=== PATIENT | female | born 1940 | race Caucasian/White ===

== ENCOUNTER 2017-06-02 11:43 | Inpatient (IN) | payer MEDICARE, OTHER, SELFPAY ==
[2017-06-02] VITALS (7 sets, daily range): BP systolic 123–146; BP diastolic 68–80; PULSE 76–102; RESP 16–20; TEMP 36.7–37.6; O2SAT 95–98; BMI 31.1; BMI 31.7; BMI 31.6
--- NOTE | 2017-06-02 12:30 | [facility].EDGENADL ---
ED Disposition Clinical Impression: Abscess of pelvis, Abdominal abscess, Diverticulitis of sigmoid colon, Cough Disposition: Admitted as Observation Condition on Discharge: Fair Referrals: Sherri Wild MD [Primary Care Provider] - - Critical Care Critical Care Time: No Attestation: On 06/02/17, the high probability of a clinically significant, sudden or life threatening deterioration of the following system(s) required my full and direct attention, intervention and personal management. The time I documented below is in addition to time spent performing reported procedures but includes the following listed in this critical care notation. Medical Decision Making Vital Signs: 06/02/17 11:51 06/02/17 14:22 Temperature 99.3 F 99.6 F Temperature Source Oral Oral Pulse Rate [Right Radial] 102 H 80 Respiratory Rate 16 16 Blood Pressure [Right Arm] 146/76 137/76 Blood Pressure Mean [Right Arm] 99 96 Blood Pressure Source [Right Arm] Automatic Cuff Automatic Cuff Blood Pressure Position [Right Arm] Supine Supine 02 Sat by Pulse Oximetry 98 97 Oxygen Delivery Method Room Air Room Air - Lab Data Lab Results 06/02/17 13:30: WBC 25.4 H*, RBC 4.68, Hgb 13.7, Hct 42.4, MCV 90.7, MCH 29.2, MCHC 32.2, RDW 14.9, Plt Count 239, MPV 8.0, Neut % (Auto) 94.6 H, Lymph % (Auto) 3.7 L, [place] % (Auto) 1.1 L, Eos % (Auto) 0.5, Baso % (Auto) 0.1, Neut # (Auto) 23.9 H, Lymph # (Auto) 0.9, [place] # (Auto) 0.3, Eos # (Auto) 0.1, Baso # (Auto) 0.0, Total Counted 100, Neutrophils % (Manual) 93 H, Lymphocytes % (Manual) 4 L, Monocytes % (Manual) 3, Platelet Estimate Normal, RBC Morphology Normal 06/02/17 13:30: Sodium 130 L, Potassium 3.7, Chloride 94 L, Carbon Dioxide 27, Anion Gap 12.7, BUN 15, Creatinine 0.90, Estimated Creat Clear 57, Estimated GFR 61, Est GFR ( Amer) 73, Glucose 138 H, Calcium 8.6, Total Bilirubin 0.8, AST 68 H, ALT 139 H, Alkaline Phosphatase 121 H, Total Protein 6.6, Albumin 2.5 L, Globulin 4.1 H, Albumin/Globulin Ratio 0.6 L 06/02/17 13:30: Lactic Acid 1.6 Result diagrams: 06/02/17 13:30 06/02/17 13:30 Orders (Tests/Meds): ED MEDICATIONS Discontinued Medications Generic Name Dose Route Start Last Admin Trade Name Freq PRN Reason Stop Dose Admin Acetaminophen 650 mg 06/02/17 14:24 06/02/17 14:25 Acetaminophen 325mg Tab PO 06/02/17 14:25 650 mg ONCE ONE Administration Sodium Chloride 1,000 mls @ 999 mls/hr 06/02/17 13:15 06/02/17 13:14 Sod Chloride 0.9% 1000ml Bag IV 06/02/17 14:15 999 mls/hr .Q1H1M LOIS Administration Ceftriaxone Sodium 1 gm/ 50 mls @ 100 mls/hr 06/02/17 13:06 06/02/17 13:16 Sodium Chloride IV 06/02/17 13:35 100 mls/hr ONCE ONE Administration ORDERS Category Date Time Status Urinalysis and Microscopic Stat Lab 06/02/17 14:24 Ordered Blood Culture Stat Micro 06/02/17 13:33 Received Sputum Culture & Gram Stain Stat Micro 06/02/17 14:15 Received - CT Data ED CT Reviewed: Yes: I have reviewed the patient's CT results, I discussed the CT results w/the radiologist, I have viewed the radiologist's interpretation - Physician Consults Physician Consulted: Dr. Killian surgery content publisher Reason -: Pt condition Comment/Response: Dr. Killian available as needed for consultation; we reviewed clinical condition as well as CT findings and lab results; recommend admit to PCP on ABX not surgical candidate at this time. Additional Consult: Dr. Pitt PCP content publisher for Dr. Wild Time: 14:42 Reason -: Admission Comment/Response: Brody Cancino, admit to Dr. Pitt - Chidi Inquiry Pt receiving controlled substance: No Medical Decision Making Narrative: Rocephin for R basilar atelectasis/cough/fever. Blood cultures sent; labs pending. Hasn't urinated yet. 1329 General Adult HPI - General Chief complaint: PAIN Stated complaint: low blood work Mode of Arrival: Ambulatory Limitations: Physical Limitations Description of Symptoms (Recalled from ER Triage
--- NOTE | 2017-06-02 12:35 | ED_ITS ---
ED Disposition Clinical Impression: Abscess of pelvis, Abdominal abscess, Diverticulitis of sigmoid colon, Cough Disposition: Admitted as Observation Condition on Discharge: Fair Referrals: Sherri Wild MD [Primary Care Provider] - - Critical Care Critical Care Time: No Attestation: On 06/02/17, the high probability of a clinically significant, sudden or life threatening deterioration of the following system(s) required my full and direct attention, intervention and personal management. The time I documented below is in addition to time spent performing reported procedures but includes the following listed in this critical care notation. Medical Decision Making Vital Signs: 06/02/17 11:51 06/02/17 14:22 Temperature 99.3 F 99.6 F Temperature Source Oral Oral Pulse Rate [Right Radial] 102 H 80 Respiratory Rate 16 16 Blood Pressure [Right Arm] 146/76 137/76 Blood Pressure Mean [Right Arm] 99 96 Blood Pressure Source [Right Arm] Automatic Cuff Automatic Cuff Blood Pressure Position [Right Arm] Supine Supine 02 Sat by Pulse Oximetry 98 97 Oxygen Delivery Method Room Air Room Air - Lab Data Lab Results 06/02/17 13:30: WBC 25.4 H*, RBC 4.68, Hgb 13.7, Hct 42.4, MCV 90.7, MCH 29.2, MCHC 32.2, RDW 14.9, Plt Count 239, MPV 8.0, Neut % (Auto) 94.6 H, Lymph % (Auto ) 3.7 L, [place] % (Auto) 1.1 L, Eos % (Auto) 0.5, Baso % (Auto) 0.1, Neut # (Auto ) 23.9 H, Lymph # (Auto) 0.9, [place] # (Auto) 0.3, Eos # (Auto) 0.1, Baso # (Auto ) 0.0, Total Counted 100, Neutrophils % (Manual) 93 H, Lymphocytes % (Manual) 4 L, Monocytes % (Manual) 3, Platelet Estimate Normal, RBC Morphology Normal 06/02/17 13:30: Sodium 130 L, Potassium 3.7, Chloride 94 L, Carbon Dioxide 27, Anion Gap 12.7, BUN 15, Creatinine 0.90, Estimated Creat Clear 57, Estimated GFR 61, Est GFR ( Amer) 73, Glucose 138 H, Calcium 8.6, Total Bilirubin 0.8, AST 68 H, ALT 139 H, Alkaline Phosphatase 121 H, Total Protein 6.6, Albumin 2.5 L, Globulin 4.1 H, Albumin/Globulin Ratio 0.6 L 06/02/17 13:30: Lactic Acid 1.6 Result diagrams: 06/02/17 13:30 06/02/17 13:30 Orders (Tests/Meds): ED MEDICATIONS Discontinued Medications Generic Name Dose Route Start Last Admin Trade Name Freq PRN Reason Stop Dose Admin Acetaminophen 650 mg 06/02/17 14:24 06/02/17 14:25 Acetaminophen 325mg Tab PO 06/02/17 14:25 650 mg ONCE ONE Administration Sodium Chloride 1,000 mls @ 999 mls/hr 06/02/17 13:15 06/02/17 13:14 Sod Chloride 0.9% 1000ml Bag IV 06/02/17 14:15 999 mls/hr .Q1H1M LOIS Administration Ceftriaxone Sodium 1 gm/ 50 mls @ 100 mls/hr 06/02/17 13:06 06/02/17 13:16 Sodium Chloride IV 06/02/17 13:35 100 mls/hr ONCE ONE Administration ORDERS Category Date Time Status Urinalysis and Microscopic Stat Lab 06/02/17 14:24 Ordered Blood Culture Stat Micro 06/02/17 13:33 Received Sputum Culture & Gram Stain Stat Micro 06/02/17 14:15 Received - CT Data ED CT Reviewed: Yes: I have reviewed the patient's CT results, I discussed the CT results w/the radiologist, I have viewed the radiologist's interpretation - Physician Consults Physician Consulted: Dr. Killian surgery talent development consultant Reason -: Pt condition Comment/Response: Dr. Killian available as needed for consultation; we reviewed clinical condition as well as CT findings and lab results; recommend ad
--- NOTE | 2017-06-02 12:38 | XR_ITS ---
XR chest 2V HISTORY: Cough and fever ITS.REASON: respiratory infection ORDERING PHYSICIAN: Louise Gtz MD PATIENT AGE: 77 years COMPARISON: 06/28/2016 FINDINGS: The cardiomediastinal silhouette and pulmonary vascularity are within normal limits. There is some eventration of the right hemidiaphragm posteriorly with minimal atelectatic change in the right lung base. No lobar consolidation or collapse.. There are multiple old right rib fractures with concave deformity of the right in the thorax. Degenerative changes are present in the thoracic spine with kyphosis.. IMPRESSION: No acute finding. Minimal right basilar atelectasis
--- NOTE | 2017-06-02 12:38 | CT_ITS ---
CT abdomen pelvis wo con CLINICAL INDICATION: Lower abdominal pain ITS.REASON: low abd pain ORDERING PHYSICIAN: Louise Gtz MD PATIENT AGE: 77 years COMPARISON: None TECHNIQUE: Axial images obtained with sagittal and coronal reformats. PROCEDURE: Oral Contrast: None IV Contrast: None . FINDINGS: Lower thoracic images show multiple old right-sided rib fractures and a calcified granuloma in the right lung base with minimal atelectatic change on the right. There is a small hiatal hernia. Prior cholecystectomy with mild prominence of the intra and extrahepatic biliary radicals which may be related to the previous cholecystectomy. The spleen, adrenal glands, pancreas, and kidneys show no acute finding. No hydronephrosis or obstructing ureteral calculus. There are postsurgical changes of the cecum. There is a moderate amount of retained colonic feces throughout the colon. There is diverticulosis of the sigmoid colon. Scattered fluid is present within the pelvis with foci of gas within the fluid. There is a collection of gas with a small air-fluid level in the left pelvic area measuring 4.3 x 2 cm. Stranding of the fat in the pelvis. These findings are likely due to diverticulitis with a perforated diverticulum with local gas in the pelvis. No distant or large amount of free air is evident. The exam is limited without IV and oral contrast. There is some increased soft tissue density along the left aspect of the mid sigmoid colon with a small focus of gas which may be related to the area of diverticulitis with surrounding phlegmonous change. Recommend repeat exam with both IV and appropriate oral contrast. There are degenerative changes in the spine and hips. IMPRESSION: There is fluid with foci of gas within the fluid in the pelvis and suspected developing abscess in the left pelvic region at 4 x 2 cm. Probably related to a locally perforated diverticulitis with phlegmonous change and early abscess. No distant gas or large pneumoperitoneum evident. Recommend repeating exam with appropriate oral and IV contrast for confirmation. Significant findings called to Dr. Gtz on 06/02/2017 2:31 PM.
--- NOTE | 2017-06-02 13:31 | INFXCTL.NOTE ---
CEFAZOLIN PULLED OUT UNDER PATIENTS NAME IN ERROR, MIXED WITH NS 100ML AND WASTED. MED WAS NOT GIVEN TO PT.
--- NOTE | 2017-06-02 13:33 | PC.NURSE ---
PT TO CT
[2017-06-02 13:49] LABS: Basophils % 0.1 % (0.1-2.0); Eosinophils # 0.1 K/mm3 (0.0-0.4); Eosinophils % 0.5 % (0.1-12.0); Hematocrit 42.4 % (37.0-47.0); Hemoglobin 13.7 g/dL (12.2-16.2); Lymphocytes # 0.9 K/mm3 (0.7-4.5); Lymphocytes % 3.7 K/mm3 (10-50); Mean Corpuscular HGB Conc 32.2 g/dL (31.8-35.4); Mean Corpuscular Hemoglobin 29.2 pg (27.0-31.2); Mean Corpuscular Volume 90.7 fl (81-99); Monocytes # 0.3 K/mm3 (0.1-1.0); Monocytes % 1.1 % (1.7-9.3); Neutrophils # 23.9 K/mm3 (1.8-7.8); Neutrophils % 94.6 % (37.0-80.0); Platelet Count 239 K/mm3 (142-424); Red Blood Count 4.68 M/mm3 (4.20-5.40); Red Cell Distribution Width 14.9 % (11.5-17.5)
[2017-06-02 13:52] LABS: Alanine Aminotransferase 139 U/L (12-78); Albumin Level 2.5 gm/dL (3.4-5.0); Albumin/Globulin Ratio 0.6 (1.1-1.8); Alkaline Phosphatase 121 U/L (46-116); Anion Gap 12.7 mEq/L (5-15); Aspartate Amino Transferase 68 U/L (15-37); Bilirubin,Total 0.8 mg/dL (0.2-1.0); Blood Urea Nitrogen 15 mg/dL (7-18); Calcium 8.6 mg/dL (8.5-10.1); Carbon Dioxide 27 mmol/L (21.0-32.0); Chloride 94 mmol/L (98-107); Creatinine Clearance Estimated 57 mL/min (0-300); Estimated Glomerular Filt Rate 61 ml/min (>60); GFR (African American) 73 ML/MIN (>60); Globulin 4.1 gm/dl (1.3-3.2); Glucose 138 mg/dL (74-106); Potassium 3.7 mmoL/L (3.5-5.1); Sodium 130 mmol/L (136-145); Total Protein,Serum 6.6 gm/dL (6.4-8.2); White Blood Count 25.4 K/mm3 (4.8-10.8)
[2017-06-02 13:53] LABS: MANUAL DIFFERENTIAL MANUAL DIFFERENTIAL (MANUAL DIFF)
[2017-06-02 13:55] LABS: Lactic Acid 1.6 mmol/L (0.4-2.0)
[2017-06-02 14:18] LABS: Lymphocytes % 4 % (10-50); Monocytes % 3 % (2-9); Neutrophils % 93 % (42-76); Platelet Estimate Normal; RBC Morphology Normal; Total Cells Counted 100
[2017-06-02 14:39] LABS: Microscopic, Urine URINE MICROSCOPIC (MICROSCOPIC)
[2017-06-02 14:41] LABS: Appearance,Urine CLEAR (Clear); Bilirubin,Urine Negative (Negative); Blood, Urine Negative (Negative); Color,Urine YELLOW (Yellow); Glucose,Urine (UA) Negative (Negative); Ketones,Urine Negative (Negative); Leukocyte Esterase,Urine Negative (Negative); Nitrate,Urine Negative (Negative); Protein,Urine TRACE (Negative); Specific Gravity, Urine 1.015 (1.005-1.030); Urobilinogen,Urine 0.2 EU/dl (0.2)
[2017-06-02 14:55] LABS: Bacteria,Urine 2+ /lpf; RBC,Urine Occasional #/hpf (0-3); Squamous Epithelial Cell,Urine Occasional #/hpf (0-5)
--- NOTE | 2017-06-02 16:00 | PC.NURSE ---
pt has finished contrast, radiology and 2nd floor aware
--- NOTE | 2017-06-02 16:28 | [facility].HP ---
*Admission Date: 06/02/17 *Chief complaint: Abdominal pain *History of present illness: 87-year-old female presented to the emergency department with lower abdominal pain present for a little over 24 hours. Patient had actually been seen in the office today by 1 of my nurse practitioners with complaints of severe lower quadrant abdominal pain. In the office patient had an elevated white blood cell count to 22,000. She was sent to the emergency department for additional workup and evaluation. In the ER patient's workup revealed elevated white blood cell count with an abnormal CT scan suggestive of a diverticular abscess versus early diverticulitis. Patient was given Levaquin and Flagyl and admitted. Surgical consultation is pending. Patient denies fevers or chills over the last 24 hours. She denies any history of prior diverticulosis or diverticulitis and does not believe she has ever had a colonoscopy. [facility] History Medical History: Denies:: Cancer, Diabetes Mellitus Type 1, Diabetes Mellitus Type 2, MRSA Laterality Cases: Left: Total Knee Replacement Other Surgeries: Yes: Hysterectomy-Total Amputation: No Fractures: No Comment: Cholecystectomy, lumbar spine surgery - *Social History Educational Level: Completed High School Smoking Status: Former smoker Alcohol Intake: never - Psychiatric History Expresses thoughts of harming self/others: None Suicide Plan Description: No Plan Review of Systems - Review of Systems Review of systems:: pertinent systems reviewed and negative unless documented below - Constitutional Reports fatigue, Reports weakness, Denies body ache(s), Denies chills, Denies fever(s) - *Cardiovascular Denies chest pain - *Respiratory Reports cough, Denies shortness of breath - *Gastrointestinal Reports abdominal pain, Denies change in stools, Denies coffee ground vomit, Denies constipation Meds Home Medications Medication Instructions Recorded Confirmed Type Amlodipine Besylate [Amlodipine 5 mg PO DAILY 06/02/17 06/02/17 History 10mg Tab] Baclofen [Lioresal 10mg tablet] 10 mg PO TID 06/02/17 06/02/17 History Calcium Carbonate/Vitamin D3 1 each PO DAILY 06/02/17 06/02/17 History [Caltrate 600 + D Soft Chew Tab] Cholecalciferol (Vitamin D3) 1,000 unit PO DAILY 06/02/17 06/02/17 History [Vitamin D3 1,000 Unit Cap] Esomeprazole Magnesium [Nexium] 10 mg PO DAILY 06/02/17 06/02/17 History Folic Acid 0.4 mg PO DAILY 06/02/17 06/02/17 History Metoprolol Succinate [Toprol XL 50 mg PO DAILY 06/02/17 06/02/17 History 50mg Tablet] Oxycodone HCl [Oxycodone (IR) 10mg 10 mg PO TID 06/02/17 06/02/17 History Tab] Ropinirole HCl 1 mg PO DAILY 06/02/17 06/02/17 History Simvastatin 10 mg PO DAILY 06/02/17 06/02/17 History Zolpidem Tartrate [Ambien 10mg 10 mg PO HS 06/02/17 06/02/17 History tablet] metHOTREXate sodium [metHOTREXate 7.5 mg PO WEEKLY 06/02/17 06/02/17 History 2.5mg Tablet] Allergies Allergy/AdvReac Type Severity Reaction Status Date / Time celecoxib [From CELEBREX] Allergy Unknown Verified 06/02/17 13:04 Exam Vital signs and Labs for Last 24 Hours: Temp Pulse Resp BP Pulse Ox 98.4 F 97 H 16 137/80 97 06/02/17 15:30 06/02/17 15:30 06/02/17 15:30 06/02/17 15:30 06/02/17 15:30 Laboratory Results - last 24 hr 06/02/17 13:30: WBC 25.4 H*, RBC 4.68, Hgb 13.7, Hct 42.4, MCV 90.7, MCH 29.2, MCHC 32.2, RDW 14.9, Plt Count 239, MPV 8.0, Neut % (Auto) 94.6 H, Lymph % (Auto) 3.7 L, [place] % (Auto) 1.1 L, Eos % (Auto) 0.5, Baso % (Auto) 0.1, Neut # (Auto) 23.9 H, Lymph # (Auto) 0.9, [place] # (Auto) 0.3, Eos # (Auto) 0.1, Baso # (Auto) 0.0, Total Counted 100, Neutrophils % (Manual) 93 H, Lymphocytes % (Manual) 4 L, Monocytes % (Manual) 3, Platelet Estimate Normal, RBC Morphology Normal 06/02/17 13:30: Sodium 130 L, Potassium 3.7, Chloride 94 L, Carbon Dioxide 27, Anion Gap 12.7, BUN 15, Creatinine 0.90, Estimated Creat Clear 57, Estimated GFR 61, Est GFR (Afri
--- NOTE | 2017-06-02 16:32 | P.HP_ITS ---
*Admission Date: 06/02/17 *Chief complaint: Abdominal pain *History of present illness: 87-year-old female presented to the emergency department with lower abdominal pain present for a little over 24 hours. Patient had actually been seen in the office today by 1 of my nurse practitioners with complaints of severe lower quadrant abdominal pain. In the office patient had an elevated white blood cell count to 22,000. She was sent to the emergency department for additional workup and evaluation. In the ER patient's workup revealed elevated white blood cell count with an abnormal CT scan suggestive of a diverticular abscess versus early diverticulitis. Patient was given Levaquin and Flagyl and admitted. Surgical consultation is pending. Patient denies fevers or chills over the last 24 hours. She denies any history of prior diverticulosis or diverticulitis and does not believe she has ever had a colonoscopy. [facility] History Medical History: Denies:: Cancer, Diabetes Mellitus Type 1, Diabetes Mellitus Type 2, MRSA Laterality Cases: Left: Total Knee Replacement Other Surgeries: Yes: Hysterectomy-Total Amputation: No Fractures: No Comment: Cholecystectomy, lumbar spine surgery - *Social History Educational Level: Completed High School Smoking Status: Former smoker Alcohol Intake: never - Psychiatric History Expresses thoughts of harming self/others: None Suicide Plan Description: No Plan Review of Systems - Review of Systems Review of systems:: pertinent systems reviewed and negative unless documented below - Constitutional Reports fatigue, Reports weakness, Denies body ache(s), Denies chills, Denies fever(s) - *Cardiovascular Denies chest pain - *Respiratory Reports cough, Denies shortness of breath - *Gastrointestinal Reports abdominal pain, Denies change in stools, Denies coffee ground vomit, Denies constipation Meds Home Medications Medication Instructions Recorded Confirmed Type Amlodipine Besylate [Amlodipine 5 mg PO DAILY 06/02/17 06/02/17 History 10mg Tab] Baclofen [Lioresal 10mg tablet] 10 mg PO TID 06/02/17 06/02/17 History Calcium Carbonate/Vitamin D3 1 each PO DAILY 06/02/17 06/02/17 History [Caltrate 600 + D Soft Chew Tab] Cholecalciferol (Vitamin D3) 1,000 unit PO DAILY 06/02/17 06/02/17 History [Vitamin D3 1,000 Unit Cap] Esomeprazole Magnesium [Nexium] 10 mg PO DAILY 06/02/17 06/02/17 History Folic Acid 0.4 mg PO DAILY 06/02/17 06/02/17 History Metoprolol Succinate [Toprol XL 50 mg PO DAILY 06/02/17 06/02/17 History 50mg Tablet] Oxycodone HCl [Oxycodone (IR) 10mg 10 mg PO TID 06/02/17 06/02/17 History Tab] Ropinirole HCl 1 mg PO DAILY 06/02/17 06/02/17 History Simvastatin 10 mg PO DAILY 06/02/17 06/02/17 History Zolpidem Tartrate [Ambien 10mg 10 mg PO HS 06/02/17 06/02/17 History tablet] metHOTREXate sodium [metHOTREXate 7.5 mg PO WEEKLY 06/02/17 06/02/17 History 2.5mg Tablet] Allergies Allergy/AdvReac Type Severity Reaction Status Date / Time celecoxib [From CELEBREX] Allergy Unknown Verified 06/02/17 13:04 Exam Vital signs and Labs for Last 24 Hours: Temp Pulse Resp BP Pulse Ox 98.4 F 97 H 16 137/80 97 06/02/17 15:30 06/02/17 15:30 06/02/17 15:30 06/02/17 15:30 06/02/17 15:30 Laboratory Results - last 24 hr 06/02/17 13:30: WBC 25.4 H*, RBC 4.68, Hgb 13.7, Hct 42.4, MCV 90.7
--- NOTE | 2017-06-02 17:32 | HMH.GSCON ---
*Admission Date: 06/02/17 *Chief complaint: abdominal pain *History of present illness: This is an 87-year-old female seen in consultation from Dr. Pitt for evaluation and management of diverticulitis. She presented to the emergency department with lower abdominal pain for about a day . The following has been copied from the patient's history and physical as per Dr. Pitt: 87-year-old female presented to the emergency department with lower abdominal pain present for a little over 24 hours. Patient had actually been seen in the office today by 1 of my nurse practitioners with complaints of severe lower quadrant abdominal pain. In the office patient had an elevated white blood cell count to 22,000. She was sent to the emergency department for additional workup and evaluation. In the ER patient's workup revealed elevated white blood cell count with an abnormal CT scan suggestive of a diverticular abscess versus early diverticulitis. Patient was given Levaquin and Flagyl and admitted. Patient denies fevers or chills over the last 24 hours. She denies any history of prior diverticulosis or diverticulitis and does not believe she has ever had a colonoscopy. Review of Systems - Constitutional Denies weight loss - *Cardiovascular Denies chest pain - *Respiratory Reports cough - *Gastrointestinal Reports abdominal pain, Denies bright, red blood in stools, Denies black, tarry stools - *Neurologic Reports weakness, Denies dizziness - Psychiatric Denies anxiety - Hematologic/Lymphatic Denies easy bleeding [facility] History Medical History: Reports:: Hypertension, Peripheral Vascular Disease Denies:: Cancer, Diabetes Mellitus Type 1, Diabetes Mellitus Type 2, MRSA Other Medical History: Reports: Cataracts Laterality Cases: Left: Total Knee Replacement, Bilateral: Cataract Other Surgeries: Yes: Appendectomy, Hysterectomy-Total Amputation: No Fractures: No - *Social History Educational Level: Completed High School Smoking Status: Former smoker Alcohol Intake: never Occupational Status: retired Housing: house Household Members: none - Psychiatric History Expresses thoughts of harming self/others: None Suicide Plan Description: No Plan *Family Hx:: No significant family history Meds Home Medications Medication Instructions Recorded Confirmed Type Amlodipine Besylate [Amlodipine 5 mg PO DAILY 06/02/17 06/02/17 History 10mg Tab] Baclofen [Lioresal 10mg tablet] 10 mg PO TID 06/02/17 06/02/17 History Calcium Carbonate/Vitamin D3 1 each PO DAILY 06/02/17 06/02/17 History [Caltrate 600 + D Soft Chew Tab] Cholecalciferol (Vitamin D3) 1,000 unit PO DAILY 06/02/17 06/02/17 History [Vitamin D3 1,000 Unit Cap] Esomeprazole Magnesium [Nexium] 10 mg PO DAILY 06/02/17 06/02/17 History Folic Acid 0.4 mg PO DAILY 06/02/17 06/02/17 History Metoprolol Succinate [Toprol XL 50 mg PO DAILY 06/02/17 06/02/17 History 50mg Tablet] Oxycodone HCl [Oxycodone (IR) 10mg 10 mg PO TID 06/02/17 06/02/17 History Tab] Ropinirole HCl 1 mg PO DAILY 06/02/17 06/02/17 History Simvastatin 10 mg PO DAILY 06/02/17 06/02/17 History Zolpidem Tartrate [Ambien 10mg 10 mg PO HS 06/02/17 06/02/17 History tablet] metHOTREXate sodium [metHOTREXate 7.5 mg PO WEEKLY 06/02/17 06/02/17 History 2.5mg Tablet] Allergies Allergy/AdvReac Type Severity Reaction Status Date / Time celecoxib [From CELEBREX] Allergy Unknown Verified 06/02/17 13:04 Exam Vital signs and Labs for Last 24 Hours: Temp Pulse Resp BP Pulse Ox 98.1 F 78 18 123/71 98 06/02/17 17:14 06/02/17 17:14 06/02/17 17:14 06/02/17 17:14 06/02/17 17:14 I & O for Last 24 hours: Intake & Output 05/31/17 06/01/17 06/02/17 06/03/17 11:59 11:59 11:59 11:59 Intake Total 1100 / 1100 Balance 1100 / 1100 Weight 173 lb 5 oz - Constitutional no acute distress - *Routine HEENT Exam Head: Present: normocephalic, atraumatic - *Routine R
--- NOTE | 2017-06-02 17:35 | P.CONS_ITS ---
*Admission Date: 06/02/17 *Chief complaint: abdominal pain *History of present illness: This is an 87-year-old female seen in consultation from Dr. Pitt for evaluation and management of diverticulitis. She presented to the emergency department with lower abdominal pain for about a day . The following has been copied from the patient's history and physical as per Dr. Pitt: 87-year-old female presented to the emergency department with lower abdominal pain present for a little over 24 hours. Patient had actually been seen in the office today by 1 of my nurse practitioners with complaints of severe lower quadrant abdominal pain. In the office patient had an elevated white blood cell count to 22,000. She was sent to the emergency department for additional workup and evaluation. In the ER patient's workup revealed elevated white blood cell count with an abnormal CT scan suggestive of a diverticular abscess versus early diverticulitis. Patient was given Levaquin and Flagyl and admitted. Patient denies fevers or chills over the last 24 hours. She denies any history of prior diverticulosis or diverticulitis and does not believe she has ever had a colonoscopy. Review of Systems - Constitutional Denies weight loss - *Cardiovascular Denies chest pain - *Respiratory Reports cough - *Gastrointestinal Reports abdominal pain, Denies bright, red blood in stools, Denies black, tarry stools - *Neurologic Reports weakness, Denies dizziness - Psychiatric Denies anxiety - Hematologic/Lymphatic Denies easy bleeding [facility] History Medical History: Reports:: Hypertension, Peripheral Vascular Disease Denies:: Cancer, Diabetes Mellitus Type 1, Diabetes Mellitus Type 2, MRSA Other Medical History: Reports: Cataracts Laterality Cases: Left: Total Knee Replacement, Bilateral: Cataract Other Surgeries: Yes: Appendectomy, Hysterectomy-Total Amputation: No Fractures: No - *Social History Educational Level: Completed High School Smoking Status: Former smoker Alcohol Intake: never Occupational Status: retired Housing: house Household Members: none - Psychiatric History Expresses thoughts of harming self/others: None Suicide Plan Description: No Plan *Family Hx:: No significant family history Meds Home Medications Medication Instructions Recorded Confirmed Type Amlodipine Besylate [Amlodipine 5 mg PO DAILY 06/02/17 06/02/17 History 10mg Tab] Baclofen [Lioresal 10mg tablet] 10 mg PO TID 06/02/17 06/02/17 History Calcium Carbonate/Vitamin D3 1 each PO DAILY 06/02/17 06/02/17 History [Caltrate 600 + D Soft Chew Tab] Cholecalciferol (Vitamin D3) 1,000 unit PO DAILY 06/02/17 06/02/17 History [Vitamin D3 1,000 Unit Cap] Esomeprazole Magnesium [Nexium] 10 mg PO DAILY 06/02/17 06/02/17 History Folic Acid 0.4 mg PO DAILY 06/02/17 06/02/17 History Metoprolol Succinate [Toprol XL 50 mg PO DAILY 06/02/17 06/02/17 History 50mg Tablet] Oxycodone HCl [Oxycodone (IR) 10mg 10 mg PO TID 06/02/17 06/02/17 History Tab] Ropinirole HCl 1 mg PO DAILY 06/02/17 06/02/17 History Simvastatin 10 mg PO DAILY 06/02/17 06/02/17 History Zolpidem Tartrate [Ambien 10mg 10 mg PO HS 06/02/17 06/02/17 History tablet] metHOTREXate sodium [metHOTREXate 7.5 mg PO WEEKLY 06/02/17 06/02/17 History 2.5mg Tablet] Allergies Allergy/AdvReac Type Severity Reaction Status Date / Time celecoxib [From CELEBREX] Allergy Unkno
--- NOTE | 2017-06-02 18:58 | PC.NURSE ---
I CONFIRMED WITH PATIENT FAMILY THAT SHE TOOK HER METHOTREXATE YESTERDAY 06/01/17
--- NOTE | 2017-06-02 19:15 | PC.NURSE ---
PT FULL CODE; REPORT RECEIVED FROM LUDWIG
--- NOTE | 2017-06-02 20:07 | CT_ITS ---
CT abdomen pelvis w con CLINICAL INDICATION: Follow-up pelvic abscess ITS.REASON: pelvic abscess on CT w/o contrast; f/u PO/IV contr ORDERING PHYSICIAN: Kiko Pitt MD PATIENT AGE: 77 years COMPARISON: Previous exam of the same day TECHNIQUE: Axial images obtained with sagittal and coronal reformats. PROCEDURE: Oral Contrast: Gastroview IV Contrast: 75 mL of Isovue-370. FINDINGS: Repeat images performed of the abdomen and pelvis with IV and oral contrast. Delayed images are also obtained of the pelvis. Extra colonic gas interspersed within pelvic fluid is once again noted. There is an inflamed diverticulum present projecting off the left lateral aspect of the mid sigmoid colon consistent with diverticulitis. Left-sided pelvic gas collection with air-fluid level noted consistent with early abscess measuring 4 x 2 cm There is some mild thickening of the urinary bladder. No distant free air is evident. No intestinal obstruction. There is prominence of the intra and extrahepatic biliary radicals and is patient that has had prior cholecystectomy. Common hepatic duct measures up to 15 mm. IMPRESSION: Sigmoid diverticulitis with local perforation with extra colic gas in the pelvis scattered pelvic fluid. Left-sided pelvic abscess noted as before measuring approximately 4 x 2 cm
[2017-06-03 04:00] VITALS: BP 141/72; PULSE 89; RESP 24; TEMP 37; O2SAT 96
--- NOTE | 2017-06-03 05:03 | PC.NURSE ---
PT ALERT, PLEASANTLY CONFUSED AT TIMES. PT HAS NOT COMPLAINED OF PAIN OR DISCOMFORT THIS SHIFT. SHE HAS SLEPT LONG INTERVALS. SCATTERED WHEEZES. NO COUGHING NOTED. IV #20 LAC INFUSING D5 1/2NS@50ML/HR, W/O S/S OF REDNESS OR EDEMA. PT CONTINUES RECEIVING IV ABX. TOLERATING CLEAR LIQUIDS WELL. PT STABLE. WILL CONTINUE TO MONITOR. REPORT TO BE GIVEN TO ONCOMING NURSE.
--- NOTE | 2017-06-03 07:16 | PC.NURSE ---
REPORT GIVEN TO Sherri SANTILLAN W/C
--- NOTE | 2017-06-03 07:26 | HMH.GSPN ---
Subjective Patient reports: no new complaints, flatus (feels slightly better) Exam Vital signs and Labs for Last 24 Hours: Temp Pulse Resp BP Pulse Ox 98.6 F 89 24 141/72 96 06/03/17 04:00 06/03/17 04:00 06/03/17 04:00 06/03/17 04:00 06/03/17 04:00 I & O for Last 24 hours: Intake & Output 05/31/17 06/01/17 06/02/17 06/03/17 11:59 11:59 11:59 11:59 Intake Total 1938 Balance 1938 Weight 173 lb 5 oz - Constitutional no acute distress - *Routine Respiratory Exam Absent: respiratory distress - *Routine Cardiovascular Exam Comments: unchanged - *Routine Abdominal Exam Present: soft (slightly less TTP) Progress Note: A&P (1) Diverticulitis of sigmoid colon Status: Acute Assessment and plan: The patient has shown slight improvement. Abscess immature and not amenable to drainage. continue abx serial exams full liquids repeat CT with contrast in ~7 days to assess abscess for possible resolution or maturation and potential need for drainage Current Visit: Yes
[2017-06-03 07:50] LABS: Basophils % 0.1 % (0.1-2.0); Eosinophils % 0.2 % (0.1-12.0); Hematocrit 35.2 % (37.0-47.0); Lymphocytes # 1.6 K/mm3 (0.7-4.5); Lymphocytes % 7.8 K/mm3 (10-50); Mean Corpuscular HGB Conc 32.2 g/dL (31.8-35.4); Mean Corpuscular Hemoglobin 29.7 pg (27.0-31.2); Mean Corpuscular Volume 92.2 fl (81-99); Mean Platelet Volume 7.9 fl (7.4-10.4); Monocytes # 0.4 K/mm3 (0.1-1.0); Monocytes % 1.8 % (1.7-9.3); Neutrophils # 17.8 K/mm3 (1.8-7.8); Neutrophils % 90.1 % (37.0-80.0); Platelet Count 217 K/mm3 (142-424); Red Blood Count 3.82 M/mm3 (4.20-5.40); Red Cell Distribution Width 14.9 % (11.5-17.5); White Blood Count 19.8 K/mm3 (4.8-10.8)
--- NOTE | 2017-06-03 07:51 | P.PN_ITS ---
Internal Medicine - PN: Subj *Date: 06/03/17 *Time: 07:49 Interval history: Patient believes she feels better. She still has some lower abdominal pain. She denies nausea or vomiting. No fevers overnight. Exam Vital signs and Labs for Last 24 Hours: Temp Pulse Resp BP Pulse Ox 98.6 F 89 24 141/72 96 06/03/17 04:00 06/03/17 04:00 06/03/17 04:00 06/03/17 04:00 06/03/17 04:00 Laboratory Results - last 24 hr 06/02/17 13:30: WBC 25.4 H*, RBC 4.68, Hgb 13.7, Hct 42.4, MCV 90.7, MCH 29.2, MCHC 32.2, RDW 14.9, Plt Count 239, MPV 8.0, Neut % (Auto) 94.6 H, Lymph % (Auto ) 3.7 L, Mcclain % (Auto) 1.1 L, Eos % (Auto) 0.5, Baso % (Auto) 0.1, Neut # (Auto ) 23.9 H, Lymph # (Auto) 0.9, [place]clain # (Auto) 0.3, Eos # (Auto) 0.1, Baso # (Auto ) 0.0, Total Counted 100, Neutrophils % (Manual) 93 H, Lymphocytes % (Manual) 4 L, Monocytes % (Manual) 3, Platelet Estimate Normal, RBC Morphology Normal 06/02/17 13:30: Sodium 130 L, Potassium 3.7, Chloride 94 L, Carbon Dioxide 27, Anion Gap 12.7, BUN 15, Creatinine 0.90, Estimated Creat Clear 57, Estimated GFR 61, Est GFR ( Amer) 73, Glucose 138 H, Calcium 8.6, Total Bilirubin 0.8, AST 68 H, ALT 139 H, Alkaline Phosphatase 121 H, Total Protein 6.6, Albumin 2.5 L, Globulin 4.1 H, Albumin/Globulin Ratio 0.6 L 06/02/17 13:30: Lactic Acid 1.6 06/02/17 14:20: Influenza Type A Ag Negative, Influenza Type B Ag Negative 06/02/17 14:24: Urine Color Yellow, Urine Appearance Clear, Urine pH 8.0, Ur Specific Comfrey 1.015, Urine Protein Trace, Urine Glucose (UA) Negative, Urine Ketones Negative, Urine Blood Negative, Urine Nitrate Negative, Urine Bilirubin Negative, Urine Urobilinogen 0.2, Ur Leukocyte Esterase Negative, Urine RBC Occasional, Urine WBC 5-10, Ur Squamous Epith Cells Occasional, Urine Bacteria 2 + I & O for Last 24 hours: Intake & Output 05/31/17 06/01/17 06/02/17 06/03/17 11:59 11:59 11:59 11:59 Intake Total 1938 Balance 1938 Weight 173 lb 5 oz Narrative: Patient is awake and alert. Lungs are clear. Heart has a regular rate and rhythm. Abdomen has mild tenderness in left lower and right lower quadrant. Assessment and Plan (1) Diverticulitis of sigmoid colon Current visit: Yes Status: Acute Category: Medical Code(s): K57.32 - Diverticulitis of large intestine without perforation or abscess without bleeding - Assessment and plan all Dx Assessment and Plan for all problems:: Continue serial CBCs and serial abdominal examinations. Continue liquid diet
[2017-06-03 08:00] VITALS: PULSE 87; RESP 18; O2SAT 97
[2017-06-03 08:26] VITALS: BP 119/63; PULSE 87; RESP 18; TEMP 36.7; O2SAT 97
[2017-06-03 08:28] LABS: MANUAL DIFFERENTIAL MANUAL DIFFERENTIAL (MANUAL DIFF)
[2017-06-03 08:29] LABS: Hemoglobin 11.4 g/dL (12.2-16.2)
[2017-06-03 09:15] LABS: Anion Gap 9.8 mEq/L (5-15); Blood Urea Nitrogen 13 mg/dL (7-18); Carbon Dioxide 30 mmol/L (21.0-32.0); Chloride 100 mmol/L (98-107); Creatinine Clearance Estimated 58 mL/min (0-300); Creatinine,Serum 0.82 mg/dL (0.55-1.02); Estimated Glomerular Filt Rate 68 ml/min (>60); GFR (African American) 82 ML/MIN (>60); Glucose 133 mg/dL (74-106); Potassium 3.8 mmoL/L (3.5-5.1); Sodium 136 mmol/L (136-145)
[2017-06-03 10:41] LABS: Lymphocytes % 9 % (10-50); Monocytes % 2 % (2-9); Neutrophils % 89 % (42-76); Platelet Estimate Normal; RBC Morphology Normal; Total Cells Counted 100
--- NOTE | 2017-06-03 10:46 | P.CONPHA_ITS ---
[facility] Pharmacy VTE Monitoring - Patient Demographics Admission date: 06/02/17 Report Date: 06/03/17 Time: 10:46 Allergies/Adverse Reactions: Patient Allergies celecoxib [From CELEBREX] Allergy (Unknown, Verified 06/02/17 13:04) Height: 1.57 m Weight: 78.613 kg Patient Problems: Current Active Problems Abscess of pelvis (Acute) Abdominal abscess (Acute) Diverticulitis of sigmoid colon (Acute) Cough (Acute) - VTE Risk Labs: VTE Related Lab Results Hgb 11.4 g/dL (12.2-16.2) L D 06/03/17 06:45 Hct 35.2 % (37.0-47.0) L 06/03/17 06:45 Plt Count 217 K/mm3 (142-424) 06/03/17 06:45 BUN 13 mg/dL (7-18) 06/03/17 06:45 Creatinine 0.82 mg/dL (0.55-1.02) 06/03/17 06:45 Estimated Creat Clear 58 mL/min (0-300) 06/03/17 06:45 Was VTE Risk Assessment Performed: Yes VTE Score: 3 VTE Risk Level: Low Risk - Prophylaxis VTE Prophylaxis Ordered?: Yes Types of VTE Prophylaxis: TEDS Knee High Location of Applied Device: Bilateral Lower Extremeties - VTE Diagnosis Confirmed Treatment or plan recommended: Continue Current Treatment
--- NOTE | 2017-06-03 15:40 | PC.NURSE ---
A&O X3. Lungs clear, bowel sounds normal. Lower abd mildly tender to palpation. Treated w/prn pain med x1 thus far. Pain was reported a 7/10 w/pt reporting relief after receiving meds. She has remained afebrile. She has been up to the chair and ambulating around her room short distances independently. Tolerating full liquid diet w/no complaints noted. Family has been at bedside. Will continue to monitor.
[2017-06-03 16:10] VITALS: BP 123/76; PULSE 90; RESP 18; TEMP 36.9; O2SAT 94
--- NOTE | 2017-06-03 18:58 | PC.NURSE ---
report to be given to willis honeycutt rn
--- NOTE | 2017-06-03 19:00 | PC.NURSE ---
PT FULL CODE, REPORT RECEIVED FROM JANNA
[2017-06-03 20:06] VITALS: BP 112/53; PULSE 83; RESP 16; TEMP 37.1; O2SAT 95
[2017-06-03 21:20] VITALS: O2SAT 95
[2017-06-04 03:32] VITALS: BP 147/76; PULSE 74; RESP 18; TEMP 36.9; O2SAT 95
--- NOTE | 2017-06-04 04:52 | PC.NURSE ---
PT SLEPT LONG INTERVALS THIS SHIFT. IV SECURE AND PATENT D5W1/2NS@50/HR. CONTINUES ON FLAGYL. TOLERATING FULL LIQUID DIET. HAS LABS ORDERED 0600. RESPIRATIONS EVEN AND UNLABORED, BREATH SOUNDS SCATTERED WHEEZES. PT HAS COUGH, MOSTLY DRY AND HACKY. HAS TEDS ON BOTH LEGS. NO C/O CHEST PAIN OR SOA. ON ROOM AIR. C/O ABD PAIN X2 THIS SHIFT AND MEDICATION GIVEN PER JUL. PT STABLE. WILL CONTINUE TO MONITOR. REPORT TO BE GIVEN TO ONCOMING NURSE.
[2017-06-04 06:25] LABS: Basophils % 0.1 % (0.1-2.0); Eosinophils # 0.1 K/mm3 (0.0-0.4); Eosinophils % 0.9 % (0.1-12.0); Hematocrit 37.2 % (37.0-47.0); Hemoglobin 11.7 g/dL (12.2-16.2); Lymphocytes # 1.7 K/mm3 (0.7-4.5); Lymphocytes % 11.3 K/mm3 (10-50); Mean Corpuscular HGB Conc 31.3 g/dL (31.8-35.4); Mean Corpuscular Volume 92.5 fl (81-99); Mean Platelet Volume 7.9 fl (7.4-10.4); Monocytes # 0.3 K/mm3 (0.1-1.0); Neutrophils # 13.3 K/mm3 (1.8-7.8); Neutrophils % 85.7 % (37.0-80.0); Platelet Count 258 K/mm3 (142-424); Red Blood Count 4.02 M/mm3 (4.20-5.40); Red Cell Distribution Width 14.7 % (11.5-17.5); White Blood Count 15.5 K/mm3 (4.8-10.8)
[2017-06-04 06:29] LABS: MANUAL DIFFERENTIAL MANUAL DIFFERENTIAL (MANUAL DIFF)
[2017-06-04 06:38] LABS: Lymphocytes % 12 % (10-50); Neutrophils % 80 % (42-76); Platelet Estimate Normal; Polychromasia 1+; Total Cells Counted 100
[2017-06-04 06:39] LABS: Anisocytosis 1+; Rouleaux 1+
--- NOTE | 2017-06-04 07:15 | PC.NURSE ---
REPORT GIVEN TO Sherri SANTILLAN W/C
[2017-06-04 08:00] VITALS: RESP 20; O2SAT 96
[2017-06-04 08:12] VITALS: BP 122/54; PULSE 84; RESP 20; TEMP 36.4; O2SAT 96
--- NOTE | 2017-06-04 08:41 | HMH.ACPN2 ---
Internal Medicine - PN: Subj *Date: 06/04/17 *Time: 08:41 Interval history: Patient had a comfortable night, feels better, has less abdominal pain and no vomiting, tolerating diet well. Laboratory Tests 06/03/17 06/04/17 06:45 06:15 WBC 15.5 H Creatinine 0.82 Exam Vital signs and Labs for Last 24 Hours: Temp Pulse Resp BP Pulse Ox 97.5 F L 84 20 122/54 96 06/04/17 08:12 06/04/17 08:12 06/04/17 08:12 06/04/17 08:12 06/04/17 08:12 Laboratory Results - last 24 hr 06/03/17 06:45: Total Counted 100, Neutrophils % (Manual) 89 H, Lymphocytes % (Manual) 9 L, Monocytes % (Manual) 2, Platelet Estimate Normal, RBC Morphology Normal 06/03/17 06:45: Sodium 136, Potassium 3.8, Chloride 100, Carbon Dioxide 30, Anion Gap 9.8, BUN 13, Creatinine 0.82, Estimated Creat Clear 58, Estimated GFR 68, Est GFR ( Amer) 82, Glucose 133 H 06/04/17 06:15: WBC 15.5 H, RBC 4.02 L, Hgb 11.7 L, Hct 37.2, MCV 92.5, MCH 29.0, MCHC 31.3 L, RDW 14.7, Plt Count 258, MPV 7.9, Neut % (Auto) 85.7 H, Lymph % (Auto) 11.3, Schleicher % (Auto) 2.0, Eos % (Auto) 0.9, Baso % (Auto) 0.1, Neut # (Auto) 13.3 H, Lymph # (Auto) 1.7, Schleicher # (Auto) 0.3, Eos # (Auto) 0.1, Baso # (Auto) 0.0, Total Counted 100, Neutrophils % (Manual) 80 H, Band Neutrophils % 8.0, Lymphocytes % (Manual) 12, Platelet Estimate Normal, Polychromasia 1+, Anisocytosis 1+, Rouleaux 1+ I & O for Last 24 hours: Intake & Output 06/01/17 06/02/17 06/03/17 06/04/17 11:59 11:59 11:59 11:59 Intake Total 2499 / 2499 3418 / 3418 Balance 2499 / 2499 3418 / 3418 Weight 173 lb 5 oz Narrative: Patient is alert, pleasant, oriented. Lungs are clear, heart rate regular, abdomen soft and nontender. Minimal discomfort in the left lower quadrant the patient reports is much better. Assessment and Plan - Assessment and plan all Dx Assessment and Plan for all problems:: Overall improving, leukocytosis resolving. Continue current management.
--- NOTE | 2017-06-04 08:59 | HMH.GSPN ---
Subjective Patient reports: feels better Exam Vital signs and Labs for Last 24 Hours: Temp Pulse Resp BP Pulse Ox 97.5 F L 84 20 122/54 96 06/04/17 08:12 06/04/17 08:12 06/04/17 08:12 06/04/17 08:12 06/04/17 08:12 Laboratory Results - last 24 hr 06/03/17 06:45: Total Counted 100, Neutrophils % (Manual) 89 H, Lymphocytes % (Manual) 9 L, Monocytes % (Manual) 2, Platelet Estimate Normal, RBC Morphology Normal 06/03/17 06:45: Sodium 136, Potassium 3.8, Chloride 100, Carbon Dioxide 30, Anion Gap 9.8, BUN 13, Creatinine 0.82, Estimated Creat Clear 58, Estimated GFR 68, Est GFR ( Amer) 82, Glucose 133 H 06/04/17 06:15: WBC 15.5 H, RBC 4.02 L, Hgb 11.7 L, Hct 37.2, MCV 92.5, MCH 29.0, MCHC 31.3 L, RDW 14.7, Plt Count 258, MPV 7.9, Neut % (Auto) 85.7 H, Lymph % (Auto) 11.3, [place] % (Auto) 2.0, Eos % (Auto) 0.9, Baso % (Auto) 0.1, Neut # (Auto) 13.3 H, Lymph # (Auto) 1.7, [place] # (Auto) 0.3, Eos # (Auto) 0.1, Baso # (Auto) 0.0, Total Counted 100, Neutrophils % (Manual) 80 H, Band Neutrophils % 8.0, Lymphocytes % (Manual) 12, Platelet Estimate Normal, Polychromasia 1+, Anisocytosis 1+, Rouleaux 1+ I & O for Last 24 hours: Intake & Output 06/01/17 06/02/17 06/03/17 06/04/17 11:59 11:59 11:59 11:59 Intake Total 2499 / 2499 3418 / 3418 Balance 2499 / 2499 3418 / 3418 Weight 173 lb 5 oz - Constitutional no acute distress - *Routine Respiratory Exam Absent: respiratory distress - *Routine Cardiovascular Exam Comments: unchanged - *Routine Abdominal Exam Present: soft Comments: somewhat less TTP Progress Note: A&P (1) Diverticulitis of sigmoid colon Status: Acute Assessment and plan: Improving on IV antibiotics Continue IV antibiotics Consider PICC for possible IV antibiotics at home If the patient continues to improve, repeat CT scan with contrast and possible abscess drainage in approximately 1 week Current Visit: Yes
--- NOTE | 2017-06-04 09:06 | P.PN_ITS ---
Subjective Patient reports: feels better Exam Vital signs and Labs for Last 24 Hours: Temp Pulse Resp BP Pulse Ox 97.5 F L 84 20 122/54 96 06/04/17 08:12 06/04/17 08:12 06/04/17 08:12 06/04/17 08:12 06/04/17 08:12 Laboratory Results - last 24 hr 06/03/17 06:45: Total Counted 100, Neutrophils % (Manual) 89 H, Lymphocytes % ( Manual) 9 L, Monocytes % (Manual) 2, Platelet Estimate Normal, RBC Morphology Normal 06/03/17 06:45: Sodium 136, Potassium 3.8, Chloride 100, Carbon Dioxide 30, Anion Gap 9.8, BUN 13, Creatinine 0.82, Estimated Creat Clear 58, Estimated GFR 68, Est GFR ( Amer) 82, Glucose 133 H 06/04/17 06:15: WBC 15.5 H, RBC 4.02 L, Hgb 11.7 L, Hct 37.2, MCV 92.5, MCH 29.0 , MCHC 31.3 L, RDW 14.7, Plt Count 258, MPV 7.9, Neut % (Auto) 85.7 H, Lymph % ( Auto) 11.3, [place] % (Auto) 2.0, Eos % (Auto) 0.9, Baso % (Auto) 0.1, Neut # (Auto ) 13.3 H, Lymph # (Auto) 1.7, [place] # (Auto) 0.3, Eos # (Auto) 0.1, Baso # (Auto ) 0.0, Total Counted 100, Neutrophils % (Manual) 80 H, Band Neutrophils % 8.0, Lymphocytes % (Manual) 12, Platelet Estimate Normal, Polychromasia 1+, Anisocytosis 1+, Rouleaux 1+ I & O for Last 24 hours: Intake & Output 06/01/17 06/02/17 06/03/17 06/04/17 11:59 11:59 11:59 11:59 Intake Total 2499 / 2499 3418 / 3418 Balance 2499 / 2499 3418 / 3418 Weight 173 lb 5 oz - Constitutional no acute distress - *Routine Respiratory Exam Absent: respiratory distress - *Routine Cardiovascular Exam Comments: unchanged - *Routine Abdominal Exam Present: soft Comments: somewhat less TTP Progress Note: A&P (1) Diverticulitis of sigmoid colon Status: Acute Assessment and plan: Improving on IV antibiotics Continue IV antibiotics Consider PICC for possible IV antibiotics at home If the patient continues to improve, repeat CT scan with contrast and possible abscess drainage in approximately 1 week Current Visit: Yes
[2017-06-04 15:29] VITALS: BP 116/59; PULSE 85; RESP 18; TEMP 37.1; O2SAT 98
--- NOTE | 2017-06-04 15:49 | PC.NURSE ---
Pt's lungs are clear. Bowel sounds active. Lower abd is slightly tender to palpation. Prn pain meds were requested q4hrs for abd pain rated a 7/10. She verbalizes relief w/administration of pain med. Heart has rrr. She has remained afebrile thus far. She has been up to the chair and has ambulated around her room independently. Family has been at bedside intermittently. Report to be given to oncoming nurse. Will continue to monitor.
--- NOTE | 2017-06-04 18:49 | PC.NURSE ---
Report to be given to Nirmala Garnica RN
--- NOTE | 2017-06-04 19:15 | PC.NURSE ---
PT FULL CODE; REPORT RECEIVED FROM JANNA
[2017-06-04 20:00] VITALS: BP 139/80; PULSE 84; RESP 18; TEMP 37.3; O2SAT 96
[2017-06-04 20:37] VITALS: O2SAT 96
[2017-06-05 04:00] VITALS: BP 125/79; PULSE 76; RESP 76; TEMP 36.7; O2SAT 98
[2017-06-05 04:22] LABS: Basophils % 0.2 % (0.1-2.0); Eosinophils # 0.3 K/mm3 (0.0-0.4); Hematocrit 38.1 % (37.0-47.0); Hemoglobin 12.4 g/dL (12.2-16.2); Lymphocytes % 13.9 K/mm3 (10-50); Mean Corpuscular HGB Conc 32.7 g/dL (31.8-35.4); Mean Corpuscular Hemoglobin 29.8 pg (27.0-31.2); Mean Corpuscular Volume 91.2 fl (81-99); Mean Platelet Volume 8.2 fl (7.4-10.4); Monocytes # 0.6 K/mm3 (0.1-1.0); Monocytes % 4.4 % (1.7-9.3); Neutrophils # 11.8 K/mm3 (1.8-7.8); Neutrophils % 79.6 % (37.0-80.0); Platelet Count 256 K/mm3 (142-424); Red Blood Count 4.18 M/mm3 (4.20-5.40); Red Cell Distribution Width 14.6 % (11.5-17.5); White Blood Count 14.8 K/mm3 (4.8-10.8)
--- NOTE | 2017-06-05 06:14 | PC.NURSE ---
PT ALERT AND ORIENTED. SLEPT INTERVALS. IV SECURE AND PATENT. D5W 1/2NS@50/HR. CONTINUES ON IV ABX. NO C/O PAIN OR REQUEST FOR PRN PAIN MEDICATION OF THIS TIME. PT VERY INDEPENDENT, GAIT STEADY. OCCASIONAL HACKY COUGH NOTED, BREATH SOUNDS CLEAR. VSS. TOLERATING FULL LIQUID DIET. PT STABLE. WILL CONTINUE TO MONITOR. REPORT TO BE GIVEN TO ONCOMING NURSE.
--- NOTE | 2017-06-05 07:23 | XR_ITS ---
XR chest portable PICC plac pCXR #1 Ordering Physician: Kiko Pitt MD Patient Age: 77 years: Female HISTORY: ITS.REASON: Check PICC placement TECHNIQUE: AP portable upright chest-at 10 AM COMPARISON :Chest film #1 from ~ 7-10 minutes minutes earlier \ FINDINGS AP chest performed after PICC line was placed. This initial chest film shows that the PICC line loops back upon itself at the left axillary vein region,; with tip at the left subclavian vein beneath the clavicle.. Likely relative restriction at this point were vein passes between clavicle and first rib... Lungs otherwise remain clear with no acute findings. Mild cardiomegaly. Mildly tortuous aorta. Arthritic both shoulders with likely reflect underlying rotator cuff tear a at left shoulder and possibly right.. Old distal right clavicle fracture,/ osseous irregularity at distal tip of right clavicle at AC joint IMPRESSION: PICC line looped back upon itself in the region of the left axillary vein,. With tip left subclavian veinbeneath mid left clavicle lungs clear no active disease. Mild cardiomegaly again noted .
--- NOTE | 2017-06-05 07:24 | HMH.DCSUM ---
General - General Admission date: 06/02/17 Discharge date: 06/05/17 HPI HPI: 87-year-old female presented to the emergency department with lower abdominal pain present for a little over 24 hours. Patient had actually been seen in the office today by 1 of my nurse practitioners with complaints of severe lower quadrant abdominal pain. In the office patient had an elevated white blood cell count to 22,000. She was sent to the emergency department for additional workup and evaluation. In the ER patient's workup revealed elevated white blood cell count with an abnormal CT scan suggestive of a diverticular abscess versus early diverticulitis. Patient was given Levaquin and Flagyl and admitted. Patient denies fevers or chills over the last 24 hours. She denies any history of prior diverticulosis or diverticulitis and does not believe she has ever had a colonoscopy. Objective Vital signs: Temp Pulse Resp BP Pulse Ox 98.1 F 76 76 H 125/79 98 06/05/17 04:00 06/05/17 04:00 06/05/17 04:00 06/05/17 04:00 06/05/17 04:00 Hospital Course Hospital Course: Patient was admitted and placed on IV Levaquin and Flagyl. CT scan with IV and oral contrast was performed which showed a 4 x 2 cm left-sided pelvic abscess along with diverticulitis and a focal perforation. Patient was admitted on clear liquids. Over the 72 hour hospitalization patient's abdominal pain gradually improved each day and her diet was able to be advanced to full liquids. On the day of discharge patient was pain-free. Dr. Junior of the surgical service had been following along and recommended IV antibiotics for another week and repeat CT scan at that time. Patient was ambulating, tolerating her diet and had significant improvement in pain. PICC line was inserted and patient was transitioned to IV Invanz 1 g daily. She will stay on this regimen for the next week and CT scan will be repeated as instructed by Dr. Junior. Results Labs on day of discharge: Labs from last 24 hours 06/05/17 04:10 WBC 14.8 H RBC 4.18 L Hgb 12.4 Hct 38.1 MCV 91.2 MCH 29.8 MCHC 32.7 RDW 14.6 Plt Count 256 MPV 8.2 Neut % (Auto) 79.6 Lymph % (Auto) 13.9 Ellis % (Auto) 4.4 Eos % (Auto) 2.0 Baso % (Auto) 0.2 Neut # (Auto) 11.8 H Lymph # (Auto) 2.0 Ellis # (Auto) 0.6 Eos # (Auto) 0.3 Baso # (Auto) 0.0 - Imaging and Cardiology CT scan - abdomen Status: final report DS: Diagnosis - Discharge Diagnosis (1) Diverticulitis of sigmoid colon Status: Acute (2) Colonic diverticular abscess Status: Acute Meds Home Medications Medication Instructions Recorded Confirmed Type Amlodipine Besylate [Amlodipine 5 mg PO DAILY 06/02/17 06/02/17 History 10mg Tab] Baclofen [Lioresal 10mg tablet] 10 mg PO TID 06/02/17 06/02/17 History Benzonatate [Benzonatate 100mg 100 mg PO TID 06/02/17 06/02/17 History cap] Calcium Carbonate/Vitamin D3 1 each PO DAILY 06/02/17 06/02/17 History [Caltrate 600 + D Soft Chew Tab] Cholecalciferol (Vitamin D3) 1,000 unit PO DAILY 06/02/17 06/02/17 History [Vitamin D3 1,000 Unit Cap] Donepezil HCl [Aricept 10mg tablet] 10 mg PO DAILY 06/02/17 06/02/17 History Duloxetine HCl [Cymbalta] 60 mg PO DAILY 06/02/17 06/02/17 History Esomeprazole Magnesium [Nexium] 40 mg PO DAILY 06/02/17 06/02/17 History Folic Acid 0.4 mg PO DAILY 06/02/17 06/02/17 History Metoprolol Succinate [Toprol XL 50 mg PO DAILY 06/02/17 06/02/17 History 50mg Tablet] Prednisone 20mg Tab 20 mg PO BID 06/02/17 06/02/17 History Ropinirole HCl 1 - 2 mg PO DAILY 06/02/17 06/02/17 History Simvastatin 20 mg PO DAILY 06/02/17 06/02/17 History Zolpidem Tartrate [Ambien 10mg 5 - 10 mg PO HS 06/02/17 06/02/17 History tablet] levoFLOXacin [Levaquin 500mg 500 mg PO DAILY 06/02/17 06/02/17 History tab] metHOTREXate sodium [metHOTREXate 7.5 mg PO WEEKLY 06/02/17 06/02/17 History 2.5mg Tablet] Aller
--- NOTE | 2017-06-05 07:25 | PC.NURSE ---
REPORT GIVEN TO Leno TRAN W/C
--- NOTE | 2017-06-05 07:27 | P.DS_ITS ---
General - General Admission date: 06/02/17 Discharge date: 06/05/17 HPI HPI: 87-year-old female presented to the emergency department with lower abdominal pain present for a little over 24 hours. Patient had actually been seen in the office today by 1 of my nurse practitioners with complaints of severe lower quadrant abdominal pain. In the office patient had an elevated white blood cell count to 22,000. She was sent to the emergency department for additional workup and evaluation. In the ER patient's workup revealed elevated white blood cell count with an abnormal CT scan suggestive of a diverticular abscess versus early diverticulitis. Patient was given Levaquin and Flagyl and admitted. Patient denies fevers or chills over the last 24 hours. She denies any history of prior diverticulosis or diverticulitis and does not believe she has ever had a colonoscopy. Objective Vital signs: Temp Pulse Resp BP Pulse Ox 98.1 F 76 76 H 125/79 98 06/05/17 04:00 06/05/17 04:00 06/05/17 04:00 06/05/17 04:00 06/05/17 04:00 Hospital Course Hospital Course: Patient was admitted and placed on IV Levaquin and Flagyl. CT scan with IV and oral contrast was performed which showed a 4 x 2 cm left-sided pelvic abscess along with diverticulitis and a focal perforation. Patient was admitted on clear liquids. Over the 72 hour hospitalization patient's abdominal pain gradually improved each day and her diet was able to be advanced to full liquids. On the day of discharge patient was pain-free. Dr. Junior of the surgical service had been following along and recommended IV antibiotics for another week and repeat CT scan at that time. Patient was ambulating, tolerating her diet and had significant improvement in pain. PICC line was inserted and patient was transitioned to IV Invanz 1 g daily. She will stay on this regimen for the next week and CT scan will be repeated as instructed by Dr. Junior. Results Labs on day of discharge: Labs from last 24 hours 06/05/17 04:10 WBC 14.8 H RBC 4.18 L Hgb 12.4 Hct 38.1 MCV 91.2 MCH 29.8 MCHC 32.7 RDW 14.6 Plt Count 256 MPV 8.2 Neut % (Auto) 79.6 Lymph % (Auto) 13.9 [place] % (Auto) 4.4 Eos % (Auto) 2.0 Baso % (Auto) 0.2 Neut # (Auto) 11.8 H Lymph # (Auto) 2.0 [place] # (Auto) 0.6 Eos # (Auto) 0.3 Baso # (Auto) 0.0 - Imaging and Cardiology CT scan - abdomen Status: final report DS: Diagnosis - Discharge Diagnosis (1) Diverticulitis of sigmoid colon Status: Acute (2) Colonic diverticular abscess Status: Acute Meds Home Medications Medication Instructions Recorded Confirmed Type Amlodipine Besylate [Amlodipine 5 mg PO DAILY 06/02/17 06/02/17 History 10mg Tab] Baclofen [Lioresal 10mg tablet] 10 mg PO TID 06/02/17 06/02/17 History Benzonatate [Benzonatate 100mg 100 mg PO TID 06/02/17 06/02/17 History cap] Calcium Carbonate/Vitamin D3 1 each PO DAILY 06/02/17 06/02/17 History [Caltrate 600 + D Soft Chew Tab] Cholecalciferol (Vitamin D3) 1,000 unit PO DAILY 06/02/17 06/02/17 History [Vitamin D3 1,000 Unit Cap] Donepezil HCl [Aricept 10mg tablet] 10 mg PO DAILY 06/02/17 06/02/17 History Duloxetine HCl [Cymbalta] 60 mg PO DAILY 01
--- NOTE | 2017-06-05 07:50 | P.PN_ITS ---
Subjective Patient reports: feels better Exam Vital signs and Labs for Last 24 Hours: Temp Pulse Resp BP Pulse Ox 98.1 F 76 76 H 125/79 98 06/05/17 04:00 06/05/17 04:00 06/05/17 04:00 06/05/17 04:00 06/05/17 04:00 Laboratory Results - last 24 hr 06/05/17 04:10: WBC 14.8 H, RBC 4.18 L, Hgb 12.4, Hct 38.1, MCV 91.2, MCH 29.8, MCHC 32.7, RDW 14.6, Plt Count 256, MPV 8.2, Neut % (Auto) 79.6, Lymph % (Auto) 13.9, [place] % (Auto) 4.4, Eos % (Auto) 2.0, Baso % (Auto) 0.2, Neut # (Auto) 11.8 H, Lymph # (Auto) 2.0, [place] # (Auto) 0.6, Eos # (Auto) 0.3, Baso # (Auto) 0.0 I & O for Last 24 hours: Intake & Output 06/02/17 06/03/17 06/04/17 06/05/17 11:59 11:59 11:59 11:59 Intake Total 2499 / 2499 3768 / 3768 3275 / 3275 Output Total 900 / 900 Balance 2499 / 2499 3768 / 3768 2375 / 2375 Weight 173 lb 5 oz - Constitutional no acute distress - *Routine Respiratory Exam Absent: respiratory distress - *Routine Cardiovascular Exam Comments: unchanged - *Routine Abdominal Exam Present: soft Comments: less TTP Progress Note: A&P (1) Diverticulitis of sigmoid colon Status: Acute Assessment and plan: Improving Likely d/c home with IV abx and close outpatient follow-up Current Visit: Yes
[2017-06-05 08:49] VITALS: BP 141/79; PULSE 75; RESP 18; TEMP 37.1; O2SAT 100
--- NOTE | 2017-06-05 09:38 | PC.NURSE ---
PICC LINE RN NURSE IS NOW IN WITH THE PATIENT TO START HER LINE.
[2017-06-05 09:39] VITALS: RESP 18
--- NOTE | 2017-06-05 09:49 | P.PN_ITS ---
Internal Medicine - PN: Subj *Date: 06/05/17 *Time: 09:49 Exam Vital signs and Labs for Last 24 Hours: Temp Pulse Resp BP Pulse Ox 98.7 F 75 18 141/79 100 06/05/17 08:49 06/05/17 08:49 06/05/17 09:39 06/05/17 08:49 06/05/17 08:49 Laboratory Results - last 24 hr 06/05/17 04:10: WBC 14.8 H, RBC 4.18 L, Hgb 12.4, Hct 38.1, MCV 91.2, MCH 29.8, MCHC 32.7, RDW 14.6, Plt Count 256, MPV 8.2, Neut % (Auto) 79.6, Lymph % (Auto) 13.9, [place] % (Auto) 4.4, Eos % (Auto) 2.0, Baso % (Auto) 0.2, Neut # (Auto) 11.8 H, Lymph # (Auto) 2.0, [place] # (Auto) 0.6, Eos # (Auto) 0.3, Baso # (Auto) 0.0 I & O for Last 24 hours: Intake & Output 06/02/17 06/03/17 06/04/17 06/05/17 23:59 23:59 23:59 23:59 Intake Total 1200 / 1200 3472 / 3472 4160 / 4160 950 / 950 Output Total 900 / 900 Balance 1200 / 1200 3472 / 3472 3260 / 3260 950 / 950 Weight 78.613 kg 78.613 kg The patient's infection will respond to the chosen ABx?: Yes (GOING HOME ON INVANZ) Is the patient receiving the right drug, dose, and route?: Yes Could a more targeted ABx be ordered?: No
--- NOTE | 2017-06-05 10:12 | XR_ITS ---
XR chest portable PICC plac pCXR #2. Ordering Physician: Kiko Pitt MD Patient Age: 77 years: Female HISTORY: ITS.REASON: PICC placement TECHNIQUE: AP portable upright chest-at 2 10:15 AM COMPARISON :Chest film #1 from ~ 7-10 minutes minutes earlier FINDINGS This repeat chest film after PICC line nurse repositiond the catheter. PICC line continues to loop at back upon itself at the left axillary vein,; with tip at the left subclavian vein beneath the clavicle. Just. Likely restriction at this point were pain passes between clavicle and first rib... Lungs otherwise remain clear with no acute findings. Mild cardiomegaly. Mildly tortuous aorta. Arthritic changes both shoulders with probable underlying rotator cuff tear a left and possibly right shoulder. Old distal right clavicle fracture,/ osseous irregularity at distal right clavicle and AC joint IMPRESSION: PICC line continues loop at the left axillary vein. With tip behind the clavicle at left subclavian vein lungs clear no active disease. Mild cardiomegaly again noted .
--- NOTE | 2017-06-05 10:38 | FL_ITS ---
XR chest AP, FL guided central line placemt PA chest #3. Today Following PICC line manipulation under fluoroscopy by Dr. Lance Ordering Physician: Kiko Pitt MD Patient Age: 77 years: Female HISTORY: ITS.REASON: UPPER BACK PAIN Unsuccessful PICC line placement on the floor now requiring fluoroscopic guidance TECHNIQUE:: 1. Fluoroscopic imaging with repositioning of PICC line catheter-byDr. Lance 2. Upright PA chest performed at 11:23 AM COMPARISON CXR:Studies from earlier today ======== FLUOROSCOPIC REDIRECTED, PLACEMENT PICC LINE-by radiologist Dr. Lance After unsuccessful PICC line placement positioning on the second floor patient was brought to radiology for fluoroscopic guidance were PICC line placement. Patient was brought to x-ray in order to reposition the central line. Using sterile technique this PICC line was pulled back back repositioned under fluoroscopy, and then was advanced under fluoroscopy by by rotating and twist catheter slightly in order to advance it into SVC under fluoroscopy by Dr. Lance.. ======== PA CXR: The final image shows the tip is at the SVC near the cavoatrial junction as seen on is seen and documented on this final chest #3. film from today. Otherwise noteBorderline cardiomegaly. Lungs otherwise appear clear with no active disease. Old right rib fractures again noted. Atelectatic changes of both shoulders. IMPRESSION: 1. Under fluoroscopic guidance PICC line was pulled back and then readvanced by Dr. Lance, with twisting such tip was advanced to the SVC. The tip the PICC line satisfactory position and SVC above cavoatrial junction as seen on the final film . 2. No active disease in the chest otherwise more likely megaly
--- NOTE | 2017-06-05 10:50 | PC.NURSE ---
KAREN FROM SURGERY TOOK THE PATIENT DOWN TO OUTPATIENT SURGERY TO HAVE HER PICC LINE PLACED. SHE HAD TRIED AT THE BEDSIDE AND IT WAS NOT IN CORRECT PLACEMENT ACCORDING TO XRAY. ANOTHER ATTEMPT FOR PLACEMENT WILL BE DONE. PATIENT NOW OFF THE FLOOR FOR THIS PROCEDURE.
--- NOTE | 2017-06-05 11:32 | PC.NURSE ---
PATIENT NOW BACK IN HER ROOM, PICC LINE WAS SUCCESSFULLY PLACED. PATIENT TOLERATED PROCEDURE WELL. HER IV ANTIBIOTICS WILL FINISH INFUSING THEN WILL BE DISCHARGED FOR HOME.
--- NOTE | 2017-06-05 12:33 | PC.NURSE ---
PICC WAS PLACED AT BEDSIDE; AFTER FIRST XRAY THE PICC WAS CURLED UPON ITSELF; MANIPULATED THE PICC AT BEDSIDE; DID ANOTHER XRAY AND THE PICC WAS STILL CURLED; PICC WAS SECURELY LEFT IN PLACE AND PT WAS TAKEN TO [facility] AND WITH THE ASSISTANCE OF DON THE PICC WAS MANIPULATED IN THE RIGHT POSITION; PT TOLERATING WITHOUT ANY PROBLEMS.
--- NOTE | 2017-06-05 12:38 | PC.NURSE ---
IV ANTIBIOTICS ARE NOW FINISHED, PERIPHERAL SITE REMOVED, PICC LINE IN PLACE. PATIENT IS NOW GETTING DRESSED FOR HOME.
--- NOTE | 2017-06-05 13:27 | SW/DCPLANNER ---
RECEIVED REFERRAL FOR THIS PATIENT FOR IV INVANZ 1 GRAM X 10 DAYS.....PATIENT HAS ELECTED TO DO OUT PATIENT AND COME BACK TO [facility] FOR THIS TO BE DONE...PATIENT DISCHARING TO HOME TODAY....
== END 2017-06-05 12:58 | disposition home health service (06) | DRG 392 ==
LOC: ER 14:43 → 2ND 15:23
PROVIDERS: Admitting Provider Family Medicine; Emergency Provider Emergency Medicine; Family Provider Family Medicine; PCP Family Medicine; Visit Provider Family Medicine
DX: K57.20 Diverticulitis of large intestine with perforation and abscess without bleeding (principal); I10 Essential (primary) hypertension
CPT/HCPCS: 36569; 36415; 71045; 71046; 74176; 74177; 77001; 80048; 80053; 81001; 83605; 85007; 85025; 87040; 87070; 87086; 87205; 87275; 87276; 96366; 96367; 99282; 99283; C1751; J1956; J2405; Q9967

== ENCOUNTER 2017-06-06 10:00 | Outpatient (CLI) | payer MEDICARE, OTHER, SELFPAY ==
[2017-06-06 10:45] VITALS: BP 137/74; PULSE 68; RESP 20; TEMP 36.2; O2SAT 98
== END 2017-06-06 10:55 | disposition home or self-care (01) ==
LOC: INF 15:12
PROVIDERS: Family Provider Family Medicine; PCP Family Medicine; Visit Provider Family Medicine
DX: K57.92 Diverticulitis of intestine, part unspecified, without perforation or abscess without bleeding (principal)
CPT/HCPCS: 96365; J1335

== ENCOUNTER 2017-06-07 10:50 | Outpatient (CLI) | payer MEDICARE, OTHER, SELFPAY ==
[2017-06-07 11:11] VITALS: BMI 30.9
[2017-06-07 12:13] VITALS: BP 135/67; RESP 18; TEMP 37.1
== END 2017-06-07 12:10 | disposition home or self-care (01) ==
LOC: INF 10:52
PROVIDERS: Family Provider Family Medicine; PCP Family Medicine; Visit Provider Family Medicine
DX: K57.20 Diverticulitis of large intestine with perforation and abscess without bleeding (principal)
CPT/HCPCS: 96365; J1335

== ENCOUNTER 2017-06-08 10:15 | Outpatient (CLI) | payer MEDICARE, OTHER, SELFPAY ==
[2017-06-08 10:30] VITALS: BMI 30.9
[2017-06-08 10:55] VITALS: BMI 30.9
[2017-06-08 11:00] VITALS: BP 126/62; PULSE 60; RESP 16; TEMP 36.4
[2017-06-08 11:30] VITALS: BP 136/67; PULSE 76; RESP 16
[2017-06-08 11:40] VITALS: BP 138/70; PULSE 70; RESP 18
== END 2017-06-08 12:00 | disposition home or self-care (01) ==
LOC: INF 12:24
PROVIDERS: PCP Family Medicine; Visit Provider Family Medicine
DX: K57.20 Diverticulitis of large intestine with perforation and abscess without bleeding (principal)
CPT/HCPCS: 96365; J1335

== ENCOUNTER 2017-06-09 12:40 | Outpatient (CLI) | payer MEDICARE, OTHER, SELFPAY ==
[2017-06-09 13:32] VITALS: BP 123/78; PULSE 68; RESP 20; TEMP 36.4; O2SAT 95
[2017-06-09 14:00] VITALS: BP 122/78; PULSE 66; RESP 20; TEMP 37.1; O2SAT 95
[2017-06-09 14:27] VITALS: BMI 30.9
[2017-06-09 14:42] LABS: Blood Urea Nitrogen 12 mg/dL (7-18); Creatinine Clearance Estimated 57 mL/min (0-300); Creatinine,Serum 0.74 mg/dL (0.55-1.02); Estimated Glomerular Filt Rate 76 ml/min (>60); GFR (African American) 92 ML/MIN (>60)
== END 2017-06-09 14:00 | disposition home or self-care (01) ==
LOC: INF 15:19
PROVIDERS: Family Provider Family Medicine; PCP Family Medicine; Visit Provider Family Medicine
DX: K57.20 Diverticulitis of large intestine with perforation and abscess without bleeding (principal)
CPT/HCPCS: 82565; 84520; 96365; J1335

== ENCOUNTER → 2017-06-10 11:44 | Outpatient (CLI) | payer MEDICARE, OTHER, SELFPAY ==
[2017-06-10 15:08] LABS: Adenovirus F 40/41, stool Not Detected (NotDetected); Astrovirus Not Detected (NotDetected); Campylobacter Not Detected (NotDetected); Clostridium Difficile A/B, PCR Not Detected (NotDetected); Cryptosporidium Not Detected (NotDetected); Cyclospora Cayetanesis Not Detected (NotDetected); Entamoeba histolytica Not Detected (NotDetected); Enteroaggregative E coli Not Detected (NotDetected); Enteropathogenic E coli Not Detected (NotDetected); Enterotoxigenic E coli Not Detected (NotDetected); Giardia lamblia Not Detected (NotDetected); Norovirus Not Detected (NotDetected); Plesimonas Shigalloides, PCR Not Detected (NotDetected); Rotavirus A Not Detected (NotDetected); Salmonella, PCR Not Detected (NotDetected); Sapovirus Not Detected (NotDetected); Shiga-like toxin E coli Not Detected (NotDetected); Shigella Enterovasive E coli Not Detected (NotDetected); Vibrio Cholerae Not Detected (NotDetected); Vibrio, PCR Not Detected (NotDetected); Yersinia Entercolitica, PCR Not Detected (NotDetected)
== END ==
LOC: RAD 06-12 09:23 → LAB 06-12 17:30
PROVIDERS: Family Provider Family Medicine; PCP Family Medicine; Visit Provider Family Medicine
DX: K52.1 Toxic gastroenteritis and colitis (principal); K57.20 Diverticulitis of large intestine with perforation and abscess without bleeding
CPT/HCPCS: 87507

== ENCOUNTER → 2017-06-10 12:15 | Outpatient (CLI) | payer MEDICARE, OTHER, SELFPAY ==
[2017-06-10 12:15] VITALS: BP 127/70; PULSE 70; RESP 20; TEMP 36.6; O2SAT 96
--- NOTE | 2017-06-10 16:57 | PC.NURSE ---
77 YEAR OLD WHITE FEMALE PRESENTS TO THE HOSPITAL FOR AN IV INFUSION OF INVANZ 1 GRAM PER PICC LINE. PATIENT EDUCATION WAS PROVIDED AND DAUGHTER AND PATIENT VERBALIZED UNDERSTANDING. IV INFUSED WITHOUT DIFFICULTY. PATIENT TOLERATED THE PROCEDURE WELL. PATIENT DENIES PAIN OR DISCOMFORT. IV MEDICATION MIXED BY PHARMACY. RONN MOSCOSO, MSN,RN
== END ==
PROVIDERS: Family Provider Family Medicine; PCP Family Medicine; Visit Provider Family Medicine
DX: K57.20 Diverticulitis of large intestine with perforation and abscess without bleeding (principal)
CPT/HCPCS: 87507; 96365; J1335

== ENCOUNTER → 2017-06-11 14:01 | Outpatient (CLI) | payer MEDICARE, OTHER, SELFPAY ==
[2017-06-11 14:20] VITALS: BP 116/64; PULSE 67; RESP 20; TEMP 36.7; O2SAT 96; BMI 31.1
== END ==
PROVIDERS: Family Provider Family Medicine; PCP Family Medicine; Visit Provider Family Medicine
DX: K57.20 Diverticulitis of large intestine with perforation and abscess without bleeding (principal)
CPT/HCPCS: 96365; G0463; J1335

== ENCOUNTER 2017-06-12 09:00 | Outpatient (CLI) | payer MEDICARE, OTHER, SELFPAY ==
--- NOTE | 2017-06-12 09:20 | CT_ITS ---
CT abdomen pelvis w con Ordering Physician: Kiko Pitt MD Patient Age: 77 years: Female HISTORY: ITS.REASON: COLONIC DIVERTICULAR ABSCESS 1. Dramatic to the 12 nodes only gone 40 minutes sigmoid film this CT noted since the ER as a stat 6 [facility] faxed TECHNIQUE: Helical CT scanning performed through abdomen and pelvis following 75 cc [id number]. Axial and coronal reconstructions on CT workstation. Oral contrast was also administered with the timing of such Indicated COMPARISON :Previous CT abdomen pelvis 06/02/2017 both pre and postcontrast studies FINDINGS There is been overall improvement since previous study 06/02/2017. . Overall s Less inflammation is seen throughout the lower pelvis. Except to note more diffuse wall thickening of the wall the distal sigmoid colon. The fluid collection previously described is clearly overall smaller the distal Thicker enhancing maturing duque evident. At this modest abscess collection This appears to be a broad U shaped fluid/abscess collection-with limb extending along left pelvic sidewall as well when extending to the right posterior pelvis, right of midline.: . The elongated limb to the left, containing fluid and gas an air-fluid level.,. It appears to extend from the initial inflamed diverticulum at the mid left sigmoid colon, then extends along the left pelvic sidewall just adjacent to the the left iliac vessels.. It Continuing to the dependent pelvis passing inferior to the thickened distal sigmoid colon. Overall Decreased gas and fluid- with smaller Air-fluid level is seen here today.... . It is best seen in its entirety on sagittal image 60 where it does measure up to 6 cm length x 17 mm-but is clearly smaller than previous study.. The other limb of the this U shaped fluid collection extends beneath the sigmoid colon continues to the right posterior pelvis.. & Measures up to 5 cm x 2.3 cm. On axial image 77. It is clearly smaller with surrounding maturing thickened enhancing wall of this modest abscess collection (Previously this same fluid collection measured 6 cm x 4 cm and is clearly decreased in size). The likely inciting inflamed diverticulum seen extending to the left of the mid sigmoid colon as shown improvement as well.- Less thickened , smaller with less gas associated. Axial image 77-79. .. Generous stool stool is seen at rectum. Prominent stool is seen at right and transverse colon moderate stool descending colon sigmoid. Appearance suggests [id number] constipation. Is patient on pain medication? Oral Contrast is seen throughout the stool at large bowel.. Although this may reflect oral contrast administered today it does extend throughout the entire large bowel is suggested was administered several hours prior to the scan. Oral contrast oh seen information was not included technologist Lung bases appear stable. Calcified granuloma posterior right base. Cholecystectomy with stable intrahepatic biliary ductal dilatation likely reflecting such. The common duct appears dilated up to 12 mm as previously noted Liver. No focal lesions. Pancreas unremarkable Kidneys. Unremarkable.. Previously fullness of both collecting systems has regressed. Diffuse calcified small caliber lower abdominal aorta. Osseous Degenerative disc changes most evident at lower L-spine is stable IMPRESSION 1.. Overall improvement.: ... Decreased inflammation throughout pelvis from the diverticulitis, with Decreased size of the abscess fluid collection. ... Only note slight interval increased wall thickening throughout distal sigmoid colon adjacent to abscess collection 2. Decreased size of this abscess fluid collection at pelvis clearly evident, with interval wall thickening & maturation.. This broad U shaped fluid collec
--- NOTE | 2017-06-12 09:39 | HMH.ITSHM ---
SEE PRIOR LIST
[2017-06-12 10:12] VITALS: BP 144/98; PULSE 68; RESP 20; TEMP 36.6; O2SAT 97
[2017-06-12 10:27] VITALS: BP 141/94; PULSE 69; RESP 20; O2SAT 99
[2017-06-12 10:48] VITALS: BP 140/89; PULSE 70; RESP 20; O2SAT 97
== END 2017-06-12 10:50 | disposition home or self-care (01) ==
PROVIDERS: PCP Family Medicine; Visit Provider Family Medicine
DX: K57.20 Diverticulitis of large intestine with perforation and abscess without bleeding (principal)
CPT/HCPCS: 74177; 96365; J1335; Q9967

== ENCOUNTER 2017-06-13 12:00 | Outpatient (CLI) | payer MEDICARE, SELFPAY ==
[2017-06-13 12:35] VITALS: BP 135/78; PULSE 88; RESP 20; TEMP 36.3; O2SAT 97
[2017-06-13 13:10] VITALS: BP 128/70; PULSE 66; RESP 20; TEMP 36.6; O2SAT 98
== END 2017-06-13 13:25 | disposition home or self-care (01) ==
LOC: INF 16:00
PROVIDERS: Family Provider Family Medicine; PCP Family Medicine; Visit Provider Family Medicine
DX: K57.20 Diverticulitis of large intestine with perforation and abscess without bleeding (principal)
CPT/HCPCS: 96365; J1335

== ENCOUNTER 2017-06-14 10:25 | Outpatient (CLI) | payer MEDICARE, SELFPAY ==
[2017-06-14 11:20] VITALS: BP 134/70; PULSE 69; RESP 18; TEMP 37.1; O2SAT 97
== END 2017-06-14 11:25 | disposition home or self-care (01) ==
LOC: INF 10:29
PROVIDERS: Family Provider Family Medicine; PCP Family Medicine; Visit Provider Family Medicine
DX: K57.20 Diverticulitis of large intestine with perforation and abscess without bleeding (principal)
CPT/HCPCS: 96365; J1335

== ENCOUNTER 2017-06-15 12:55 | Outpatient (CLI) | payer MEDICARE, SELFPAY ==
[2017-06-15 13:36] VITALS: BP 132/77; PULSE 76; RESP 20; TEMP 36.5; O2SAT 98
[2017-06-15 13:51] VITALS: BP 131/71; PULSE 79; RESP 20; O2SAT 99
[2017-06-15 14:15] VITALS: BP 128/72; PULSE 71; RESP 20; TEMP 36.5; O2SAT 98
== END 2017-06-15 14:20 | disposition home or self-care (01) ==
LOC: INF 14:26
PROVIDERS: Visit Provider Family Medicine
DX: K57.20 Diverticulitis of large intestine with perforation and abscess without bleeding (principal)
CPT/HCPCS: 96365; J1335

== ENCOUNTER 2017-06-16 13:40 | Outpatient (CLI) | payer MEDICARE, SELFPAY ==
[2017-06-16 14:10] VITALS: BP 129/75; PULSE 69; RESP 18; TEMP 37.1; O2SAT 94
[2017-06-16 14:50] VITALS: BP 129/76; PULSE 59; RESP 18
--- NOTE | 2017-06-16 17:03 | PC.NURSE ---
1410 - NAWAF STARTED INFUSING AT THIS TIME
== END 2017-06-16 15:10 | disposition home or self-care (01) ==
LOC: INF 16:46
PROVIDERS: Family Provider Family Medicine; PCP Family Medicine; Visit Provider Family Medicine
DX: K57.20 Diverticulitis of large intestine with perforation and abscess without bleeding (principal)
CPT/HCPCS: 96365; J1335

== ENCOUNTER 2017-06-17 11:34 | Outpatient (CLI) | payer MEDICARE, SELFPAY ==
[2017-06-17 11:59] VITALS: BP 118/71; PULSE 73; RESP 16; TEMP 36.8; O2SAT 96; BMI 31.2
[2017-06-17 13:17] VITALS: BP 124/69; PULSE 67; RESP 16; TEMP 36.9; O2SAT 94
== END 2017-06-17 13:00 | disposition home or self-care (01) ==
LOC: INF 11:35
PROVIDERS: Family Provider Family Medicine; PCP Family Medicine; Visit Provider Family Medicine
DX: K57.20 Diverticulitis of large intestine with perforation and abscess without bleeding (principal)
CPT/HCPCS: 96365; J1335

== ENCOUNTER 2017-06-18 14:48 | Outpatient (CLI) | payer MEDICARE, SELFPAY ==
[2017-06-18 15:19] VITALS: BMI 31.1
[2017-06-18 15:24] VITALS: BP 138/75; PULSE 73; RESP 20; TEMP 36.6; O2SAT 97
[2017-06-18 15:53] VITALS: BP 129/69; PULSE 65; RESP 20; TEMP 36.4; O2SAT 97
== END 2017-06-18 15:54 | disposition home or self-care (01) ==
LOC: INF 14:48
PROVIDERS: Family Provider Family Medicine; PCP Family Medicine; Visit Provider Family Medicine
DX: K57.20 Diverticulitis of large intestine with perforation and abscess without bleeding (principal)
CPT/HCPCS: 96365; J1335

== ENCOUNTER 2017-06-19 10:10 | Outpatient (CLI) | payer MEDICARE, SELFPAY ==
[2017-06-19 10:40] VITALS: BP 125/66; PULSE 59; RESP 18; TEMP 36.4; O2SAT 93
[2017-06-19 11:10] VITALS: BP 109/64; PULSE 59; RESP 18
--- NOTE | 2017-06-19 14:51 | PC.NURSE ---
1040 - INVANZ INFUSION STARTED AT THIS TIME.
== END 2017-06-19 11:55 | disposition home or self-care (01) ==
LOC: INF 10:10
PROVIDERS: Family Provider Family Medicine; PCP Family Medicine; Visit Provider Family Medicine
DX: K57.20 Diverticulitis of large intestine with perforation and abscess without bleeding (principal)
CPT/HCPCS: 96365; J1335

== ENCOUNTER 2017-06-20 12:30 | Outpatient (CLI) | payer MEDICARE, SELFPAY ==
[2017-06-20 13:10] VITALS: BP 114/64; PULSE 78; RESP 20; TEMP 36.5; O2SAT 98
[2017-06-20 13:25] VITALS: BP 111/68; PULSE 74; RESP 20; O2SAT 98
[2017-06-20 13:40] VITALS: BP 118/69; PULSE 74; RESP 20; O2SAT 97
[2017-06-20 14:00] VITALS: BP 120/71; PULSE 79; RESP 20; TEMP 36.6; O2SAT 98
== END 2017-06-20 14:05 | disposition home or self-care (01) ==
LOC: INF 12:34
PROVIDERS: Family Provider Family Medicine; PCP Family Medicine; Visit Provider Family Medicine
DX: K57.20 Diverticulitis of large intestine with perforation and abscess without bleeding (principal)
CPT/HCPCS: 96365; J1335

== ENCOUNTER 2017-06-21 13:35 | Outpatient (CLI) | payer MEDICARE, SELFPAY ==
[2017-06-21 13:50] VITALS: BP 137/76; PULSE 66; RESP 18; TEMP 36.7; O2SAT 95
[2017-06-21 14:20] VITALS: BP 148/81; PULSE 69; RESP 18
[2017-06-21 14:50] VITALS: BP 146/79; PULSE 66; RESP 18
== END 2017-06-21 14:50 | disposition home or self-care (01) ==
LOC: INF 13:40
PROVIDERS: Family Provider Family Medicine; PCP Family Medicine; Visit Provider Family Medicine
DX: K57.20 Diverticulitis of large intestine with perforation and abscess without bleeding (principal)
CPT/HCPCS: 96365; J1335

== ENCOUNTER 2017-06-22 13:45 | Outpatient (CLI) | payer MEDICARE, SELFPAY ==
[2017-06-22 14:04] VITALS: BMI 30.9
[2017-06-22 14:05] VITALS: BP 121/76; PULSE 68; RESP 18; TEMP 36.4; O2SAT 98
[2017-06-22 14:20] VITALS: BP 119/74; PULSE 70; RESP 20; TEMP 36.4; O2SAT 98
[2017-06-22 14:35] VITALS: BP 120/77; PULSE 70; RESP 20; O2SAT 97
[2017-06-22 14:50] VITALS: BP 122/79; PULSE 67; RESP 20; O2SAT 98
[2017-06-22 15:00] LABS: Blood Urea Nitrogen 14 mg/dL (7-18); Creatinine Clearance Estimated 57 mL/min (0-300); Creatinine,Serum 0.86 mg/dL (0.55-1.02); Estimated Glomerular Filt Rate 64 ml/min (>60); GFR (African American) 77 ML/MIN (>60)
[2017-06-22 15:09] VITALS: BP 116/78; PULSE 69; RESP 20; TEMP 36.6; O2SAT 98
== END 2017-06-22 15:10 | disposition home or self-care (01) ==
LOC: INF 14:03
PROVIDERS: PCP Family Medicine; Visit Provider Family Medicine
DX: K57.20 Diverticulitis of large intestine with perforation and abscess without bleeding (principal)
CPT/HCPCS: 82565; 84520; 96365; J1335

== ENCOUNTER 2017-06-23 09:32 | Outpatient (CLI) | payer MEDICARE, SELFPAY ==
[2017-06-23 11:00] VITALS: BP 141/77; PULSE 63; RESP 18
[2017-06-23 11:05] VITALS: BMI 30.9
[2017-06-23 11:30] VITALS: BP 130/70; PULSE 59; RESP 18
[2017-06-23 11:45] VITALS: BP 147/80; PULSE 71; RESP 20
--- NOTE | 2017-06-23 11:59 | PC.NURSE ---
PICC FLUSHED WITH NS AFTER INVANZ INFUSED.
== END 2017-06-23 12:05 | disposition home or self-care (01) ==
LOC: RAD 09:32 → INF 10:41
PROVIDERS: Family Provider Family Medicine; PCP Family Medicine; Visit Provider Surgery
DX: K57.20 Diverticulitis of large intestine with perforation and abscess without bleeding (principal)
CPT/HCPCS: 74177; 96365; J1335; Q9967

== ENCOUNTER → 2017-06-24 10:13 | Outpatient (CLI) | payer MEDICARE, SELFPAY ==
[2017-06-24 10:13] VITALS: BP 123/61; PULSE 68; RESP 20; TEMP 36.7; O2SAT 94
[2017-06-24 10:31] VITALS: BMI 30.2
== END ==
PROVIDERS: Family Provider Family Medicine; PCP Family Medicine; Visit Provider Family Medicine
DX: K57.20 Diverticulitis of large intestine with perforation and abscess without bleeding (principal)
CPT/HCPCS: 96365; G0463; J1335

== ENCOUNTER → 2017-06-25 13:39 | Outpatient (CLI) | payer MEDICARE, SELFPAY ==
[2017-06-25 13:39] VITALS: BP 128/60; PULSE 56; RESP 20; TEMP 36.3; O2SAT 94
[2017-06-25 13:56] VITALS: BP 131/60; PULSE 55; RESP 20; TEMP 36.2; O2SAT 94; BMI 31.1
== END ==
PROVIDERS: Family Provider Family Medicine; PCP Family Medicine; Visit Provider Family Medicine
DX: K57.20 Diverticulitis of large intestine with perforation and abscess without bleeding (principal)
CPT/HCPCS: 96365; G0463; J1335

== ENCOUNTER 2017-06-26 12:35 | Outpatient (CLI) | payer MEDICARE, SELFPAY ==
[2017-06-26 12:35] VITALS: BP 129/71; PULSE 64; RESP 18; TEMP 36.6; O2SAT 96
[2017-06-26 12:50] VITALS: BP 127/70; PULSE 69; RESP 18; O2SAT 97
[2017-06-26 13:05] VITALS: BP 126/70; PULSE 68; RESP 18; O2SAT 96
[2017-06-26 13:20] VITALS: BP 119/69; PULSE 67; RESP 18; O2SAT 97
[2017-06-26 13:40] VITALS: BP 121/69; PULSE 69; RESP 18; TEMP 36.6; O2SAT 96
[2017-06-26 13:45] VITALS: BP 125/70; PULSE 69; RESP 18; TEMP 36.6; O2SAT 97
== END 2017-06-26 13:45 | disposition home or self-care (01) ==
LOC: INF 12:38
PROVIDERS: Family Provider Family Medicine; PCP Family Medicine; Visit Provider Family Medicine
DX: K57.20 Diverticulitis of large intestine with perforation and abscess without bleeding (principal)
CPT/HCPCS: 96365; J1335

== ENCOUNTER 2017-06-27 11:24 | Outpatient (CLI) | payer MEDICARE, SELFPAY ==
[2017-06-27 11:45] VITALS: BP 121/74; PULSE 68; RESP 18; TEMP 36.9; O2SAT 95; BMI 31.1
[2017-06-27 12:15] VITALS: BP 134/76; PULSE 66; RESP 18
[2017-06-27 12:45] VITALS: BP 134/76; PULSE 66; RESP 18
== END 2017-06-27 12:45 | disposition home or self-care (01) ==
LOC: INF 11:24
PROVIDERS: Family Provider Family Medicine; PCP Family Medicine; Visit Provider Family Medicine
DX: K57.20 Diverticulitis of large intestine with perforation and abscess without bleeding (principal)
CPT/HCPCS: 96365; J1335

== ENCOUNTER 2017-06-28 10:45 | Outpatient (CLI) | payer MEDICARE, SELFPAY ==
[2017-06-28 11:20] VITALS: BP 146/62; PULSE 54; RESP 20; TEMP 36.6; O2SAT 98
[2017-06-28 11:35] VITALS: BP 131/62; PULSE 62; RESP 20; TEMP 36.4; O2SAT 98
[2017-06-28 11:50] VITALS: BP 145/62; PULSE 53; RESP 20; TEMP 36.4; O2SAT 97
[2017-06-28 12:05] VITALS: BP 142/67; PULSE 64; RESP 20; TEMP 36.5; O2SAT 97
== END 2017-06-28 12:10 | disposition home or self-care (01) ==
LOC: INF 11:44
PROVIDERS: Family Provider Family Medicine; PCP Family Medicine; Visit Provider Family Medicine
DX: Z45.02 Encounter for adjustment and management of automatic implantable cardiac defibrillator (principal)
CPT/HCPCS: 96365; J1335

== ENCOUNTER 2017-06-29 10:40 | Outpatient (CLI) | payer MEDICARE, SELFPAY ==
[2017-06-29 10:52] VITALS: BP 131/72; PULSE 68; RESP 18; TEMP 36.5; O2SAT 97
[2017-06-29 11:17] VITALS: BP 130/76; PULSE 67; RESP 18; O2SAT 97
[2017-06-29 11:32] VITALS: BP 132/77; PULSE 70; RESP 18; O2SAT 96
[2017-06-29 11:55] VITALS: BP 135/69; PULSE 68; RESP 18; TEMP 36.7; O2SAT 97
== END 2017-06-29 11:55 | disposition home or self-care (01) ==
LOC: INF 10:48
PROVIDERS: Family Provider Family Medicine; PCP Family Medicine; Visit Provider Family Medicine
DX: Z79.899 Other long term (current) drug therapy (principal)
CPT/HCPCS: 96365; J1335

== ENCOUNTER 2017-06-30 12:30 | Outpatient (CLI) | payer MEDICARE, SELFPAY ==
[2017-06-30 13:15] VITALS: BP 136/79; PULSE 71; RESP 16
[2017-06-30 13:45] VITALS: BP 138/70; PULSE 67; RESP 18
== END 2017-06-30 14:10 | disposition home or self-care (01) ==
LOC: INF 12:48
PROVIDERS: Family Provider Family Medicine; PCP Family Medicine; Visit Provider Family Medicine
DX: K57.20 Diverticulitis of large intestine with perforation and abscess without bleeding (principal)
CPT/HCPCS: 96365; J1335

== ENCOUNTER → 2017-07-02 13:55 | Outpatient (CLI) | payer MEDICARE, SELFPAY ==
[2017-07-02 14:10] VITALS: BP 140/67; PULSE 56; RESP 18; TEMP 36.4; O2SAT 95
[2017-07-02 15:15] VITALS: BP 115/63; PULSE 59; RESP 18; TEMP 36.8; O2SAT 97
== END ==
PROVIDERS: Family Provider Family Medicine; PCP Family Medicine; Visit Provider Family Medicine
DX: K57.20 Diverticulitis of large intestine with perforation and abscess without bleeding (principal)
CPT/HCPCS: 96365; J1335

== ENCOUNTER 2017-07-03 11:25 | Outpatient (CLI) | payer MEDICARE, SELFPAY ==
[2017-07-03 12:00] VITALS: BP 127/64; PULSE 64; RESP 18; TEMP 36.6; O2SAT 97
[2017-07-03 12:15] VITALS: BP 122/61; PULSE 67; RESP 18; O2SAT 97
[2017-07-03 12:30] VITALS: BP 125/61; PULSE 68; RESP 20; O2SAT 98
[2017-07-03 12:45] VITALS: BP 123/64; PULSE 69; RESP 18; TEMP 36.6; O2SAT 97
== END 2017-07-03 12:50 | disposition home or self-care (01) ==
LOC: INF 13:26
PROVIDERS: Family Provider Family Medicine; PCP Family Medicine; Visit Provider Family Medicine
DX: K57.20 Diverticulitis of large intestine with perforation and abscess without bleeding (principal)
CPT/HCPCS: 96365; J1335

== ENCOUNTER 2017-07-04 12:10 | Outpatient (CLI) | payer MEDICARE, SELFPAY ==
[2017-07-04 12:35] VITALS: BP 141/77; PULSE 61; RESP 18; TEMP 36.4; O2SAT 97
[2017-07-04 12:55] VITALS: BP 133/76; PULSE 68; RESP 18; O2SAT 96
[2017-07-04 13:10] VITALS: BP 135/82; PULSE 62; RESP 18; TEMP 36.6; O2SAT 96
== END 2017-07-04 13:10 | disposition home or self-care (01) ==
LOC: INF 12:10
PROVIDERS: Family Provider Family Medicine; PCP Family Medicine; Visit Provider Family Medicine
DX: K57.20 Diverticulitis of large intestine with perforation and abscess without bleeding (principal)
CPT/HCPCS: 96365; J1335

== ENCOUNTER 2017-07-05 11:35 | Outpatient (CLI) | payer MEDICARE, SELFPAY ==
[2017-07-05 12:00] VITALS: BP 109/57; BP 123/51; PULSE 61; PULSE 64; RESP 18; RESP 20; TEMP 36.5; O2SAT 97; O2SAT 98
[2017-07-05 12:30] VITALS: BP 129/57; PULSE 56; RESP 18; O2SAT 97
[2017-07-05 12:51] VITALS: BP 136/57; PULSE 59; RESP 20; TEMP 36.6; O2SAT 97
== END 2017-07-05 12:55 | disposition home or self-care (01) ==
LOC: INF 12:08
PROVIDERS: Family Provider Family Medicine; PCP Family Medicine; Visit Provider Family Medicine
DX: K57.20 Diverticulitis of large intestine with perforation and abscess without bleeding (principal)
CPT/HCPCS: 96365; J1335

== ENCOUNTER 2017-07-06 11:10 | Outpatient (CLI) | payer MEDICARE, OTHER, SELFPAY ==
[2017-07-06 11:36] VITALS: BP 130/71; PULSE 64; RESP 18; TEMP 36.6; O2SAT 98
[2017-07-06 12:06] VITALS: BP 131/68; PULSE 68; RESP 18; O2SAT 97
[2017-07-06 12:20] VITALS: BP 135/72; PULSE 58; RESP 18; TEMP 36.5; O2SAT 97
== END 2017-07-06 12:30 | disposition home or self-care (01) ==
LOC: INF 11:44
PROVIDERS: Family Provider Family Medicine; PCP Family Medicine; Visit Provider Family Medicine
DX: K57.20 Diverticulitis of large intestine with perforation and abscess without bleeding (principal)
CPT/HCPCS: 96365; J1335

== ENCOUNTER 2017-07-07 11:45 | Outpatient (CLI) | payer MEDICARE, OTHER, SELFPAY ==
[2017-07-07 12:15] VITALS: BP 127/66; PULSE 53; RESP 18; TEMP 36.3
[2017-07-07 12:45] VITALS: BP 124/70; PULSE 58; RESP 16
== END 2017-07-07 13:15 | disposition home or self-care (01) ==
LOC: INF 11:52
PROVIDERS: Family Provider Family Medicine; PCP Family Medicine; Visit Provider Family Medicine
DX: K57.20 Diverticulitis of large intestine with perforation and abscess without bleeding (principal)
CPT/HCPCS: 96365; J1335

== ENCOUNTER → 2017-07-08 13:21 | Outpatient (CLI) | payer MEDICARE, OTHER, SELFPAY ==
[2017-07-08 13:21] VITALS: BP 142/62; PULSE 62; RESP 20; TEMP 36.1; O2SAT 96
[2017-07-08 13:47] VITALS: BP 139/62; PULSE 62; RESP 20; TEMP 36.1; O2SAT 94; BMI 31.1
== END ==
PROVIDERS: Family Provider Family Medicine; PCP Family Medicine; Visit Provider Family Medicine
DX: K57.20 Diverticulitis of large intestine with perforation and abscess without bleeding (principal)
CPT/HCPCS: 96365; G0463; J1335

== ENCOUNTER → 2017-07-09 09:23 | Outpatient (CLI) | payer MEDICARE, OTHER, SELFPAY ==
[2017-07-09 09:47] VITALS: BP 153/66; PULSE 62; RESP 20; TEMP 36.6; O2SAT 95; BMI 31.1
== END ==
PROVIDERS: Family Provider Family Medicine; PCP Family Medicine; Visit Provider Family Medicine
DX: K57.20 Diverticulitis of large intestine with perforation and abscess without bleeding (principal)
CPT/HCPCS: 96365; G0463; J1335

== ENCOUNTER 2017-07-10 13:42 | Outpatient (CLI) | payer MEDICARE, OTHER, SELFPAY ==
[2017-07-10 14:00] VITALS: BP 129/67; PULSE 60; RESP 18; TEMP 37
[2017-07-10 14:30] VITALS: BP 125/64; PULSE 61; RESP 18
[2017-07-10 14:45] VITALS: BP 133/73; PULSE 54; RESP 18
[2017-07-10 15:00] VITALS: BP 125/64; PULSE 61; RESP 16
== END 2017-07-10 15:00 | disposition home or self-care (01) ==
LOC: INF 13:42
PROVIDERS: Family Provider Family Medicine; PCP Family Medicine; Visit Provider Family Medicine
DX: K57.20 Diverticulitis of large intestine with perforation and abscess without bleeding (principal)
CPT/HCPCS: 96365; J1335

== ENCOUNTER 2017-07-11 11:51 | Outpatient (CLI) | payer MEDICARE, OTHER, SELFPAY ==
[2017-07-11 11:50] VITALS: BP 131/81; PULSE 63; RESP 18; TEMP 36.4; O2SAT 98
[2017-07-11 12:14] VITALS: BP 130/79; PULSE 67; RESP 18; O2SAT 96
[2017-07-11 12:30] VITALS: BP 131/71; PULSE 54; RESP 18; O2SAT 96
[2017-07-11 12:55] VITALS: BP 129/80; PULSE 65; RESP 18; O2SAT 97
== END 2017-07-11 13:00 | disposition home or self-care (01) ==
LOC: INF 11:51
PROVIDERS: Family Provider Family Medicine; PCP Family Medicine; Visit Provider Family Medicine
DX: K57.20 Diverticulitis of large intestine with perforation and abscess without bleeding (principal)
CPT/HCPCS: 96365; J1335

== ENCOUNTER 2017-07-12 10:50 | Outpatient (CLI) | payer MEDICARE, OTHER, SELFPAY ==
[2017-07-12 11:17] VITALS: BP 116/70; PULSE 64; RESP 19; TEMP 36.7; O2SAT 96
[2017-07-12 11:32] VITALS: BP 119/79; PULSE 68; RESP 18; TEMP 36.6; O2SAT 97
[2017-07-12 11:47] VITALS: BP 116/40; PULSE 64; RESP 18; TEMP 36.7; O2SAT 96
[2017-07-12 12:15] VITALS: BP 123/66; PULSE 66; RESP 18; TEMP 36.6; O2SAT 97
== END 2017-07-12 12:20 | disposition home or self-care (01) ==
LOC: INF 10:58
PROVIDERS: Family Provider Family Medicine; PCP Family Medicine; Visit Provider Family Medicine
DX: K57.20 Diverticulitis of large intestine with perforation and abscess without bleeding (principal)
CPT/HCPCS: 96365; J1335

== ENCOUNTER → 2017-07-18 11:00 | Outpatient (CLI) | payer MEDICARE, OTHER, SELFPAY ==
[2017-07-18 10:25] VITALS: BP 123/79; PULSE 68; RESP 18; TEMP 36.6; O2SAT 99
--- NOTE | 2017-07-18 15:47 | PC.NURSE ---
07/18/17 1035 Spoke with MD's office regarding pt states that she thinks she might be getting PICC line removed today . No order has been received in chemo/infusion dept for removal of PICC line. Instructed per office staff at Dr. Killian's office to leave PICC intact and pt is to see pt next Tu in followup at which time a decision will be made as to whether to remove PICC.
[2017-07-19 12:28] LABS: Basophils # 0.1 K/mm3 (0-0.2); Basophils % 0.9 % (0.1-2.0); Eosinophils # 0.3 K/mm3 (0.0-0.4); Eosinophils % 4.6 % (0.1-12.0); Hematocrit 39.3 % (37.0-47.0); Hemoglobin 12.4 g/dL (12.2-16.2); Lymphocytes # 2.1 K/mm3 (0.7-4.5); Mean Corpuscular HGB Conc 31.5 g/dL (31.8-35.4); Mean Corpuscular Hemoglobin 29.1 pg (27.0-31.2); Mean Corpuscular Volume 92.6 fl (81-99); Mean Platelet Volume 8.2 fl (7.4-10.4); Monocytes # 0.5 K/mm3 (0.1-1.0); Monocytes % 7.6 % (1.7-9.3); Neutrophils # 3.6 K/mm3 (1.8-7.8); Platelet Count 265 K/mm3 (142-424); Red Blood Count 4.25 M/mm3 (4.20-5.40); Red Cell Distribution Width 14.3 % (11.5-17.5); White Blood Count 6.6 K/mm3 (4.8-10.8)
== END | disposition home or self-care (01) ==
PROVIDERS: Family Provider Family Medicine; PCP Family Medicine; Visit Provider Surgery
DX: K57.20 Diverticulitis of large intestine with perforation and abscess without bleeding (principal); R10.9 Unspecified abdominal pain
CPT/HCPCS: 85025; 96523

== ENCOUNTER 2017-07-19 11:46 | Outpatient (CLI) | payer MEDICARE, OTHER, SELFPAY ==
[2017-07-19 11:48] VITALS: BMI 31.1
--- NOTE | 2017-07-19 12:15 | PC.NURSE ---
pt came here to draw blood from PICC line. PICC Line flushes easily but not blood return noted. Ended up using butterfly needle and peripheral stick CBC per Dr. Killian's order.
== END 2017-07-19 12:10 | disposition home or self-care (01) ==
LOC: INF 11:46
PROVIDERS: Family Provider Family Medicine; PCP Family Medicine; Visit Provider Surgery

== ENCOUNTER → 2017-09-05 09:38 | Outpatient (CLI) | payer MEDICARE, OTHER, SELFPAY ==
--- NOTE | 2017-09-05 09:46 | XR_ITS ---
XR shoulder LT min 2V HISTORY: Left shoulder pain ITS.REASON: ARTHOPATHIC PSORAISI ORDERING PHYSICIAN: Eileen Pagan PATIENT AGE: 77 years FINDINGS: No acute fracture or dislocation. There is moderate subcutaneous acromium stenosis. Mild osteoarthritic change present in the glenohumeral joint. IMPRESSION: Moderate subacromial stenosis which may be seen with rotator cuff tear. MRI may confirm
--- NOTE | 2017-09-05 09:46 | XR_ITS ---
XR shoulder RT min 2V HISTORY: Shoulder pain ITS.REASON: ARTHROPATHIC PSORIASIS ORDERING PHYSICIAN: Eileen Pagan PATIENT AGE: 77 years COMPARISON: 03/12/2013 FINDINGS: There is an old ununited right distal clavicular fracture. The distal fracture fragment is slightly superiorly by approximately 8 mm displaced from the main part of the clavicle and also displaced superiorly from the AC joint. There is severe subacromial stenosis. Osteoarthritic changes are present at the glenohumeral joint with subarticular cystic changes of the humeral head with superior location of the humeral head within the glenoid. There are multiple old right-sided rib fractures. 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 Severe subacromial stenosis which may be seen with rotator cuff tear may be confirmed with MRI if clinically warranted
== END ==
PROVIDERS: PCP Family Medicine; Visit Provider Internal Medicine Rheumatology
DX: L40.50 Arthropathic psoriasis, unspecified (principal)
CPT/HCPCS: 73030

== ENCOUNTER 2017-09-28 09:00 | Outpatient (RCR) | payer MEDICARE, OTHER, SELFPAY | END 2017-09-28 09:01 | disposition home or self-care (01) | LOC: PT 09:00 | PROVIDERS: Family Provider Family Medicine; PCP Family Medicine; Visit Provider Psychiatry & Neurology Neurology | DX: M25.512 Pain in left shoulder (principal) | CPT/HCPCS: 97010; 97014; 97033; 97035; 97110; 97140; 97163; G0283 ==

== ENCOUNTER 2018-06-06 21:23 | Observation (INO) ==
[2018-06-06 22:03] LABS: Basophils % 0.6 % (0.1-2.0); Eosinophils # 0.1 K/mm3 (0.0-0.4); Eosinophils % 1.9 % (0.1-12.0); Hematocrit 40.5 % (37.0-47.0); Hemoglobin 12.6 g/dL (12.2-16.2); Lymphocytes % 31.7 % (10-50); Mean Corpuscular HGB Conc 31.2 g/dL (31.8-35.4); Mean Corpuscular Hemoglobin 27.2 pg (27.0-31.2); Mean Corpuscular Volume 87.4 fl (81-99); Mean Platelet Volume 7.8 fl (7.4-10.4); Monocytes # 0.3 K/mm3 (0.1-1.0); Neutrophils # 3.9 K/mm3 (1.8-7.8); Neutrophils % 61.8 % (37.0-80.0); Platelet Count 310 K/mm3 (142-424); Red Blood Count 4.63 M/mm3 (4.20-5.40); White Blood Count 6.2 K/mm3 (4.8-10.8)
[2018-06-06 22:19] LABS: Alanine Aminotransferase 30 U/L (12-78); Albumin Level 3.8 gm/dL (3.4-5.0); Albumin/Globulin Ratio 0.9 (1.1-1.8); Alkaline Phosphatase 93 U/L (46-116); Anion Gap 13.8 mEq/L (5-15); Aspartate Amino Transferase 23 U/L (15-37); Bilirubin,Total 0.3 mg/dL (0.2-1.0); Blood Urea Nitrogen 19 mg/dL (7-18); C-Reactive Protein 0.3 mg/L (0.0-0.9); Calcium 9.6 mg/dL (8.5-10.1); Carbon Dioxide 27 mmol/L (21.0-32.0); Chloride 98 mmol/L (98-107); Globulin 4.3 gm/dl (1.3-3.2); Glucose 124 mg/dL (74-106); Potassium 3.8 mmoL/L (3.5-5.1); Sodium 135 mmol/L (136-145); Total Protein,Serum 8.1 gm/dL (6.4-8.2)
[2018-06-06 22:26] LABS: Microscopic, Urine URINE MICROSCOPIC (MICROSCOPIC)
[2018-06-06 22:39] LABS: Appearance,Urine CLEAR (Clear); Bilirubin,Urine Negative (Negative); Blood, Urine Negative (Negative); Color,Urine YELLOW (Yellow); Glucose,Urine (UA) Negative (Negative); Ketones,Urine Negative (Negative); Leukocyte Esterase,Urine Negative (Negative); Protein,Urine Negative (Negative); Urobilinogen,Urine 0.2 EU/dl (0.2)
[2018-06-06 22:49] LABS: Bacteria,Urine Trace /lpf; Squamous Epithelial Cell,Urine Occasional #/hpf (0-5)
--- NOTE | 2018-06-06 23:31 | Emergency Department Note ---
ED Disposition Clinical Impression: Vertigo Disposition: Admitted as Observation Condition on Discharge: Good Referrals: Kiko Pitt MD [Primary Care Provider] - - Critical Care Critical Care Time: No Attestation: On 06/06/18, the high probability of a clinically significant, sudden or life threatening deterioration of the following system(s) required my full and direct attention, intervention and personal management. The time I documented below is in addition to time spent performing reported procedures but includes the following listed in this critical care notation. Medical Decision Making - Medical Records Medical records reviewed: Yes: I reviewed the patient's medical records. - Chidi Inquiry Pt receiving controlled substance: No Vital Signs: 06/06/18 21:29 06/06/18 22:24 Temperature 98 F Temperature Source Rectal Pulse Rate [Right] 65 85 Respiratory Rate 20 20 Blood Pressure [Right Arm] 155/95 H 127/86 Blood Pressure Mean [Right Arm] 115 99 02 Sat by Pulse Oximetry 98 98 Oxygen Delivery Method Room Air - Lab Data Lab results reviewed: Yes: I reviewed the patient's lab results. Lab Results 06/06/18 21:50: WBC 6.2, RBC 4.63, Hgb 12.6, Hct 40.5, MCV 87.4, MCH 27.2, MCHC 31.2 L, RDW 16.0, Plt Count 310, MPV 7.8, Neut % (Auto) 61.8, Lymph % (Auto) 31.7, [place] % (Auto) 4.0, Eos % (Auto) 1.9, Baso % (Auto) 0.6, Neut # (Auto) 3.9, Lymph # (Auto) 2.0, [place] # (Auto) 0.3, Eos # (Auto) 0.1, Baso # (Auto) 0.0 06/06/18 21:50: Sodium 135 L, Potassium 3.8, Chloride 98, Carbon Dioxide 27, Anion Gap 13.8, BUN 19 H, Creatinine 0.94, Estimated Creat Clear 56, Estimated GFR 58 L, Est GFR ( Amer) 70, Glucose 124 H, Calcium 9.6, Total Bilirubin 0.3, AST 23, ALT 30, Alkaline Phosphatase 93, Troponin I < 0.02, C-Reactive Protein 0.3, Total Protein 8.1, Albumin 3.8, Globulin 4.3 H, Albumin/Globulin Ratio 0.9 L 06/06/18 21:50: ESR 33 H 06/06/18 22:20: Urine Color Yellow, Urine Appearance Clear, Urine pH 8.0, Ur Specific [place] 1.010, Urine Protein Negative, Urine Glucose (UA) Negative, Urine Ketones Negative, Urine Blood Negative, Urine Nitrate Negative, Urine Bilirubin Negative, Urine Urobilinogen 0.2, Ur Leukocyte Esterase Negative, Urine RBC 3-5, Urine WBC 3-5, Ur Squamous Epith Cells Occasional, Urine Bacteria Trace 06/06/18 22:20: Lactate 1.2 06/06/18 22:20: Influenza Type A Ag Negative, Influenza Type B Ag Negative Result diagrams: 06/06/18 21:50 06/06/18 21:50 Orders (Tests/Meds): ED MEDICATIONS Generic Name Dose Route Start Last Admin Trade Name Freq PRN Reason Stop Dose Admin Sodium Chloride 1,000 mls @ 999 mls/hr 06/06/18 22:00 06/06/18 21:47 Sod Chlor 0.9% 1000ml Bag IV 06/06/18 23:00 999 mls/hr .Q1H1M LOIS Administration Sodium Chloride 10 ml 06/06/18 21:43 Saline Flush 10ml Syringe IV 07/06/18 21:42 NEEDED PRN Maintain IV Site Discontinued Medications Generic Name Dose Route Start Last Admin Trade Name Freq PRN Reason Stop Dose Admin Ondansetron HCl 4 mg 06/06/18 21:46 06/06/18 21:47 Zofran 4mg/2ml Vial IV 06/06/18 21:47 4 mg ONCE ONE Administration ORDERS Category Date Time Status CT head/brain wo con Stat Cat Scan 06/06/18 21:43 Ordered XR chest AP Stat Exams 06/06/18 21:43 Ordered Urinalysis and Microscopic Stat Lab 06/06/18 22:20 Ordered Blood Culture Stat Micro 06/06/18 22:20 Received 12-lead EKG Request [ECG Request by /Jenny] Stat Y 06/06/18 21:43 Ordered - Radiology Data #1 Image(s): Chest Image Reviewed: Yes I reviewed the patient's radiology image Preliminary Findings: Normal/NAD - CT Data CT Scan: Head Time Received: 23:[address] Reviewed: Yes: I have viewed the radiologist's interpretation Preliminary Findings: Normal/NAD - ECG Data Tracing #1 Normal Sinus Rhythm: Yes Ischemic changes: non-specific ST-T wave changes Dizzy HPI - General Chief Complaint: Weakness Stated Complaint: Nausa,can't stant up Time Seen by Provider: 06/06/18 23:28 Mode of Arrival: Ambulatory Source of Information: Patient, Relative, Medical Record Limitations: No Limitations Description of Symptoms (Recalled from ER Triage Doc. by RN): Pt c/o dizziness, being diaphoretic, weakness, and nausea and stating she "just feels sick all over" for the last hour. - History of Present Illness HPI Narrative: has not felt well for the last week but tonight has dizzyness ekta with change in position - no fever or chest pain and no trauma - pt unable to ambulate and this is reported as sig change as she usually ambulates and she drives - no focal changes and no speech sx MD complaint: dizziness Onset (ago): hour(s) Timing: sudden onset Description: lightheadedness History of similar episodes: No History of trauma: No Severity: moderate Relieving factors: remaining still Exacerbating factors: movement Associated symptoms: weakness, nausea - Related Data Home Medications Medication Instructions Recorded Confirmed Baclofen [Lioresal 10mg tablet] 10 mg PO TID 06/02/17 06/06/18 Donepezil HCl [Aricept 10mg 10 mg PO DAILY 06/02/17 06/06/18 tablet] Duloxetine HCl [Cymbalta] 60 mg PO DAILY 06/02/17 06/06/18 Esomeprazole Magnesium [Nexium] 40 mg PO DAILY 06/02/17 06/06/18 Folic Acid 0.4 mg PO DAILY 06/02/17 06/06/18 Metoprolol Succinate [Toprol XL 50 mg PO DAILY 06/02/17 06/06/18 50mg Tablet] Ropinirole HCl 1 - 2 mg PO DAILY 06/02/17 06/06/18 Simvastatin 20 mg PO DAILY 06/02/17 06/06/18 Zolpidem Tartrate [Ambien 10mg 5 - 10 mg PO HS 06/02/17 06/06/18 tablet] metHOTREXate sodium [metHOTREXate 7.5 mg PO WEEKLY 06/02/17 06/06/18 2.5mg Tablet] Oxycodone HCl [Oxycodone (IR) 10mg 10 mg PO TID PRN 06/16/17 06/06/18 Tab] Allergies Allergy/AdvReac Type Severity Reaction Status Date / Time celecoxib [From CELEBREX] Allergy Unknown Verified 08/02/17 14:37 [facility] History - Hepatitis A Screen Drug use history?: No High risk sexual behaviors?: No History of sexually transmitted infection?: No Currently employed?: No Childcare worker?: No Do you have indoor plumbing?: Yes Do you have electricity?: Yes Attestation statement:: This patient has been screened for Hepatitis A risk factors. I have reviewed the patient's past medical history: Yes Medical History: Reports:: Hypertension, Peripheral Vascular Disease Denies:: Cancer, Diabetes Mellitus Type 1, Diabetes Mellitus Type 2, MRSA Other Medical History: Reports: Cataracts, Other Laterality Cases: Left: Arthroscopy Knee Other Surgeries: Yes: Appendectomy, Hysterectomy-Total, Other Amputation: No Fractures: No Comment: Cholecystectomy, lumbar spine surgery - Social History Smoking Status: Never smoker Alcohol Intake: never Alcohol Intake Frequency:: other Substance Use Type: denies use Occupational Status: retired Housing: house Household Members: none - Psychiatric History Expresses thoughts of harming self/others: None Suicide Plan Description: No Plan Family Hx:: Coronary Artery Disease, Hypertension, Anemia, Asthma ROS Obtained: Yes All systems reviewed & no additional complaints - Constitutional Constitutional: Reports fever(s) - Eyes Eyes: Denies change in vision, Denies diplopia - ENT Ears, Nose, Mouth, and Throat: Denies sore throat, Reports vertigo/dizziness - Cardiovascular Cardiovascular: Denies chest pain, Denies dyspnea, Denies irregular heart rhythm, Reports lightheadedness - Respiratory Respiratory: No cough - Gastrointestinal Gastrointestingal: Reports: nausea. Denies: abdominal pain - Genitourinary Female Genitourinary: Denies dysuria - Musculoskeletal Musculoskeletal: Denies joint swelling - Integumentary/Breasts Skin/Breast: Denies rash - Neurologic Neurologic: Denies headache(s), Denies seizure-like activity Physical Exam - General General appearance: alert, in no apparent distress, obese - Head Head exam: normocephalic - Eye Eye exam: Present: PERRL, EOMI. Absent: scleral icterus, nystagmus - ENT ENT exam: Present: mucous membranes dry - Neck Neck exam: Present: trachea midline - Respiratory Respiratory exam: Present: normal lung sounds bilaterally - Cardiovascular Cardiovascular exam: Present: regular rate, systolic murmur, +S4, other (no def bruit ) - Abdominal Exam Abdominal exam: Present: soft - Extremities Exam Extremities exam: Present: full ROM - Neurological Exam Neurological exam: Present: alert, oriented X3, CN II-XII intact. Absent: normal gait, motor sensory deficit - Psychiatric Psychiatric exam: Present: normal affect - Skin Skin exam: Absent: rash
[2018-06-07 00:08] LABS: T4 (Thyroxine) 8.8 ug/dl (4.7-13.3); Thyroid Stimulating Hormone 0.79 uIU/ml (0.358-3.740)
[2018-06-07 07:27] LABS: Basophils % 0.4 % (0.1-2.0); Eosinophils # 0.2 K/mm3 (0.0-0.4); Eosinophils % 2.8 % (0.1-12.0); Hematocrit 35.4 % (37.0-47.0); Lymphocytes # 2.7 K/mm3 (0.7-4.5); Lymphocytes % 41.2 % (10-50); Mean Corpuscular HGB Conc 31.3 g/dL (31.8-35.4); Mean Corpuscular Hemoglobin 27.2 pg (27.0-31.2); Mean Corpuscular Volume 87.1 fl (81-99); Mean Platelet Volume 7.7 fl (7.4-10.4); Monocytes # 0.4 K/mm3 (0.1-1.0); Monocytes % 5.3 % (1.7-9.3); Neutrophils # 3.3 K/mm3 (1.8-7.8); Neutrophils % 50.3 % (37.0-80.0); Platelet Count 280 K/mm3 (142-424); Red Blood Count 4.07 M/mm3 (4.20-5.40); Red Cell Distribution Width 16.2 % (11.5-17.5); White Blood Count 6.6 K/mm3 (4.8-10.8)
--- NOTE | 2018-06-07 07:30 | History & Physical Report ---
*Admission Date: 06/07/18 *Chief complaint: Nausea *History of present illness: 78-year-old female with history of hypertension was brought to the emergency department by family yesterday evening with 2-3 days of nausea and poor appetite and a single episode of lightheadedness upon standing. Workup in the emergency department did not find any significant cause of her symptomatology. Because the patient lives alone she was admitted for IV fluid hydration and observation. [facility] History I have reviewed the patient's past medical history: Yes Medical History: Reports:: Hypertension, Peripheral Vascular Disease Denies:: Cancer, Diabetes Mellitus Type 1, Diabetes Mellitus Type 2, MRSA Have you ever received a pneumonia vaccine?: Yes Have you received a flu vaccine this season?: Yes Other Medical History: Reports: Cataracts, Other Laterality Cases: Left: Arthroscopy Knee Other Surgeries: Yes: Appendectomy, Hysterectomy-Total, Other Amputation: No Fractures: No - *Social History Smoking Status: Never smoker Alcohol Intake: never Alcohol Intake Frequency:: other Substance Use Type: denies use Occupational Status: retired Housing: house Household Members: none Travel in the last 8 weeks: None - Psychiatric History Expresses thoughts of harming self/others: None Suicide Plan Description: No Plan *Family Hx:: Coronary Artery Disease, Hypertension, Anemia, Asthma Review of Systems - Review of Systems Review of systems:: pertinent systems reviewed and negative unless documented below Patient denies headache, blurry vision, chest pain, shortness of breath, abdominal pain, vomiting, diarrhea, abdominal cramping, dysuria, urinary frequency, urgency - *Neurologic Reports dizziness, Denies headache(s), Denies seizure-like activity Meds Home Medications Medication Instructions Recorded Confirmed Type Baclofen [Lioresal 10mg tablet] 10 mg PO TID 06/02/17 06/06/18 History Donepezil HCl [Aricept 10mg 10 mg PO DAILY 06/02/17 06/06/18 History tablet] Duloxetine HCl [Cymbalta] 60 mg PO DAILY 06/02/17 06/06/18 History Esomeprazole Magnesium [Nexium] 40 mg PO DAILY 06/02/17 06/06/18 History Folic Acid 0.4 mg PO DAILY 06/02/17 06/06/18 History Metoprolol Succinate [Toprol XL 50 mg PO DAILY 06/02/17 06/06/18 History 50mg Tablet] Ropinirole HCl 1 - 2 mg PO DAILY 06/02/17 06/06/18 History Simvastatin 20 mg PO DAILY 06/02/17 06/06/18 History Zolpidem Tartrate [Ambien 10mg 5 - 10 mg PO HS 06/02/17 06/06/18 History tablet] metHOTREXate sodium [metHOTREXate 7.5 mg PO WEEKLY 06/02/17 06/06/18 History 2.5mg Tablet] Oxycodone HCl [Oxycodone (IR) 10mg 10 mg PO TID PRN 06/16/17 06/06/18 History Tab] Allergies Allergy/AdvReac Type Severity Reaction Status Date / Time celecoxib [From CELEBREX] Allergy Unknown Verified 08/02/17 14:37 Exam Vital signs and Labs for Last 24 Hours: Temp Pulse Resp BP Pulse Ox 98.3 F 63 15 116/49 L 95 06/07/18 04:00 06/07/18 04:00 06/07/18 04:00 06/07/18 04:00 06/07/18 04:00 Laboratory Results - last 24 hr 06/06/18 21:50: WBC 6.2, RBC 4.63, Hgb 12.6, Hct 40.5, MCV 87.4, MCH 27.2, MCHC 31.2 L, RDW 16.0, Plt Count 310, MPV 7.8, Neut % (Auto) 61.8, Lymph % (Auto) 31.7, [place] % (Auto) 4.0, Eos % (Auto) 1.9, Baso % (Auto) 0.6, Neut # (Auto) 3.9, Lymph # (Auto) 2.0, [place] # (Auto) 0.3, Eos # (Auto) 0.1, Baso # (Auto) 0.0 06/06/18 21:50: Sodium 135 L, Potassium 3.8, Chloride 98, Carbon Dioxide 27, Anion Gap 13.8, BUN 19 H, Creatinine 0.94, Estimated Creat Clear 56, Estimated GFR 58 L, Est GFR ( Amer) 70, Glucose 124 H, Calcium 9.6, Total Bilirubin 0.3, AST 23, ALT 30, Alkaline Phosphatase 93, Troponin I < 0.02, C-Reactive Protein 0.3, Total Protein 8.1, Albumin 3.8, Globulin 4.3 H, Albumin/Globulin Ratio 0.9 L 06/06/18 21:50: ESR 33 H 06/06/18 21:50: TSH 0.79, Thyroxine (T4) 8.8 06/06/18 22:20: Urine Color Yellow, Urine Appearance Clear, Urine pH 8.0, Ur Specific [place] 1.010, Urine Protein Negative, Urine Glucose (UA) Negative, Urine Ketones Negative, Urine Blood Negative, Urine Nitrate Negative, Urine Bilirubin Negative, Urine Urobilinogen 0.2, Ur Leukocyte Esterase Negative, Urine RBC 3-5, Urine WBC 3-5, Ur Squamous Epith Cells Occasional, Urine Bacteria Trace 06/06/18 22:20: Lactate 1.2 06/06/18 22:20: Influenza Type A Ag Negative, Influenza Type B Ag Negative 06/07/18 03:24: Troponin I < 0.02 I & O for Last 24 hours: Intake & Output 06/04/18 06/05/18 06/06/18 06/07/18 11:59 11:59 11:59 11:59 Weight 169 lb 4 oz Narrative: Patient is sitting up in a chair this morning. She is oriented to person place and time. ENT exam reveals a moist oropharynx. Neck is without carotid bruits. Lungs are clear to auscultation. Heart has a regular rate and rhythm. Abdomen is soft and nontender with active bowel sounds. Patient has active range of motion in all extremities and there is no neurologic deficit Assessment and Plan (1) Nausea Current visit: Yes Status: Acute Category: Medical Code(s): R11.0 - Nausea - Assessment and plan all Dx Assessment and Plan for all problems:: Continue IV fluids as there is likely some element of mild dehydration. Patient will be given pantoprazole this morning. Ambulate with assistance. Potential discharge this afternoon
[2018-06-07 07:42] LABS: Hemoglobin 11.1 g/dL (12.2-16.2)
--- NOTE | 2018-06-07 07:48 | Pharmacy Consult Notes ---
[facility] Pharmacy VTE Monitoring - Patient Demographics Admission date: 06/07/18 Report Date: 06/07/18 Time: 07:48 Allergies/Adverse Reactions: Patient Allergies celecoxib [From CELEBREX] Allergy (Unknown, Verified 08/02/17 14:37) Height: 1.57 m Weight: 76.771 kg Patient Problems: Current Active Problems Vertigo (Acute) Nausea (Acute) - VTE Risk Labs: VTE Related Lab Results Hgb 11.1 g/dL (12.2-16.2) L D 06/07/18 05:48 Hct 35.4 % (37.0-47.0) L 06/07/18 05:48 Plt Count 280 K/mm3 (142-424) 06/07/18 05:48 BUN 19 mg/dL (7-18) H 06/06/18 21:50 Creatinine 0.94 mg/dL (0.55-1.02) 06/06/18 21:50 Estimated Creat Clear 56 mL/min (50-200) 06/06/18 21:50 VTE Score: 2 VTE Risk Level: Low Risk Clinical Trial Participant: No - Prophylaxis VTE Prophylaxis Ordered?: Yes Types of VTE Prophylaxis: TEDS Knee High
[2018-06-07 07:49] LABS: Anion Gap 11.8 mEq/L (5-15); Blood Urea Nitrogen 15 mg/dL (7-18); Calcium 9.1 mg/dL (8.5-10.1); Carbon Dioxide 28 mmol/L (21.0-32.0); Chloride 104 mmol/L (98-107); Glucose 95 mg/dL (74-106); Potassium 3.8 mmoL/L (3.5-5.1); Sodium 140 mmol/L (136-145)
--- NOTE | 2018-06-07 08:49 | Carotid Imaging Report ---
"Cerebrovascular Exam Indications: 780.4 Dizziness and giddiness. IMPRESSIONS 1. The bilateral vertebral arteries are patent with normal antegrade flow. 2. Study suggests less than 20% stenosis involving the right internal carotid artery and the left internal carotid artery. History: Risk factors: Hypertension. Carotid duplex study. Complete study and Doppler flow study including spectral analysis, color and perry scale imaging. Location: Bedside. Patient status: Inpatient. Tables: Arterial flow: + +--------+--------+ |Location |V sys |V ed | + +--------+--------+ |Right CCA - proximal|88cm/s |16.1cm/s| + +--------+--------+ |Right CCA - distal |80.3cm/s|14.7cm/s| + +--------+--------+ |Right ECA |132cm/s |--------| + +--------+--------+ |Right ICA - proximal|74cm/s |14.7cm/s| + +--------+--------+ |Right ICA - mid |79.6cm/s|21cm/s | + +--------+--------+ |Right ICA - distal |85.9cm/s|27.9cm/s| + +--------+--------+ |Right vertebral |67cm/s |--------| + +--------+--------+ |Left CCA - proximal |143cm/s |22cm/s | + +--------+--------+ |Left CCA - distal |74.2cm/s|13.2cm/s| + +--------+--------+ |Left ECA |118cm/s |--------| + +--------+--------+ |Left ICA - proximal |74.8cm/s|21.4cm/s| + +--------+--------+ |Left ICA - mid |105cm/s |21.6cm/s| + +--------+--------+ |Left ICA - distal |103cm/s |27.5cm/s| + +--------+--------+ |Left vertebral |77.8cm/s|--------| + +--------+--------+ Velocity ratios: + + + + + + | |Right, V sys|Right, V ed|Left, V sys|Left, V ed| + + + + + + |Max ICA/dist CCA|1.07 |1.9 |1.42 |2.08 | + + + + + + (Report amended ) Electronically signed by: Triston Gaytan [id number]"
--- NOTE | 2018-06-07 16:42 | Discharge Summary ---
General - General Admission date:: 06/07/18 Discharge date: 06/07/18 HPI HPI: 78-year-old female with history of hypertension was brought to the emergency department by family yesterday evening with 2-3 days of nausea and poor appetite and a single episode of lightheadedness upon standing. Workup in the emergency department did not find any significant cause of her symptomatology. Because the patient lives alone she was admitted for IV fluid hydration and observation. Hospital Course Hospital Course: Patient was admitted and placed on telemetry. There were no arrhythmias. She was placed on a liquid diet which she tolerated. She did complain of some mild upset stomach but was able to ambulate and did not have any recurring episodes of lightheadedness or dizziness. On the afternoon of June 07 she was discharged home Objective Vital signs: Temp Pulse Resp BP Pulse Ox 98.5 F 77 20 140/45 L 95 06/07/18 08:00 06/07/18 08:00 06/07/18 08:00 06/07/18 08:00 06/07/18 08:00 Results Labs on day of discharge: Labs from last 24 hours 06/07/18 06/07/18 06/07/18 05:48 05:48 03:24 WBC 6.6 RBC 4.07 L Hgb 11.1 L D Hct 35.4 L MCV 87.1 MCH 27.2 MCHC 31.3 L RDW 16.2 Plt Count 280 MPV 7.7 Neut % (Auto) 50.3 Lymph % (Auto) 41.2 [place] % (Auto) 5.3 Eos % (Auto) 2.8 Baso % (Auto) 0.4 Neut # (Auto) 3.3 Lymph # (Auto) 2.7 [place] # (Auto) 0.4 Eos # (Auto) 0.2 Baso # (Auto) 0.0 ESR Sodium 140 Potassium 3.8 Chloride 104 Carbon Dioxide 28 Anion Gap 11.8 BUN 15 Creatinine 0.88 Estimated Creat Clear 56 Estimated GFR 62 Est GFR ( Amer) 75 Glucose 95 D Lactate Calcium 9.1 Magnesium 2.0 Total Bilirubin AST ALT Alkaline Phosphatase Troponin I < 0.02 < 0.02 C-Reactive Protein Total Protein Albumin Globulin Albumin/Globulin Ratio TSH Thyroxine (T4) Urine Color Urine Appearance Urine pH Ur Specific [place] Urine Protein Urine Glucose (UA) Urine Ketones Urine Blood Urine Nitrate Urine Bilirubin Urine Urobilinogen Ur Leukocyte Esterase Urine RBC Urine WBC Ur Squamous Epith Cells Urine Bacteria Influenza Type A Ag Influenza Type B Ag 06/06/18 06/06/18 06/06/18 22:20 22:20 22:20 WBC RBC Hgb Hct MCV MCH MCHC RDW Plt Count MPV Neut % (Auto) Lymph % (Auto) [place] % (Auto) Eos % (Auto) Baso % (Auto) Neut # (Auto) Lymph # (Auto) [place] # (Auto) Eos # (Auto) Baso # (Auto) ESR Sodium Potassium Chloride Carbon Dioxide Anion Gap BUN Creatinine Estimated Creat Clear Estimated GFR Est GFR ( Amer) Glucose Lactate 1.2 Calcium Magnesium Total Bilirubin AST ALT Alkaline Phosphatase Troponin I C-Reactive Protein Total Protein Albumin Globulin Albumin/Globulin Ratio TSH Thyroxine (T4) Urine Color Yellow Urine Appearance Clear Urine pH 8.0 Ur Specific [place] 1.010 Urine Protein Negative Urine Glucose (UA) Negative Urine Ketones Negative Urine Blood Negative Urine Nitrate Negative Urine Bilirubin Negative Urine Urobilinogen 0.2 Ur Leukocyte Esterase Negative Urine RBC 3-5 Urine WBC 3-5 Ur Squamous Epith Cells Occasional Urine Bacteria Trace Influenza Type A Ag Negative Influenza Type B Ag Negative 06/06/18 06/06/18 06/06/18 21:50 21:50 21:50 WBC RBC Hgb Hct MCV MCH MCHC RDW Plt Count MPV Neut % (Auto) Lymph % (Auto) [place] % (Auto) Eos % (Auto) Baso % (Auto) Neut # (Auto) Lymph # (Auto) [place] # (Auto) Eos # (Auto) Baso # (Auto) ESR 33 H Sodium 135 L Potassium 3.8 Chloride 98 Carbon Dioxide 27 Anion Gap 13.8 BUN 19 H Creatinine 0.94 Estimated Creat Clear 56 Estimated GFR 58 L Est GFR ( Amer) 70 Glucose 124 H Lactate Calcium 9.6 Magnesium Total Bilirubin 0.3 AST 23 ALT 30 Alkaline Phosphatase 93 Troponin I < 0.02 C-Reactive Protein 0.3 Total Protein 8.1 Albumin 3.8 Globulin 4.3 H Albumin/Globulin Ratio 0.9 L TSH 0.79 Thyroxine (T4) 8.8 Urine Color Urine Appearance Urine pH Ur Specific [place] Urine Protein Urine Glucose (UA) Urine Ketones Urine Blood Urine Nitrate Urine Bilirubin Urine Urobilinogen Ur Leukocyte Esterase Urine RBC Urine WBC Ur Squamous Epith Cells Urine Bacteria Influenza Type A Ag Influenza Type B Ag 06/06/18 21:50 WBC 6.2 RBC 4.63 Hgb 12.6 Hct 40.5 MCV 87.4 MCH 27.2 MCHC 31.2 L RDW 16.0 Plt Count 310 MPV 7.8 Neut % (Auto) 61.8 Lymph % (Auto) 31.7 [place] % (Auto) 4.0 Eos % (Auto) 1.9 Baso % (Auto) 0.6 Neut # (Auto) 3.9 Lymph # (Auto) 2.0 [place] # (Auto) 0.3 Eos # (Auto) 0.1 Baso # (Auto) 0.0 ESR Sodium Potassium Chloride Carbon Dioxide Anion Gap BUN Creatinine Estimated Creat Clear Estimated GFR Est GFR ( Amer) Glucose Lactate Calcium Magnesium Total Bilirubin AST ALT Alkaline Phosphatase Troponin I C-Reactive Protein Total Protein Albumin Globulin Albumin/Globulin Ratio TSH Thyroxine (T4) Urine Color Urine Appearance Urine pH Ur Specific [place] Urine Protein Urine Glucose (UA) Urine Ketones Urine Blood Urine Nitrate Urine Bilirubin Urine Urobilinogen Ur Leukocyte Esterase Urine RBC Urine WBC Ur Squamous Epith Cells Urine Bacteria Influenza Type A Ag Influenza Type B Ag DS: Diagnosis - Discharge Diagnosis (1) Nausea Status: Acute Discharge Plan - Patient Discharge Instructions ACTIVITY: Continue current activity DIET: continue same diet Patient Instructions: Vertigo, DI for Nausea -- Adult - Follow up Plan Follow up with: Kiko Pitt MD [Primary Care Provider] - Disposition: Home, Self-Senior Living Medications: Home Medications Medication Instructions Recorded Confirmed Type Baclofen [Lioresal 10mg tablet] 5 mg PO 0900,1300 06/02/17 06/07/18 History Donepezil HCl [Aricept 10mg 10 mg PO DAILY 06/02/17 06/06/18 History tablet] Duloxetine HCl [Cymbalta] 60 mg PO DAILY 06/02/17 06/06/18 History Esomeprazole Magnesium [Nexium] 40 mg PO DAILY 06/02/17 06/06/18 History Folic Acid 1 mg PO DAILY 06/02/17 06/07/18 History Metoprolol Succinate [Toprol XL 50 mg PO DAILY 06/02/17 06/06/18 History 50mg Tablet] Ropinirole HCl 1 - 2 mg PO HS 06/02/17 06/07/18 History metHOTREXate sodium [metHOTREXate 10 mg PO WEEKLY 06/02/17 06/07/18 History 2.5mg Tablet] Oxycodone HCl [Oxycodone (IR) 10mg 10 mg PO TIDP PRN 06/16/17 06/07/18 History Tab] Amlodipine Besylate 10 mg PO DAILY 06/07/18 06/07/18 History Baclofen [Lioresal 10mg tablet] 10 mg PO HSP PRN 06/07/18 06/07/18 History Simvastatin 20 mg PO DAILY 06/07/18 06/07/18 History Sucralfate [Carafate 1gm Tab] 1 gm PO BID #14 tablet 06/07/18 Rx Trazodone HCl 50 mg PO HS 06/07/18 06/07/18 History Zolpidem Tartrate [Zolpidem 6.25 mg PO HS 06/07/18 06/07/18 History Tartrate ER] Prescriptions/Medication Reconciliation: New Sucralfate [Carafate 1gm Tab] 1 gm PO BID #14 tablet Continue Baclofen [Lioresal 10mg tablet] 5 mg PO 0900,1300 Esomeprazole Magnesium [Nexium] 40 mg PO DAILY metHOTREXate sodium [metHOTREXate 2.5mg Tablet] 10 mg PO WEEKLY Folic Acid 1 mg PO DAILY Ropinirole HCl 1 - 2 mg PO HS Duloxetine HCl [Cymbalta] 60 mg PO DAILY Donepezil HCl [Aricept 10mg tablet] 10 mg PO DAILY Oxycodone HCl [Oxycodone (IR) 10mg Tab] 10 mg PO TIDP PRN PRN Reason: Moderate Pain Simvastatin 20 mg PO DAILY Amlodipine Besylate 10 mg PO DAILY Trazodone HCl 50 mg PO HS Zolpidem Tartrate [Zolpidem Tartrate ER] 6.25 mg PO HS Metoprolol Succinate [Toprol XL 50mg Tablet] 50 mg PO DAILY Baclofen [Lioresal 10mg tablet] 10 mg PO HSP PRN PRN Reason: SPASM
== END 2018-06-07 17:08 | disposition home or self-care (01) ==
LOC: 2ND 21:23 → ER 21:23 → 2ND 06-07 00:52
PROVIDERS: ADMIT Emergency Medicine; ATTEND Family Medicine
CPT/HCPCS: 36415; 70450; 71010; 71045; 80048; 80053; 81001; 83605; 83735; 84436; 84443; 84484; 85025; 85651; 86140; 87040; 87275; 87276; 93005; 93880; 96365; 96375; 99284; G0378; J2405

== ENCOUNTER → 2019-03-30 11:07 | Outpatient (CLI) | payer MEDICARE, OTHER, SELFPAY ==
[2019-03-30 12:13] LABS: Basophils # 0.1 K/mm3 (0-0.2); Basophils % 0.6 % (0.1-2.0); Eosinophils # 0.3 K/mm3 (0.0-0.4); Eosinophils % 2.2 % (0.1-12.0); Hematocrit 34.7 % (37.0-47.0); Lymphocytes # 2.7 K/mm3 (0.7-4.5); Lymphocytes % 23.4 % (10-50); Mean Corpuscular HGB Conc 31.7 g/dL (31.8-35.4); Mean Corpuscular Hemoglobin 28.1 pg (27.0-31.2); Mean Corpuscular Volume 88.7 fl (81-99); Monocytes # 0.9 K/mm3 (0.1-1.0); Monocytes % 7.8 % (1.7-9.3); Neutrophils # 7.7 K/mm3 (1.8-7.8); Platelet Count 299 K/mm3 (142-424); Red Blood Count 3.92 M/mm3 (4.20-5.40); Red Cell Distribution Width 15.8 % (11.5-17.5); White Blood Count 11.7 K/mm3 (4.8-10.8)
[2019-03-30 16:05] LABS: Alanine Aminotransferase 30 U/L (12-78); Albumin Level 3.2 gm/dL (3.4-5.0); Alkaline Phosphatase 72 U/L (46-116); Anion Gap 15.1 mEq/L (5-15); Aspartate Amino Transferase 34 U/L (15-37); Bilirubin,Total 0.3 mg/dL (0.2-1.0); Blood Urea Nitrogen 25 mg/dL (7-18); Calcium 8.9 mg/dL (8.5-10.1); Carbon Dioxide 24 mmol/L (21.0-32.0); Chloride 101 mmol/L (98-107); Creatinine,Serum 1.03 mg/dL (0.55-1.02); Estimated Glomerular Filt Rate 52 ml/min (>60); GFR (African American) 63 ML/MIN (>60); Globulin 3.1 gm/dl (1.3-3.2); Glucose 98 mg/dL (74-106); Potassium 4.1 mmoL/L (3.5-5.1); Sodium 136 mmol/L (136-145); Total Protein,Serum 6.3 gm/dL (6.4-8.2)
[2019-04-02 14:59] LABS: Folate >20.0 ng/mL (>3.0); Vitamin B12 567 pg/mL (232-1245)
== END ==
PROVIDERS: Family Medicine; Visit Provider Internal Medicine Rheumatology
DX: R41.3 Other amnesia (principal)
CPT/HCPCS: 36415; 80053; 82607; 82746; 84443; 85025

== ENCOUNTER 2019-04-16 18:28 | Observation (INO) ==
[2019-04-16 19:04] LABS: Microscopic, Urine URINE MICROSCOPIC (MICROSCOPIC)
[2019-04-16 19:07] LABS: Basophils % 0.1 % (0.1-2.0); Eosinophils # 0.2 K/mm3 (0.0-0.4); Eosinophils % 1.2 % (0.1-12.0); Hematocrit 36.4 % (37.0-47.0); Hemoglobin 11.1 g/dL (12.2-16.2); Lymphocytes # 1.1 K/mm3 (0.7-4.5); Mean Corpuscular HGB Conc 30.5 g/dL (31.8-35.4); Mean Corpuscular Volume 87.6 fl (81-99); Mean Platelet Volume 8.7 fl (7.4-10.4); Monocytes # 0.2 K/mm3 (0.1-1.0); Monocytes % 1.5 % (1.7-9.3); Neutrophils # 12.6 K/mm3 (1.8-7.8); Neutrophils % 89.2 % (37.0-80.0); Platelet Count 326 K/mm3 (142-424); Red Blood Count 4.15 M/mm3 (4.20-5.40); Red Cell Distribution Width 15.2 % (11.5-17.5); White Blood Count 14.1 K/mm3 (4.8-10.8)
[2019-04-16 19:11] LABS: Appearance,Urine CLEAR (Clear); Bilirubin,Urine Negative (Negative); Blood, Urine Negative (Negative); Color,Urine YELLOW (Yellow); Glucose,Urine (UA) Negative (Negative); Ketones,Urine Negative (Negative); Leukocyte Esterase,Urine Negative (Negative); Protein,Urine Negative (Negative); Specific Gravity, Urine >= 1.030 (1.005-1.030); Urobilinogen,Urine 0.2 EU/dl (0.2)
[2019-04-16 19:24] LABS: Hypochromasia 1+; Lymphocytes % 9 % (10-50); Monocytes % 1 % (2-9); Neutrophils % 90 % (42-76); Total Cells Counted 100
[2019-04-16 19:38] LABS: Bacteria,Urine Trace /lpf; Squamous Epithelial Cell,Urine Occasional #/hpf (0-5)
[2019-04-16 19:47] LABS: Alanine Aminotransferase 26 U/L (12-78); Albumin Level 2.9 gm/dL (3.4-5.0); Albumin/Globulin Ratio 0.8 (1.1-1.8); Alkaline Phosphatase 71 U/L (46-116); Anion Gap 16.3 mEq/L (5-15); Aspartate Amino Transferase 21 U/L (15-37); Bilirubin,Total 0.3 mg/dL (0.2-1.0); Blood Urea Nitrogen 18 mg/dL (7-18); Calcium 8.3 mg/dL (8.5-10.1); Carbon Dioxide 25 mmol/L (21.0-32.0); Chloride 102 mmol/L (98-107); Globulin 3.5 gm/dl (1.3-3.2); Glucose 121 mg/dL (74-106); Sodium 139 mmol/L (136-145); Total Protein,Serum 6.4 gm/dL (6.4-8.2)
--- NOTE | 2019-04-16 20:18 | Emergency Department Note ---
ED Disposition Clinical Impression: Weakness, Obesity (BMI 30-39.9) Disposition: Admitted as Observation Condition on Discharge: Good - Critical Care Critical Care Time: No Attestation: On 04/16/19, the high probability of a clinically significant, sudden or life threatening deterioration of the following system(s) required my full and direct attention, intervention and personal management. The time I documented below is in addition to time spent performing reported procedures but includes the following listed in this critical care notation. Medical Decision Making - Medical Records Medical records reviewed: Yes: I reviewed the patient's medical records. - Chidi Inquiry Pt receiving controlled substance: No Vital Signs: 04/16/19 18:28 Temperature 99.3 F Temperature Source Oral Pulse Rate [Right Radial] 74 Respiratory Rate 18 Blood Pressure [Right Arm] 146/91 H Blood Pressure Mean [Right Arm] 109 02 Sat by Pulse Oximetry 97 Oxygen Delivery Method Room Air - Lab Data Lab results reviewed: Yes: I reviewed the patient's lab results. Lab Results 04/16/19 18:54: Urine Color Yellow, Urine Appearance Clear, Urine pH 6.0, Ur Specific [place] >= 1.030, Urine Protein Negative, Urine Glucose (UA) Negative, Urine Ketones Negative, Urine Blood Negative, Urine Nitrate Negative, Urine Bilirubin Negative, Urine Urobilinogen 0.2, Ur Leukocyte Esterase Negative, Urine WBC 3-5, Ur Squamous Epith Cells Occasional, Urine Bacteria Trace 04/16/19 18:54: WBC 14.1 H, RBC 4.15 L, Hgb 11.1 L, Hct 36.4 L, MCV 87.6, MCH 26.7 L, MCHC 30.5 L, RDW 15.2, Plt Count 326, MPV 8.7, Neut % (Auto) 89.2 H, Lymph % (Auto) 8.0 L, [place] % (Auto) 1.5 L, Eos % (Auto) 1.2, Baso % (Auto) 0.1, Neut # (Auto) 12.6 H, Lymph # (Auto) 1.1, [place] # (Auto) 0.2, Eos # (Auto) 0.2, B aso # (Auto) 0.0, Total Counted 100, Neutrophils % (Manual) 90 H, Lymphocytes % (Manual) 9 L, Monocytes % (Manual) 1 L, Platelet Estimate Normal, RBC Morphology Not Reportable, Hypochromasia 1+ 12/03/19 18:54: Influenza Type A Ag Negative, Influenza Type B Ag Negative 04/16/19 19:24: Sodium 139, Potassium 4.3, Chloride 102, Carbon Dioxide 25, Anion Gap 16.3 H, BUN 18, Creatinine 1.17 H, Estimated Creat Clear 53, Estimated GFR 45 L, Est GFR ( Amer) 54 L, Glucose 121 H, Calcium 8.3 L, Total Bilirubin 0.3, AST 21, ALT 26, Alkaline Phosphatase 71, Troponin I < 0.02, Total Protein 6.4, Albumin 2.9 L, Globulin 3.5 H, Albumin/Globulin Ratio 0.8 L 04/16/19 19:24: Lactate 2.9 H Result diagrams: 04/16/19 18:54 04/16/19 19:24 Orders (Tests/Meds): ED MEDICATIONS Generic Name Dose Route Start Last Admin Trade Name Freq PRN Reason Stop Dose Admin Sodium Chloride 1,000 mls @ 999 mls/hr 04/16/19 18:45 04/16/19 19:01 Sod Chlor 0.9% 1000ml Bag IV 04/16/19 19:45 999 mls/hr .Q1H1M LOIS Administration ORDERS Category Date Time Status CT cervical spine wo con Stat Cat Scan 04/16/19 18:[address] head/brain wo con Stat Cat Scan 04/16/19 18:52 Taken XR chest AP Stat Exams 04/16/19 18:33 Taken XR pelvis 1-2V Stat Exams 04/16/19 18:52 Taken Blood Culture Stat Micro 04/16/19 18:54 Received - Radiology Data #1 Image(s): Chest, Pelvis Image Reviewed: Yes I reviewed the patient's radiology image Preliminary Findings: No Fracture Seen - CT Data CT Scan: Head, C-Spine Time Received: 21:[address] Reviewed: Yes: I have viewed the radiologist's interpretation Preliminary Findings: Abnormal (see report ) - ECG Data Tracing #1 Normal Sinus Rhythm: Yes Ischemic changes: non-specific ST-T wave changes - Physician Consults Physician Consulted: benito Reason -: Admission Weakness HPI - General Chief complaint: Weakness Stated complaint: weakness Time Seen by Provider: 04/16/19 20:17 Mode of Arrival: Ambulatory Source of Information: Patient, Relative, Medical Record Limitations: No Limitations Description of Symptoms (Recalled from ER Triage Doc. by RN): pt presents to ed with c/o generalized weakness and overall not feeling well. pt states that when she went to take her bath she became sweaty and diaphoretic. pt is unsure if she has been running a fever or not. - History of Present Illness HPI Narrative: pt and family report not feeling well today with weakness and 2 episodes of di aphoresis- no chest pain or palpitation- no sz or syncope reported - pt has hx of steroid dependent copd - no fever reported and no def fall - MD Complaint: generalized weakness Onset (ago): hour(s) Duration: intermittent Location: generalized Severity: moderate Associated symptoms: denies other symptoms - Related Data Home Medications Medication Instructions Recorded Confirmed Donepezil HCl [Aricept 10mg 10 mg PO DAILY 06/02/17 04/16/19 tablet] Duloxetine HCl [Cymbalta] 60 mg PO DAILY 06/02/17 04/16/19 Esomeprazole Magnesium [Nexium] 40 mg PO DAILY 06/02/17 04/16/19 Folic Acid 1 mg PO DAILY 06/02/17 04/16/19 Metoprolol Succinate [Toprol XL 50 mg PO DAILY 06/02/17 04/16/19 50mg Tablet] Ropinirole HCl 1 - 2 mg PO HS 06/02/17 04/16/19 Oxycodone HCl [Oxycodone (IR) 10mg 10 mg PO TIDP PRN 06/16/17 04/16/19 Tab] Amlodipine Besylate 10 mg PO DAILY 06/07/18 04/16/19 Baclofen [Lioresal 10mg tablet] 10 mg PO HSP PRN 06/07/18 04/16/19 Simvastatin 20 mg PO DAILY 06/07/18 04/16/19 Trazodone HCl 50 mg PO HS 06/07/18 04/16/19 Zolpidem Tartrate [Zolpidem 6.25 mg PO HS 06/07/18 04/16/19 Tartrate ER] Meclizine HCl [Meclizine 12.5mg 1 tab PO BID 12/22/18 04/16/19 Tab] predniSONE [Deltasone 20mg 1 tab PO DAILY 12/22/18 04/16/19 tablet] Allergies Allergy/AdvReac Type Severity Reaction Status Date / Time celecoxib [From CELEBREX] Allergy Unknown Verified 08/02/17 14:37 [facility] [place] History - Hepatitis A Screen Drug use history?: No High risk sexual behaviors?: No History of sexually transmitted infection?: No Currently employed?: No Childcare worker?: No Do you have indoor plumbing?: Yes Do you have electricity?: Yes Attestation statement:: This patient has been screened for Hepatitis A risk factors. I have reviewed the patient's past medical history: Yes Medical History: Reports:: Hypertension, Peripheral Vascular Disease Denies:: Cancer, Diabetes Mellitus Type 1, Diabetes Mellitus Type 2, MRSA Other Medical History: Reports: Cataracts, Other Laterality Cases: Left: Arthroscopy Knee, Total Knee Replacement, Right: Total Hip Replacement, Bilateral: Tonsillectomy Other Surgeries: Yes: Appendectomy, Hysterectomy-Total, Other Amputation: No Fractures: Yes (NECK,ARM,HIP) Comment: Cholecystectomy, lumbar spine surgery - Social History Smoking Status: Never smoker Alcohol Intake: never Alcohol Intake Frequency:: other Substance Use Type: denies use Occupational Status: retired Housing: house Household Members: none Family Hx:: Coronary Artery Disease, Hypertension, Anemia, Asthma ROS Obtained: Yes All systems reviewed & no additional complaints - Constitutional Constitutional: Reports as per HPI, Denies fever(s), Reports weakness - Eyes Eyes: Denies photophobia - ENT Ears, Nose, Mouth, and Throat: Denies sore throat - Cardiovascular Cardiovascular: Denies chest pain, Denies dyspnea - Respiratory Respiratory: No cough - Gastrointestinal Gastrointestingal: Reports: nausea. Denies: abdominal pain, diarrhea, vomiting - Genitourinary Female Genitourinary: Denies hematuria - Musculoskeletal Musculoskeletal: Denies joint pain, Denies joint swelling, Denies neck pain - Integumentary/Breasts Skin/Breast: Denies rash - Neurologic Neurologic: Reports as per HPI, Denies abnormal speech, Denies focal weakness, Denies frequent falls, Denies seizure-like activity, Reports weakness Physical Exam - General General appearance: alert, obese - Head Head exam: normocephalic - Eye Eye exam: Present: PERRL, EOMI. Absent: scleral icterus, nystagmus - ENT ENT exam: Present: mucous membranes dry - Neck Neck exam: Present: trachea midline - Respiratory Respiratory exam: Present: normal lung sounds bilaterally. Absent: respiratory distress - Cardiovascular Cardiovascular exam: Present: regular rate, systolic murmur, +S4 - Abdominal Exam Abdominal exam: Present: soft. Absent: tenderness, guarding, rebound - Extremities Exam Extremities exam: Present: pedal edema. Absent: joint swelling - Neurological Exam Neurological exam: Present: alert, CN II-XII intact. Absent: motor sensory deficit - Skin Skin exam: Absent: rash
[2019-04-17 03:59] LABS: Basophils # 0.1 K/mm3 (0-0.2); Basophils % 0.3 % (0.1-2.0); Eosinophils # 0.1 K/mm3 (0.0-0.4); Eosinophils % 0.5 % (0.1-12.0); Hematocrit 34.4 % (37.0-47.0); Hemoglobin 10.2 g/dL (12.2-16.2); Lymphocytes % 21.2 % (10-50); Mean Corpuscular HGB Conc 29.7 g/dL (31.8-35.4); Mean Corpuscular Volume 87.3 fl (81-99); Mean Platelet Volume 7.9 fl (7.4-10.4); Monocytes # 0.9 K/mm3 (0.1-1.0); Monocytes % 6.1 % (1.7-9.3); Neutrophils # 10.2 K/mm3 (1.8-7.8); Neutrophils % 71.9 % (37.0-80.0); Platelet Count 311 K/mm3 (142-424); Red Blood Count 3.94 M/mm3 (4.20-5.40); Red Cell Distribution Width 15.3 % (11.5-17.5); White Blood Count 14.1 K/mm3 (4.8-10.8)
[2019-04-17 04:01] LABS: Anion Gap 13.4 mEq/L (5-15); Calcium 8.2 mg/dL (8.5-10.1)
--- NOTE | 2019-04-17 07:18 | H&P/Discharge Summary ---
General - General Admission date:: 04/17/19 Discharge date: 04/17/19 *Admission Date: 04/16/19 *Chief complaint: Diaphoresis and weakness *History of present illness: 79-year-old female was in her normal state at home yesterday doing some light work around the house when she became acutely diaphoretic with cold sweats. Patient took a few minutes to sit down and rest. When she felt better she began working again and in a short time developed cold sweats again this time associated with some dizziness. Patient rested once again and symptoms resolved. She then contacted her daughter who recommended she come to the emergency department. In the emergency department she underwent evaluation. She had a relatively normal exam with an elevated white blood cell count and lactate level. Patient was admitted for IV fluids and repeat lactate level. Nursing staff reports patient did well overnight. In regards to her diaphoresis and dizziness patient has not had any recurrent symptoms since admission to the hospital. Review of systems is negative for chest pain, syncope or presyncope, unilateral paresthesias or paralysis, difficulty speaking or swallowing, falls. Patient does have chronic dyspnea from COPD. [facility] History I have reviewed the patient's past medical history: Yes Medical History: Reports:: Chronic Obstructive Pulmonary Disease (COPD), Hypertension, Peripheral Vascular Disease Denies:: Cancer, Diabetes Mellitus Type 1, Diabetes Mellitus Type 2, MRSA *Have you ever received a pneumonia vaccine?: Yes (thinks 2 yr ago) *Have you received a flu vaccine this season?: No Other Medical History: Reports: Cataracts (surgical repair bilat), Other Comment:: Chronic pain syndrome Laterality Cases: Left: Arthroscopy Knee, Total Knee Replacement, Right: Total Hip Replacement, Bilateral: Tonsillectomy Other Surgeries: Yes: Appendectomy, Cholecystectomy, Hysterectomy-Total, Other Amputation: No Fractures: Yes (NECK,ARM,HIP) - *Social History Educational Level: Completed GED/General Educational Development Smoking Status: Never smoker Alcohol Intake: never Alcohol Intake Frequency:: other Substance Use Type: denies use *Occupational Status:: retired Housing: house Household Members: none *Travel in the last 8 weeks: None Family Hx:: Unable to obtain Review of Systems - Review of Systems Review of systems:: pertinent systems reviewed and negative unless documented below - *Neurologic Reports weakness, Denies abnormal speech, Denies localized weakness, Denies frequent falls, Denies seizure-like activity Exam Vital signs and Labs for Last 24 Hours: Temp Pulse Resp BP Pulse Ox 98.2 F 74 21 144/55 H 94 L 04/17/19 04:00 04/17/19 04:00 04/17/19 04:00 04/17/19 04:00 04/17/19 04:00 Laboratory Results - last 24 hr 04/16/19 18:54: Urine Color Yellow, Urine Appearance Clear, Urine pH 6.0, Ur Specific [address] >= 1.030, Urine Protein Negative, Urine Glucose (UA) Negative, Urine Ketones Negative, Urine Blood Negative, Urine Nitrate Negative, Urine Bilirubin Negative, Urine Urobilinogen 0.2, Ur Leukocyte Esterase Negative, Urine WBC 3-5, Ur Squamous Epith Cells Occasional, Urine Bacteria Trace 04/16/19 18:54: WBC 14.1 H, RBC 4.15 L, Hgb 11.1 L, Hct 36.4 L, MCV 87.6, MCH 26.7 L, MCHC 30.5 L, RDW 15.2, Plt Count 326, MPV 8.7, Neut % (Auto) 89.2 H, Lymph % (Auto) 8.0 L, [place] % (Auto) 1.5 L, Eos % (Auto) 1.2, Baso % (Auto) 0.1, Neut # (Auto) 12.6 H, Lymph # (Auto) 1.1, [place] # (Auto) 0.2, Eos # (Auto) 0.2, Baso # (Auto) 0.0, Total Counted 100, Neutrophils % (Manual) 90 H, Lymphocytes % (Manual) 9 L, Monocytes % (Manual) 1 L, Platelet Estimate Normal, RBC Morphology Not Reportable, Hypochromasia 1+ 04/16/19 18:54: Influenza Type A Ag Negative, Influenza Type B Ag Negative 04/16/19 19:24: Sodium 139, Potassium 4.3, Chloride 102, Carbon Dioxide 25, Anion Gap 16.3 H, BUN 18, Creatinine 1.17 H, Estimated Creat Clear 53, Estimated GFR 45 L, Est GFR ( Amer) 54 L, Glucose 121 H, Calcium 8.3 L, Total Bilirubin 0.3, AST 21, ALT 26, Alkaline Phosphatase 71, Troponin I < 0.02, Total Protein 6.4, Albumin 2.9 L, Globulin 3.5 H, Albumin/Globulin Ratio 0.8 L 04/16/19 19:24: Lactate 2.9 H 04/16/19 23:35: Lactate 1.4 04/17/19 00:30: Troponin I < 0.02 04/17/19 03:40: Troponin I < 0.02 04/17/19 03:40: WBC 14.1 H, RBC 3.94 L, Hgb 10.2 L, Hct 34.4 L, MCV 87.3, MCH 25.9 L, MCHC 29.7 L, RDW 15.3, Plt Count 311, MPV 7.9, Neut % (Auto) 71.9, Lymph % (Auto) 21.2, [place] % (Auto) 6.1, Eos % (Auto) 0.5, Baso % (Auto) 0.3, Neut # (Auto) 10.2 H, Lymph # (Auto) 3.0, [place] # (Auto) 0.9, Eos # (Auto) 0.1, Baso # (Auto) 0.1 04/17/19 03:40: Sodium 140, Potassium 3.4 L D, Chloride 104, Carbon Dioxide 26, Anion Gap 13.4, BUN 16, Creatinine 0.96, Estimated Creat Clear 62, Estimated GFR 56 L, Est GFR ( Amer) 68 D, Glucose 106, Calcium 8.2 L, Magnesium 1.9 I & O for Last 24 hours: Intake & Output 04/14/19 04/15/19 04/16/19 04/17/19 11:59 11:59 11:59 11:59 Intake Total 240 / 240 Output Total 600 / 600 Balance -360 / -360 Weight 191 lb 5 oz Narrative: Patient is awake and alert and resting comfortably in bed with no signs of distress. HEENT exam is normal. Visual acuity was not tested. Oropharynx is moist and clear. Neck has no carotid bruits. Lungs are clear. Heart has a regular rate and rhythm. Abdomen is soft and obese but nontender with active bowel sounds. Patient has active range of motion in all extremities with symmetric commercial door installer strength and symmetric lower extremity strength. Neurologically she exhibits no deficit. Hospital Course Hospital Course: Patient was admitted for observation. Repeat lactate level improved. White blood cell count remained elevated around 14,000 but no source of infection was identified. Patient was admitted on telemetry without arrhythmia. Patient was observed through the early afternoon on April 17 and later discharged home. Discussion was had with the patient about how she does take multiple medicines which increase her chance of fall including her oxycodone, trazodone, Ambien. This discussions been had with the patient as an outpatient before. Both she and the family are aware of the risks associated with these medicines Results Labs on day of discharge: Labs from last 24 hours 04/17/19 04/17/19 04/17/19 03:40 03:40 03:40 WBC 14.1 H RBC 3.94 L Hgb 10.2 L Hct 34.4 L MCV 87.3 MCH 25.9 L MCHC 29.7 L RDW 15.3 Plt Count 311 MPV 7.9 Neut % (Auto) 71.9 Lymph % (Auto) 21.2 [place] % (Auto) 6.1 Eos % (Auto) 0.5 Baso % (Auto) 0.3 Neut # (Auto) 10.2 H Lymph # (Auto) 3.0 [place] # (Auto) 0.9 Eos # (Auto) 0.1 Baso # (Auto) 0.1 Total Counted Neutrophils % (Manual) Lymphocytes % (Manual) Monocytes % (Manual) Platelet Estimate RBC Morphology Hypochromasia Sodium 140 Potassium 3.4 L D Chloride 104 Carbon Dioxide 26 Anion Gap 13.4 BUN 16 Creatinine 0.96 Estimated Creat Clear 62 Estimated GFR 56 L Est GFR ( Amer) 68 D Glucose 106 Lactate Calcium 8.2 L Magnesium 1.9 Total Bilirubin AST ALT Alkaline Phosphatase Troponin I < 0.02 Total Protein Albumin Globulin Albumin/Globulin Ratio Urine Color Urine Appearance Urine pH Ur Specific [address] Urine Protein Urine Glucose (UA) Urine Ketones Urine Blood Urine Nitrate Urine Bilirubin Urine Urobilinogen Ur Leukocyte Esterase Urine WBC Ur Squamous Epith Cells Urine Bacteria Influenza Type A Ag Influenza Type B Ag 04/17/19 04/16/19 04/16/19 00:30 23:35 19:24 WBC RBC Hgb Hct MCV MCH MCHC RDW Plt Count MPV Neut % (Auto) Lymph % (Auto) [place] % (Auto) Eos % (Auto) Baso % (Auto) Neut # (Auto) Lymph # (Auto) [place] # (Auto) Eos # (Auto) Baso # (Auto) Total Counted Neutrophils % (Manual) Lymphocytes % (Manual) Monocytes % (Manual) Platelet Estimate RBC Morphology Hypochromasia Sodium Potassium Chloride Carbon Dioxide Anion Gap BUN Creatinine Estimated Creat Clear Estimated GFR Est GFR ( Amer) Glucose Lactate 1.4 2.9 H Calcium Magnesium Total Bilirubin AST ALT Alkaline Phosphatase Troponin I < 0.02 Total Protein Albumin Globulin Albumin/Globulin Ratio Urine Color Urine Appearance Urine pH Ur Specific [address] Urine Protein Urine Glucose (UA) Urine Ketones Urine Blood Urine Nitrate Urine Bilirubin Urine Urobilinogen Ur Leukocyte Esterase Urine WBC Ur Squamous Epith Cells Urine Bacteria Influenza Type A Ag Influenza Type B Ag 04/16/19 04/16/19 04/16/19 19:24 18:54 18:54 WBC 14.1 H RBC 4.15 L Hgb 11.1 L Hct 36.4 L MCV 87.6 MCH 26.7 L MCHC 30.5 L RDW 15.2 Plt Count 326 MPV 8.7 Neut % (Auto) 89.2 H Lymph % (Auto) 8.0 L [place] % (Auto) 1.5 L Eos % (Auto) 1.2 Baso % (Auto) 0.1 Neut # (Auto) 12.6 H Lymph # (Auto) 1.1 [place] # (Auto) 0.2 Eos # (Auto) 0.2 Baso # (Auto) 0.0 Total Counted 100 Neutrophils % (Manual) 90 H Lymphocytes % (Manual) 9 L Monocytes % (Manual) 1 L Platelet Estimate Normal RBC Morphology Not Reportable Hypochromasia 1+ Sodium 139 Potassium 4.3 Chloride 102 Carbon Dioxide 25 Anion Gap 16.3 H BUN 18 Creatinine 1.17 H Estimated Creat Clear 53 Estimated GFR 45 L Est GFR ( Amer) 54 L Glucose 121 H Lactate Calcium 8.3 L Magnesium Total Bilirubin 0.3 AST 21 ALT 26 Alkaline Phosphatase 71 Troponin I < 0.02 Total Protein 6.4 Albumin 2.9 L Globulin 3.5 H Albumin/Globulin Ratio 0.8 L Urine Color Urine Appearance Urine pH Ur Specific [address] Urine Protein Urine Glucose (UA) Urine Ketones Urine Blood Urine Nitrate Urine Bilirubin Urine Urobilinogen Ur Leukocyte Esterase Urine WBC Ur Squamous Epith Cells Urine Bacteria Influenza Type A Ag Negative Influenza Type B Ag Negative 04/16/19 18:54 WBC RBC Hgb Hct MCV MCH MCHC RDW Plt Count MPV Neut % (Auto) Lymph % (Auto) [place] % (Auto) Eos % (Auto) Baso % (Auto) Neut # (Auto) Lymph # (Auto) [place] # (Auto) Eos # (Auto) Baso # (Auto) Total Counted Neutrophils % (Manual) Lymphocytes % (Manual) Monocytes % (Manual) Platelet Estimate RBC Morphology Hypochromasia Sodium Potassium Chloride Carbon Dioxide Anion Gap BUN Creatinine Estimated Creat Clear Estimated GFR Est GFR ( Amer) Glucose Lactate Calcium Magnesium Total Bilirubin AST ALT Alkaline Phosphatase Troponin I Total Protein Albumin Globulin Albumin/Globulin Ratio Urine Color Yellow Urine Appearance Clear Urine pH 6.[address] >= 1.030 Urine Protein Negative Urine Glucose (UA) Negative Urine Ketones Negative Urine Blood Negative Urine Nitrate Negative Urine Bilirubin Negative Urine Urobilinogen 0.2 Ur Leukocyte Esterase Negative Urine WBC 3-5 Ur Squamous Epith Cells Occasional Urine Bacteria Trace Influenza Type A Ag Influenza Type B Ag DS: Diagnosis - Discharge Diagnosis (1) Weakness Status: Acute (2) Osteoarthritis Status: Acute Discharge Plan - Patient Discharge Instructions ACTIVITY: Continue current activity DIET: continue same diet Patient Instructions: DI for Muscle Weakness - Follow up Plan Disposition: Home, Self-Fci Medications: Home Medications Medication Instructions Recorded Confirmed Type Donepezil HCl [Aricept 10mg 10 mg PO DAILY 06/02/17 04/16/19 History tablet] Duloxetine HCl [Cymbalta] 60 mg PO DAILY 06/02/17 04/16/19 History Esomeprazole Magnesium [Nexium] 40 mg PO DAILY 06/02/17 04/16/19 History Folic Acid 1 mg PO DAILY 06/02/17 04/16/19 History Metoprolol Succinate [Toprol XL 50 mg PO DAILY 06/02/17 04/16/19 History 50mg Tablet] Ropinirole HCl 1 - 2 mg PO HS 06/02/17 04/16/19 History Oxycodone HCl [Oxycodone (IR) 10mg 10 mg PO TIDP PRN 06/16/17 04/16/19 History Tab] Amlodipine Besylate 10 mg PO DAILY 06/07/18 04/16/19 History Baclofen [Lioresal 10mg tablet] 10 mg PO HSP PRN 06/07/18 04/16/19 History Simvastatin 20 mg PO DAILY 06/07/18 04/16/19 History Trazodone HCl 50 mg PO HS 06/07/18 04/16/19 History Zolpidem Tartrate [Zolpidem 6.25 mg PO HS 06/07/18 04/16/19 History Tartrate ER] Meclizine HCl [Meclizine 12.5mg 1 tab PO BID 12/22/18 04/16/19 History Tab] predniSONE [Deltasone 20mg 1 tab PO DAILY 12/22/18 04/16/19 History tablet] Prescriptions/Medication Reconciliation: Continued Esomeprazole Magnesium [Nexium] 40 mg PO DAILY Folic Acid 1 mg PO DAILY Ropinirole HCl 1 - 2 mg PO HS Duloxetine HCl [Cymbalta] 60 mg PO DAILY Donepezil HCl [Aricept 10mg tablet] 10 mg PO DAILY Oxycodone HCl [Oxycodone (IR) 10mg Tab] 10 mg PO TIDP PRN PRN Reason: Moderate Pain Simvastatin 20 mg PO DAILY Amlodipine Besylate 10 mg PO DAILY Trazodone HCl 50 mg PO HS Zolpidem Tartrate [Zolpidem Tartrate ER] 6.25 mg PO HS predniSONE [Deltasone 20mg tablet] 1 tab PO DAILY Meclizine HCl [Meclizine 12.5mg Tab] 1 tab PO BID Metoprolol Succinate [Toprol XL 50mg Tablet] 50 mg PO DAILY Baclofen [Lioresal 10mg tablet] 10 mg PO HSP PRN PRN Reason: SPASM - Problem Reconciliation Problems Reviewed?: Yes
--- NOTE | 2019-04-17 07:22 | Pharmacy Consult Notes ---
[facility] Pharmacy VTE Monitoring - Patient Demographics Admission date: 04/16/19 Report Date: 04/17/19 Time: 07:22 Allergies/Adverse Reactions: Patient Allergies celecoxib [From CELEBREX] Allergy (Unknown, Verified 08/02/17 14:37) Height: 1.55 m Weight: 86.778 kg Patient Problems: Current Active Problems Weakness (Acute) Obesity (BMI 30-39.9) (Acute) - VTE Risk Labs: VTE Related Lab Results Hgb 10.2 g/dL (12.2-16.2) L 04/17/19 03:40 Hct 34.4 % (37.0-47.0) L 04/17/19 03:40 Plt Count 311 K/mm3 (142-424) 04/17/19 03:40 BUN 16 mg/dL (7-18) 04/17/19 03:40 Creatinine 0.96 mg/dL (0.55-1.02) 04/17/19 03:40 Estimated Creat Clear 62 mL/min (50-200) 04/17/19 03:40 Was VTE Risk Assessment Performed: Yes VTE Score: 6 VTE Risk Level: Moderate Risk Clinical Trial Participant: No - Prophylaxis VTE Prophylaxis Ordered?: Yes Types of VTE Prophylaxis: TEDS Knee High
--- NOTE | 2019-04-19 16:41 | Electrocardiograph Report ---
APPROVED REPORT Exam: Resting ECG HR:72 bpm ECG Measurements Heart Rate 72 AXES LA 154 P 13 QRSd 80 QRS 2 QT 432 T24 QTc 473 <Conclusion> Sinus rhythm with premature atrial complexes with aberrant conduction Otherwise normal ECG Electronically signed by : Kiko Simpson, 04/19/2019 16:40:47
== END 2019-04-17 13:45 | disposition home or self-care (01) ==
LOC: ER 18:28 → 2ND 18:28
PROVIDERS: ADMIT Internal Medicine Adolescent Medicine; ATTEND Family Medicine
DX: M19.90 Unspecified osteoarthritis, unspecified site; R53.1 Weakness; I10 Essential (primary) hypertension; J44.9 Chronic obstructive pulmonary disease, unspecified; G89.4 Chronic pain syndrome; Z79.899 Other long term (current) drug therapy
CPT/HCPCS: 36415; 70450; 71010; 71045; 72125; 72170; 80048; 80053; 81001; 83605; 83735; 84484; 85007; 85025; 87040; 87275; 87276; 93005; 96365; 99285; G0378

== ENCOUNTER 2019-06-04 12:53 | Outpatient (RCR) | payer MEDICARE, OTHER, SELFPAY ==
--- NOTE | 2019-06-04 14:44 | HMH.PTOPEV ---
PT Outpatient Evaluation Rehab PT Outpatient Evaluation Start: 06/04/19 14:26 Freq: Status: Active Protocol: Document 06/04/19 14:26 PANTERA (Rec: 06/04/19 14:44 KATMARISABEL [id number]) Electronically Signed By Aristides Davila, PT 06/04/19 14:26 Outpatient Therapy Subjective History Subjective History Patient is a 79 year old female presenting to outpatient PT with reports of generalized weakness and endurance after an episode of bronchitis with UTI occurring 05/11/19. Pt reports walking time before rest approx 15'. Standing time before rest approx 15'. She requires assisstance with majority of household care. She lives alone. 1 step to enter house, 3 through the garage. No falls to reports over the past 6 months. Comorbidities include OA, RA, PA, B RCT, COPD, fibromyalgia, hx of L hip ORIF and R knee replacement. Chief Complaint Weakness Symptom Type Other Symptoms Relieved By Rest/Positioning Symptoms Aggravated By Standing,Physical Activity, Walking Prior Functional Limitations None Current Functional Limitations Lifting,Housework,Standing, Squatting,Recreation Activity, Walking,Stairs,Balance,Bending /Stooping Balance Eval Subjective Hx of Complaint Comment general weakness and dec endurance. Prior Functional Limitations Prior Functional Moore Level Independent with all ADL' s and majority of lift mechanic. Current Functional Limitations Comment 15' walking, 15' standing, requries assistance with lift mechanic Hx of Falls Hx Falls Yes: 1 year Number in last 6 months 0 Gait/Posture Asssessment General Gait Observation Wide Based Gait,Shuffling Step Assistive Devices None / NA Level of Transfer Assist Independent Timed Up and Go Test 1. Is the Timed Up and Go test result > yes or = to 12 seconds? [place] Feet Together/Eyes open/Stable Surface fail Feet Together/Eyes Closed/Stable Surface fail
== END 2019-06-04 12:55 | disposition home or self-care (01) ==
LOC: PT 12:53
PROVIDERS: PCP Family Medicine; Visit Provider Family Medicine
DX: R53.1 Weakness (principal); W19.XXXD Unspecified fall, subsequent encounter
CPT/HCPCS: 97163

== ENCOUNTER 2019-06-06 11:33 | Inpatient (IN) ==
[2019-06-06 13:13] LABS: Basophils # 0.1 K/mm3 (0-0.2); Basophils % 0.6 % (0.1-2.0); Eosinophils # 0.8 K/mm3 (0.0-0.4); Eosinophils % 6.7 % (0.1-12.0); Hematocrit 38.3 % (37.0-47.0); Hemoglobin 11.7 g/dL (12.2-16.2); Lymphocytes # 2.2 K/mm3 (0.7-4.5); Lymphocytes % 18.1 % (10-50); Mean Corpuscular HGB Conc 30.5 g/dL (31.8-35.4); Mean Corpuscular Volume 81.5 fl (81-99); Mean Platelet Volume 8.1 fl (7.4-10.4); Monocytes # 0.8 K/mm3 (0.1-1.0); Monocytes % 6.4 % (1.7-9.3); Neutrophils # 8.3 K/mm3 (1.8-7.8); Neutrophils % 68.1 % (37.0-80.0); Platelet Count 367 K/mm3 (142-424); Red Blood Count 4.69 M/mm3 (4.20-5.40); Red Cell Distribution Width 15.2 % (11.5-17.5); White Blood Count 12.2 K/mm3 (4.8-10.8)
[2019-06-06 13:23] LABS: Anion Gap 14.3 mEq/L (5-15)
--- NOTE | 2019-06-06 15:49 | Pharmacy Consult Notes ---
[facility] Pharmacy VTE Monitoring - Patient Demographics Admission date: 06/06/19 Report Date: 06/06/19 Time: 15:49 Allergies/Adverse Reactions: Patient Allergies celecoxib [From CELEBREX] Allergy (Unknown, Verified 08/02/17 14:37) Height: 1.57 m Weight: 81.703 kg - VTE Risk Labs: VTE Related Lab Results Hgb 11.7 g/dL (12.2-16.2) L 06/06/19 13:00 Hct 38.3 % (37.0-47.0) 06/06/19 13:00 Plt Count 367 K/mm3 (142-424) 06/06/19 13:00 BUN 11 mg/dL (7-18) 06/06/19 13:00 Creatinine 0.84 mg/dL (0.55-1.02) 06/06/19 13:00 Estimated Creat Clear 59 mL/min (50-200) 06/06/19 13:00 Clinical Trial Participant: No - Prophylaxis VTE Prophylaxis Ordered?: Yes Types of VTE Prophylaxis: TEDS Knee High
--- NOTE | 2019-06-06 17:23 | History & Physical Report ---
*Admission Date: 06/06/19 *Chief complaint: Shortness of breath *History of present illness: 79-year-old female with asthma presented to the emergency department today with persistent shortness of breath and cough with scant yellow sputum production. Patient been seen in the office 1 week prior and treated with oral antibiotics, intramuscular corticosteroid injection, home breathing treatments. She returned to the office after having improved very little. In the office her O2 sat was 83% on room air with mild increased work of breathing. Lung exam had diffuse rhonchi with expiratory wheezes. Decision was made to admit her to the hospital for treatment of asthma exacerbation with hypoxia and with possible underlying infection . [facility] History I have reviewed the patient's past medical history: Yes Medical History: Reports:: Chronic Obstructive Pulmonary Disease (COPD), Hypertension, Peripheral Vascular Disease Denies:: Cancer, Diabetes Mellitus Type 1, Diabetes Mellitus Type 2, MRSA *Have you ever received a pneumonia vaccine?: No *Have you received a flu vaccine this season?: No Other Medical History: Reports: Cataracts (surgical repair bilat), Other Laterality Cases: Left: Arthroscopy Knee, Right: Total Hip Replacement, Bilateral: Tonsillectomy Other Surgeries: Yes: Appendectomy, Cholecystectomy, Hysterectomy-Total, Other Amputation: No Fractures: (NECK,ARM,HIP) - *Social History Smoking Status: Never smoker Alcohol Intake: never Alcohol Intake Frequency:: other Substance Use Type: denies use *Occupational Status:: retired Housing: house Household Members: none *Travel in the last 8 weeks: None Family Hx:: Unable to obtain Review of Systems - Review of Systems Review of systems:: pertinent systems reviewed and negative unless documented below - Constitutional Reports weakness, Denies body ache(s), Denies chills, Denies fever(s) - *Cardiovascular Denies chest pain, Denies chest pain at rest - *Respiratory Reports change in phlegm color, Reports chest congestion, Reports cough, Reports shortness of breath, Reports shortness of breath with activity - *Gastrointestinal Denies abdominal pain Meds Home Medications Medication Instructions Recorded Confirmed Type Donepezil HCl [Aricept 10mg 10 mg PO HS 06/02/17 06/06/19 History tablet] Duloxetine HCl [Cymbalta] 60 mg PO HS 06/02/17 06/06/19 History Esomeprazole Magnesium [Nexium] 40 mg PO DAILY 06/02/17 06/06/19 History Folic Acid 1 mg PO DAILY 06/02/17 06/06/19 History Metoprolol Succinate [Toprol XL 50 mg PO HS 06/02/17 06/06/19 History 50mg Tablet] Ropinirole HCl 2 mg PO 1600 06/02/17 06/06/19 History Oxycodone HCl [Oxycodone (IR) 10mg 10 mg PO TIDP PRN 06/16/17 06/06/19 History Tab] Amlodipine Besylate 5 mg PO DAILY 06/07/18 06/06/19 History Simvastatin 20 mg PO HS 06/07/18 06/06/19 History Trazodone HCl 50 mg PO HSP PRN 06/07/18 06/06/19 History Zolpidem Tartrate [Zolpidem 6.25 mg PO HSP PRN 06/07/18 06/06/19 History Tartrate ER] Meclizine HCl [Meclizine 12.5mg 1 tab PO BIDP PRN 12/22/18 06/06/19 History Tab] Allergies Allergy/AdvReac Type Severity Reaction Status Date / Time celecoxib [From CELEBREX] Allergy Unknown Verified 08/02/17 14:37 Exam Vital signs and Labs for Last 24 Hours: Temp Pulse Resp BP Pulse Ox 98.1 F 70 22 151/88 H 96 06/06/19 16:00 06/06/19 16:00 06/06/19 16:00 06/06/19 16:00 06/06/19 16:00 Laboratory Results - last 24 hr 06/06/19 13:00: WBC 12.2 H, RBC 4.69, Hgb 11.7 L, Hct 38.3, MCV 81.5, MCH 24.8 L , MCHC 30.5 L, RDW 15.2, Plt Count 367, MPV 8.1, Neut % (Auto) 68.1, Lymph % (Auto) 18.1, [place] % (Auto) 6.4, Eos % (Auto) 6.7, Baso % (Auto) 0.6, Neut # (Auto) 8.3 H, Lymph # (Auto) 2.2, [place] # (Auto) 0.8, Eos # (Auto) 0.8 H, Baso # (Auto) 0.1 06/06/19 13:00: Sodium 137, Potassium 4.3, Chloride 103, Carbon Dioxide 24, Anion Gap 14.3, BUN 11, Creatinine 0.84, Estimated Creat Clear 59, Estimated GFR 65, Est GFR ( Amer) 79, Glucose 111 H, Calcium 9.0 I & O for Last 24 hours: Intake & Output 06/04/19 06/05/19 06/06/19 06/07/19 11:59 11:59 11:59 11:59 Output Total 240 / 240 Balance -240 / -240 Weight 180 lb 2 oz Narrative: Patient has mild increased work of breathing. ENT exam is normal. Lungs have diffuse rhonchi and expiratory wheezes without rales. Heart has a rapid rate and rhythm. Abdomen is soft, nontender, nondistended. Extremities are warm to the touch and there is no pedal edema. Neurologically there is no deficit and patient is oriented to person and place. Assessment and Plan (1) COPD exacerbation Current visit: Yes Status: Acute Category: Medical Code(s): J44.1 - Chronic obstructive pulmonary disease with (acute) exacerbation (2) Lower lobe pneumonia Current visit: Yes Status: Acute Category: Medical Code(s): J18.9 - Pneumonia, unspecified organism - Assessment and plan all Dx Assessment and Plan for all problems:: 1. Patient has responded well to supplemental oxygen with increase in O2 sats to 94%. Continue supplemental oxygen along with intravenous steroids, aerosols and now that chest x-ray has showed a left lower lobe pneumonia patient will be started on Rocephin and azithromycin with repeat CBC in a.m. Sputum and blood cultures will be collected. Home medications have been ordered
--- NOTE | 2019-06-07 07:20 | Progress Note ---
Internal Medicine - PN: Subj *Date: 06/07/19 *Time: 07:18 Interval history: Patient claims she feels better and believes she can go home today. She slept well overnight. She is responded well to supplemental oxygen, nebs and steroids. Her chest x-ray was suspicious for left lower lobe pneumonia. Exam Vital signs and Labs for Last 24 Hours: Temp Pulse Resp BP Pulse Ox 97.8 F 76 18 117/81 89 L 06/07/19 04:00 06/07/19 06:21 06/07/19 04:00 06/07/19 04:00 06/07/19 06:21 Laboratory Results - last 24 hr 06/06/19 13:00: WBC 12.2 H, RBC 4.69, Hgb 11.7 L, Hct 38.3, MCV 81.5, MCH 24.8 L , MCHC 30.5 L, RDW 15.2, Plt Count 367, MPV 8.1, Neut % (Auto) 68.1, Lymph % (Auto) 18.1, [place] % (Auto) 6.4, Eos % (Auto) 6.7, Baso % (Auto) 0.6, Neut # (Auto) 8.3 H, Lymph # (Auto) 2.2, [place] # (Auto) 0.8, Eos # (Auto) 0.8 H, Baso # (Auto) 0.1 06/06/19 13:00: Sodium 137, Potassium 4.3, Chloride 103, Carbon Dioxide 24, Anion Gap 14.3, BUN 11, Creatinine 0.84, Estimated Creat Clear 59, Estimated GFR 65, Est GFR ( Amer) 79, Glucose 111 H, Calcium 9.0 06/06/19 16:56: Mycoplasma pneumon IgM Non-reactive I & O for Last 24 hours: Intake & Output 06/04/19 06/05/19 06/06/19 06/07/19 11:59 11:59 11:59 11:59 Intake Total 420 / 420 Output Total 240 / 240 Balance 180 / 180 Weight 180 lb 2 oz 181 lb 3 oz Microbiology Reports for the Last 24 Hours: Microbiology 06/06/19 18:40 Sputum - Expectorated Sputum Gram Stain - Final Narrative: On exam patient has improved aeration but still has some expiratory rhonchi with occasional wheeze. There are no rales in the left base. Heart has a regular rate and rhythm. Assessment and Plan (1) COPD exacerbation Current visit: Yes Status: Acute Category: Medical Code(s): J44.1 - Chronic obstructive pulmonary disease with (acute) exacerbation (2) Lower lobe pneumonia Current visit: Yes Status: Acute Category: Medical Code(s): J18.9 - Pneumonia, unspecified organism - Assessment and plan all Dx Assessment and Plan for all problems:: 1. Decrease steroid dosing today. Reassess patient this afternoon. Check room air sat
[2019-06-07 20:23] LABS: ABG Base Excess -1.2 mmol/L (-2.4-2.3); ABG HCO3 22.8 mmhg (22.0-26.0); ABG Oxygen Saturation 95 % (90-100); ABG PCO2 33.7 mmhg (35.0-45.0); ABG PH 7.45 mmol/L (7.35-7.45); ABG PO2 73.6 mmhg (80-100); ABG TCO2 23.9 mmhg (23-27)
[2019-06-07 20:24] LABS: Allen's Test Non Applicable
[2019-06-08 00:34] LABS: Microscopic, Urine URINE MICROSCOPIC (MICROSCOPIC)
[2019-06-08 00:35] LABS: Appearance,Urine CLEAR (Clear); Bilirubin,Urine Negative (Negative); Blood, Urine Negative (Negative); Color,Urine YELLOW (Yellow); Glucose,Urine (UA) Negative (Negative); Ketones,Urine Negative (Negative); Leukocyte Esterase,Urine Negative (Negative); Protein,Urine Negative (Negative); Urobilinogen,Urine 0.2 EU/dl (0.2)
[2019-06-08 00:43] LABS: Bacteria,Urine Trace /lpf; Squamous Epithelial Cell,Urine Occasional #/hpf (0-5); WBC,Urine Occasional #/hpf (0-3)
--- NOTE | 2019-06-08 07:18 | Progress Note ---
Internal Medicine - PN: Subj *Date: 06/08/19 *Time: 07:15 Interval history: Patient became agitated and paranoid late yesterday evening accusing family members who were present of having stolen her personal possessions. She apparently also was demanding to go home. She was given a dose of Ativan to sedate her. Patient subsequently slept rather well overnight but this morning is experiencing more wheezing and shortness of breath. Exam Vital signs and Labs for Last 24 Hours: Temp Pulse Resp BP Pulse Ox 98.4 F 91 H 22 171/83 H 94 L 06/08/19 04:00 06/08/19 06:45 06/08/19 04:00 06/08/19 04:00 06/08/19 06:45 Laboratory Results - last 24 hr 06/07/19 19:46: Specimen Source Left brachial, O2 % 28%, nc, ABG pH 7.45, ABG pCO2 33.7 L, ABG pO2 73.6 L, ABG HCO3 22.8, ABG Total CO2 23.9, ABG O2 Saturation 95, ABG Base Excess -1.2, Triston Test Non applicable 06/08/19 00:27: Urine Color Yellow, Urine Appearance Clear, Urine pH 7.0, Ur Specific Conrad 1.010, Urine Protein Negative, Urine Glucose (UA) Negative, Urine Ketones Negative, Urine Blood Negative, Urine Nitrate Negative, Urine Bilirubin Negative, Urine Urobilinogen 0.2, Ur Leukocyte Esterase Negative, Urine WBC Occasional, Ur Squamous Epith Cells Occasional, Urine Bacteria Trace I & O for Last 24 hours: Intake & Output 06/05/19 06/06/19 06/07/19 06/08/19 11:59 11:59 11:59 11:59 Intake Total 780 / 780 240 / 240 Output Total 240 / 240 100 / 100 Balance 540 / 540 140 / 140 Weight 180 lb 2 oz 181 lb 3 oz 179 lb 6 oz Microbiology Reports for the Last 24 Hours: Microbiology 06/06/19 18:40 Sputum - Expectorated Sputum Gram Stain - Final 06/06/19 18:40 Sputum - Expectorated Sputum Sputum Culture - Preliminary Narrative: Patient is resting in bed asleep and supplemental oxygen is in place and she appears comfortable immediately upon awakening patient begins mouth breathing with loud audible expiratory wheezes. She could not be coached through pursed lip breathing. She awakened easily. She is oriented to person and place. Lung exam reveals diffuse rhonchi and wheezing heard both anteriorly and posteriorly. Heart has a regular rate and rhythm. Assessment and Plan (1) COPD exacerbation Current visit: Yes Status: Acute Category: Medical Code(s): J44.1 - Chronic obstructive pulmonary disease with (acute) exacerbation (2) Lower lobe pneumonia Current visit: Yes Status: Acute Category: Medical Code(s): J18.9 - Pneumonia, unspecified organism - Assessment and plan all Dx Assessment and Plan for all problems:: Patient has experienced a setback. She will continue IV steroids and aerosols along with IV antibiotics to treat her pneumonia. Encourage patient to ambulate today. Patient would benefit from family staying with her through the night so that hopefully need for sedation can be avoided
[2019-06-08 12:11] LABS: Basophils % 0.1 % (0.1-2.0); Hematocrit 35.7 % (37.0-47.0); Hemoglobin 10.9 g/dL (12.2-16.2); Lymphocytes # 0.7 K/mm3 (0.7-4.5); Lymphocytes % 6.2 % (10-50); Mean Corpuscular HGB Conc 30.5 g/dL (31.8-35.4); Mean Corpuscular Volume 80.7 fl (81-99); Mean Platelet Volume 7.8 fl (7.4-10.4); Monocytes # 0.4 K/mm3 (0.1-1.0); Monocytes % 3.8 % (1.7-9.3); Neutrophils # 9.6 K/mm3 (1.8-7.8); Neutrophils % 89.8 % (37.0-80.0); Platelet Count 424 K/mm3 (142-424); Red Blood Count 4.42 M/mm3 (4.20-5.40); Red Cell Distribution Width 14.9 % (11.5-17.5); White Blood Count 10.6 K/mm3 (4.8-10.8)
[2019-06-08 12:17] LABS: Anion Gap 13.6 mEq/L (5-15); Calcium 8.3 mg/dL (8.5-10.1)
[2019-06-08 16:10] LABS: Anisocytosis 1+; Hypochromasia 1+; Lymphocytes % 7 % (10-50); Monocytes % 2 % (2-9); Neutrophils % 91 % (42-76); Total Cells Counted 100
--- NOTE | 2019-06-09 08:50 | Progress Note ---
Internal Medicine - PN: Subj *Date: 06/09/19 *Time: 08:49 Interval history: Overnight patient did well, ate well. Much more alert per nursing staff. Exam Vital signs and Labs for Last 24 Hours: Temp Pulse Resp BP Pulse Ox 97.8 F 78 18 128/68 92 L 06/09/19 04:00 06/09/19 07:06 06/09/19 04:00 06/09/19 04:00 06/09/19 07:06 Laboratory Results - last 24 hr 06/08/19 11:38: WBC 10.6, RBC 4.42, Hgb 10.9 L, Hct 35.7 L, MCV 80.7 L, MCH 24.6 L, MCHC 30.5 L, RDW 14.9, Plt Count 424, MPV 7.8, Neut % (Auto) 89.8 H, Lymph % (Auto) 6.2 L, [place] % (Auto) 3.8, Eos % (Auto) 0.0 L, Baso % (Auto) 0.1, Neut # (Auto) 9.6 H, Lymph # (Auto) 0.7, [place] # (Auto) 0.4, Eos # (Auto) 0.0, Baso # (Auto) 0.0, Total Counted 100, Neutrophils % (Manual) 91 H, Lymphocytes % (Manual) 7 L, Monocytes % (Manual) 2, Platelet Estimate Normal, Hypochromasia 1+, Poikilocytosis 1+, Anisocytosis 1+, Microcytosis 1+, Acanthocytes (Spur) 1+ 06/08/19 11:38: Sodium 138, Potassium 3.6, Chloride 104, Carbon Dioxide 24, Anion Gap 13.6, BUN 18 D, Creatinine 1.00, Estimated Creat Clear 59, Estimated GFR 53 L, Est GFR ( Amer) 65, Glucose 151 H, Calcium 8.3 L I & O for Last 24 hours: Intake & Output 06/06/19 06/07/19 06/08/19 06/09/19 11:59 11:59 11:59 11:59 Intake Total 780 / 780 720 / 720 570 / 570 Output Total 240 / 240 100 / 100 300 / 300 Balance 540 / 540 620 / 620 270 / 270 Weight 180 lb 2 oz 181 lb 3 oz 179 lb 6 oz 182 lb 1 oz Microbiology Reports for the Last 24 Hours: Microbiology 06/06/19 18:40 Sputum - Expectorated Sputum Gram Stain - Final 06/06/19 18:40 Sputum - Expectorated Sputum Sputum Culture - Preliminary Gram Positive Cocci 06/06/19 16:56 Blood Blood Culture - Preliminary NO GROWTH AFTER 48 HOURS 06/06/19 16:56 Blood Blood Culture - Preliminary NO GROWTH AFTER 48 HOURS Narrative: Patient is pleasant, talkative. Able to sit up in bed under her own power. Lungs have very minimal rhonchi in both bases. Heart rate regular. No edema. Abdomen soft, obese. No JVD. Oropharynx clear Assessment and Plan (1) COPD exacerbation Current visit: Yes Status: Acute Category: Medical Code(s): J44.1 - Chronic obstructive pulmonary disease with (acute) exacerbation (2) Lower lobe pneumonia Current visit: Yes Status: Acute Category: Medical Code(s): J18.9 - Pneumonia, unspecified organism - Assessment and plan all Dx Assessment and Plan for all problems:: Overall patient is improving. She will mobilize today, eat her meals in the chair, try to walk around the room in preparation for discharge tomorrow.
--- NOTE | 2019-06-09 11:05 | Progress Note ---
Internal Medicine - PN: Subj *Date: 06/09/19 *Time: 11:05 Exam Vital signs and Labs for Last 24 Hours: Temp Pulse Resp BP Pulse Ox 97.8 F 66 20 129/47 L 92 L 06/09/19 08:00 06/09/19 08:00 06/09/19 09:19 06/09/19 08:00 06/09/19 09:19 Laboratory Results - last 24 hr 06/08/19 11:38: WBC 10.6, RBC 4.42, Hgb 10.9 L, Hct 35.7 L, MCV 80.7 L, MCH 24.6 L, MCHC 30.5 L, RDW 14.9, Plt Count 424, MPV 7.8, Neut % (Auto) 89.8 H, Lymph % (Auto) 6.2 L, [place] % (Auto) 3.8, Eos % (Auto) 0.0 L, Baso % (Auto) 0.1, Neut # (Auto) 9.6 H, Lymph # (Auto) 0.7, [place] # (Auto) 0.4, Eos # (Auto) 0.0, Baso # (Auto) 0.0, Total Counted 100, Neutrophils % (Manual) 91 H, Lymphocytes % (Manual) 7 L, Monocytes % (Manual) 2, Platelet Estimate Normal, Hypochromasia 1+, Poikilocytosis 1+, Anisocytosis 1+, Microcytosis 1+, Acanthocytes (Spur) 1+ 06/08/19 11:38: Sodium 138, Potassium 3.6, Chloride 104, Carbon Dioxide 24, Anion Gap 13.6, BUN 18 D, Creatinine 1.00, Estimated Creat Clear 59, Estimated GFR 53 L, Est GFR ( Amer) 65, Glucose 151 H, Calcium 8.3 L I & O for Last 24 hours: Intake & Output 06/06/19 06/07/19 06/08/19 06/09/19 23:59 23:59 23:59 23:59 Intake Total 420 / 420 600 / 600 1005 / 1005 405 / 405 Output Total 240 / 240 400 / 400 Balance 180 / 180 600 / 600 605 / 605 405 / 405 Weight 81.703 kg 82.185 kg 81.363 kg 82.582 kg Microbiology Reports for the Last 24 Hours: Microbiology 06/06/19 18:40 Sputum - Expectorated Sputum Gram Stain - Final 06/06/19 18:40 Sputum - Expectorated Sputum Sputum Culture - Preliminary Gram Positive Cocci 06/06/19 16:56 Blood Blood Culture - Preliminary NO GROWTH AFTER 48 HOURS 06/06/19 16:56 Blood Blood Culture - Preliminary NO GROWTH AFTER 48 HOURS Assessment and Plan (1) COPD exacerbation Current visit: Yes Status: Acute Category: Medical Code(s): J44.1 - Chronic obstructive pulmonary disease with (acute) exacerbation (2) Lower lobe pneumonia Current visit: Yes Status: Acute Category: Medical Code(s): J18.9 - Pneumonia, unspecified organism The patient's infection will respond to the chosen ABx?: Yes Is the patient receiving the right drug, dose, and route?: Yes Could a more targeted ABx be ordered?: No (WBC NORMALIZING AND PATIENT AFEBRILE)
--- NOTE | 2019-06-10 07:15 | Discharge Summary ---
General - General Admission date:: 06/06/19 Discharge date: 06/10/19 HPI HPI: 79-year-old female with asthma presented to the emergency department today with persistent shortness of breath and cough with scant yellow sputum production. Patient been seen in the office 1 week prior and treated with oral antibiotics, intramuscular corticosteroid injection, home breathing treatments. She returned to the office after having improved very little. In the office her O2 sat was 83% on room air with mild increased work of breathing. Lung exam had diffuse rhonchi with expiratory wheezes. Decision was made to admit her to the hospital for treatment of asthma exacerbation with hypoxia and with possible underlying infection . Hospital Course Hospital Course: Patient was admitted and started on aerosols and steroids. When chest x-ray confirmed the presence of a left lower lobe pneumonia patient was started on Rocephin and azithromycin. Patient improved rapidly over the initial 24 hours of admission with near resolution of rhonchi and wheezing. She did however still require supplemental oxygen. On the evening of the patient developed some mental status changes with paranoid behaviors that required medical sedation with a small oral dose of lorazepam. On the following morning patient's lung exam had worsened and she once again had diffuse bilateral rhonchi and wheezing with increased work of breathing. Patient was continued on aerosols, steroids, antibiotics. Over the following 48 hours patient improved. On the morning of June 10 patient was moving air well with only faint rhonchi on expiration. Patient was discharged home. She will follow-up in the office on Monday Objective Vital signs: Temp Pulse Resp BP Pulse Ox 97.9 F 98 H 21 140/61 96 06/10/19 04:00 06/10/19 05:31 06/10/19 04:00 06/10/19 04:00 06/10/19 05:31 no acute distress - *Routine Respiratory Exam Present: rhonchi (Expiration) - *Routine Cardiovascular Exam Present: RRR, Normal S1, Normal S2 Results Labs on day of discharge: Preliminary micro results at discharge 06/06/19 18:40 Sputum Culture - Preliminary Sputum - Expectorated Sputum Gram Positive Cocci 06/06/19 16:56 Blood Culture - Preliminary Blood NO GROWTH AFTER 48 HOURS 06/06/19 16:56 Blood Culture - Preliminary Blood NO GROWTH AFTER 48 HOURS DS: Diagnosis - Discharge Diagnosis (1) Lower lobe pneumonia Status: Acute (2) COPD exacerbation Status: Acute Discharge Plan - Patient Discharge Instructions ACTIVITY: Continue current activity DIET: continue same diet Patient Instructions: Pneumonia-Adult, DI for Pneumonia -- Adult - Follow up Plan Follow up with: Kiko Pitt MD [Primary Care Provider] - 06/14/19 Disposition: Home, Self-Shelter Medications: Home Medications Medication Instructions Recorded Confirmed Type Donepezil HCl [Aricept 10mg 10 mg PO HS 06/02/17 06/06/19 History tablet] Duloxetine HCl [Cymbalta] 60 mg PO HS 06/02/17 06/06/19 History Esomeprazole Magnesium [Nexium] 40 mg PO DAILY 06/02/17 06/06/19 History Folic Acid 1 mg PO DAILY 06/02/17 06/06/19 History Metoprolol Succinate [Toprol XL 50 mg PO HS 06/02/17 06/06/19 History 50mg Tablet] Ropinirole HCl 2 mg PO 1600 06/02/17 06/06/19 History Oxycodone HCl [Oxycodone (IR) 10mg 10 mg PO TIDP PRN 06/16/17 06/06/19 History Tab] Amlodipine Besylate 5 mg PO DAILY 06/07/18 06/06/19 History Simvastatin 20 mg PO HS 06/07/18 06/06/19 History Trazodone HCl 50 mg PO HSP PRN 06/07/18 06/06/19 History Zolpidem Tartrate [Zolpidem 6.25 mg PO HSP PRN 06/07/18 06/06/19 History Tartrate ER] Meclizine HCl [Meclizine 12.5mg 12.5 mg PO BIDP PRN 12/22/18 06/07/19 History Tab] Amoxicillin/Potassium Clav 1 tab PO Q12H #14 tab 06/07/19 Rx [Augmentin 875-125 Tablet] Baclofen [Lioresal 10mg tablet] 10 mg PO DIRECTED 06/07/19 06/07/19 History predniSONE [Prednisone 20mg 20 mg PO DAILY #5 tab 06/10/19 Rx Tab] Prescriptions/Medication Reconciliation: New Amoxicillin/Potassium Clav [Augmentin 875-125 Tablet] 1 tab PO Q12H #14 tab predniSONE [Prednisone 20mg Tab] 20 mg PO DAILY #5 tab Continued Esomeprazole Magnesium [Nexium] 40 mg PO DAILY Folic Acid 1 mg PO DAILY Ropinirole HCl 2 mg PO 1600 Duloxetine HCl [Cymbalta] 60 mg PO HS Donepezil HCl [Aricept 10mg tablet] 10 mg PO HS Oxycodone HCl [Oxycodone (IR) 10mg Tab] 10 mg PO TIDP PRN PRN Reason: Moderate Pain Simvastatin 20 mg PO HS Amlodipine Besylate 5 mg PO DAILY Trazodone HCl 50 mg PO HSP PRN PRN Reason: sleep Zolpidem Tartrate [Zolpidem Tartrate ER] 6.25 mg PO HSP PRN PRN Reason: Sleep Meclizine HCl [Meclizine 12.5mg Tab] 12.5 mg PO BIDP PRN PRN Reason: Vertigo Baclofen [Lioresal 10mg tablet] 10 mg PO DIRECTED Metoprolol Succinate [Toprol XL 50mg Tablet] 50 mg PO HS - Problem Reconciliation Problems Reviewed?: Yes
== END 2019-06-10 10:34 | disposition home or self-care (01) | DRG 190 ==
LOC: 2ND 11:42
PROVIDERS: ADMIT Family Medicine; ATTEND Family Medicine
CPT/HCPCS: 36415; 71020; 71046; 80048; 81001; 82803; 85007; 85025; 86738; 87040; 87070; 87077; 87205; 90686; 94640; 94761; J0456; J2405

== ENCOUNTER → 2019-08-09 12:21 | Outpatient (CLI) | payer MEDICARE, OTHER, SELFPAY ==
[2019-08-09 15:01] LABS: Chloride 99 mmol/L (98-107); Sodium 134 mmol/L (136-145)
[2019-08-09 15:04] LABS: Alanine Aminotransferase 15 U/L (12-78); Albumin Level 3.7 g/dl (3.5-5.0); Albumin/Globulin Ratio 1.4 (1.1-1.8); Alkaline Phosphatase 60 U/L (38-126); Aspartate Amino Transferase 29 U/L (14-36); Bilirubin,Total 0.3 mg/dl (0.2-1.3); Blood Urea Nitrogen 14 mg/dl (7-17); Carbon Dioxide 28 mmol/L (22.0-30.0); Estimated Glomerular Filt Rate 60 ml/min (>60); GFR (African American) 73 ML/MIN (>60); Globulin 2.6 g/dL (1.3-3.2); Total Protein,Serum 6.3 g/dl (6.3-8.2)
[2019-08-09 15:05] LABS: Calcium 9.5 mg/dl (8.4-10.2); Glucose 113 mg/dl (74-100)
[2019-08-10 07:38] LABS: Vitamin D 25 Hydroxy 31.4 ng/mL (30.0-100.0)
== END ==
PROVIDERS: Visit Provider Internal Medicine Rheumatology
DX: M81.0 Age-related osteoporosis without current pathological fracture (principal)
CPT/HCPCS: 36415; 80053; 82652

== ENCOUNTER 2019-10-11 22:06 | Observation (INO) | payer MEDICARE, OTHER, SELFPAY ==
[2019-10-11 22:07] VITALS: BP 139/76; PULSE 67; RESP 16; TEMP 36.8; O2SAT 98; BMI 31.8
--- NOTE | 2019-10-11 22:08 | ECG_ITS ---
APPROVED REPORT Exam: Resting ECG HR:56 bpm ECG Measurements Heart Rate 56 AXES MO 174 P 21 QRSd 86 QRS 2 QT 484 T 35 QTc 467 <Conclusion> Sinus bradycardia Otherwise normal ECG Electronically signed by : Kiko Simpson, 10/13/2019 07:09:57
--- NOTE | 2019-10-11 22:32 | CT_ITS ---
PROCEDURE: CT ABDOMEN PELVIS W CON CLINICAL INDICATION: fall with nausea Blunt trauma, generalized abdominal pain following trauma, nausea and weakness COMPARISON: ABDPELW CT abdomen pelvis w con from 06/23/2017 TECHNIQUE: IV Contrast: 75ML OPTIRAY 350 Oral Contrast none Axial images obtained with sagittal and coronal reformats. All CT scans at the facility use one or more dose reduction, viz: automated exposure control, ma/kV adjustment per patient size (including targeted exams where dose is matched to indication, i.e. head), or iterative reconstruction technique. FINDINGS: LOWER THORAX: Mild atelectatic changes ABDOMEN & PELVIS: There has been a prior cholecystectomy with diffuse intra and extrahepatic biliary ductal dilatation. The common bile duct measures up to 1.4 cm. The pancreatic duct does not appear dilated. The spleen, adrenal glands, and pancreas have an unremarkable appearance. No renal or ureteral calculi. There is mild prominence of the right renal pelvis which was not present on the previous exam.. No intestinal obstruction or free air. There is a mild amount of retained colonic feces. No evidence of appendicitis or diverticulitis. There is a small umbilical hernia containing fat. There are post hysterectomy changes. No abnormal fluid collection. There is some mild thickening of the urinary bladder wall nonspecific there are degenerative changes in the spine and hips. IMPRESSION: 1. Prior cholecystectomy with intra and extrahepatic biliary ductal dilatation slightly greater than when compared to the previous exam. The ductal dilatation is greater than what 1 would expect for post cholecystectomy changes. Consider MRCP for further evaluation. 2. Mild prominence of the right renal pelvis not apparent on the previous exam. No definite ureteral calculi parent 3. Minimal bladder wall thickening nonspecific and may be due to incomplete distension or mild cystitis 4. Colonic diverticulosis without diverticulitis with mild amount of retained colonic feces Dictated by: Triston Gaytan MD 10/12/2019 07:52 Electronically signed by Triston Gaytan MD in [place] 10/12/2019 07:52
--- NOTE | 2019-10-11 22:33 | XR_ITS ---
PROCEDURE: XR CHEST AP CLINICAL HISTORY: fall Posttraumatic pain, trauma protocol, trauma alert COMPARISON: CXR2 XR chest AP from 06/06/2018 XR CHEST AP from 04/16/2019 XR CHEST PORTABLE from 05/13/2019 XR CHEST 2V from 06/06/2019 CT ABDOMEN PELVIS W CON from 10/11/2019 FINDINGS: Cardiomegaly without failure. There are multiple old bilateral rib fractures. Nodular opacities noted in the left mid lower lung zone which may be due to callus formation on old rib fractures. No lobar consolidation or collapse. IMPRESSION: Cardiomegaly with old bilateral rib fractures Dictated by: Triston Gaytan MD 10/12/2019 06:50 Electronically signed by Triston Gaytan MD in [place] 10/12/2019 06:50
--- NOTE | 2019-10-11 22:33 | XR_ITS ---
PROCEDURE: XR HUMERUS RT CLINICAL INDICATION: fall Posttraumatic pain, fall with injury and pain COMPARISON: XR CHEST AP from 10/11/2019 FINDINGS: No fracture or dislocation. No lytic or blastic change. There is normal mineralization. Old distal clavicle fracture. Severe osteoarthritis with suspected avascular necrosis of the right humeral head. There are subarticular cystic changes of the humeral head is well. Other findings:None. 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 No acute fracture Dictated by: Triston Gaytan MD 10/12/2019 06:38 Electronically signed by Triston Gaytan MD in [place] 10/12/2019 06:38
--- NOTE | 2019-10-11 22:33 | XR_ITS ---
PROCEDURE: XR PELVIS 1-2V CLINICAL INDICATION: fall Posttraumatic pain COMPARISON: XR PELVIS 1-2V from 04/16/2019 TECHNIQUE: XR Pelvis AP View FINDINGS: No acute fracture. Mild osteoarthritis of the hips. Contrast is present in the urinary bladder from recent CT. There is mild hypertrophic changes of the greater trochanter on the right IMPRESSION: No acute findings. Dictated by: Triston Gaytan MD 10/12/2019 06:36 Electronically signed by Triston Gaytan MD in [place] 10/12/2019 06:36
--- NOTE | 2019-10-11 22:33 | XR_ITS ---
PROCEDURE: XR SHOULDER RT MIN 2V CLINICAL INDICATION: fall Posttraumatic pain COMPARISON: SHOU3R [id number] VIEWS from 09/17/2012 SHOU3R [id number] VIEWS from 03/12/2013 SHOULDCMRT XR shoulder RT min 2V from 09/05/2017 [id number] XR shoulder LT min 2V from 09/05/2017 FINDINGS: There are severe osteoarthritic changes of the right shoulder with loss of the subacromial space and high-riding humeral head consistent with rotator cuff tear. There is sclerosis of the subcortical region of the humeral head with some mild cortical regularity suspicious for avascular necrosis. There is an old fracture of the distal clavicle. No acute fracture or dislocation is evident. IMPRESSION: Severe osteoarthritic changes with possible avascular necrosis and with high-riding humeral head suggesting rotator cuff tear an old distal clavicle fracture No acute fracture Dictated by: Triston Gaytan MD 10/12/2019 06:34 Electronically signed by Triston Gaytan MD in [place] 10/12/2019 06:34
[2019-10-11 22:36] VITALS: BP 134/52; PULSE 78; RESP 18; O2SAT 96
[2019-10-11 22:39] LABS: Microscopic, Urine URINE MICROSCOPIC (MICROSCOPIC)
[2019-10-11 22:43] LABS: Basophils # 0.1 K/mm3 (0-0.2); Basophils % 0.6 % (0.1-2.0); Eosinophils # 0.3 K/mm3 (0.0-0.4); Eosinophils % 3.5 % (0.1-12.0); Hematocrit 31.9 % (37.0-47.0); Lymphocytes # 3.2 K/mm3 (0.7-4.5); Mean Corpuscular HGB Conc 31.2 g/dL (31.8-35.4); Mean Corpuscular Hemoglobin 24.5 pg (27.0-31.2); Mean Corpuscular Volume 78.3 fl (81-99); Monocytes # 0.6 K/mm3 (0.1-1.0); Monocytes % 7.2 % (1.7-9.3); Neutrophils % 49.7 % (37.0-80.0); Platelet Count 281 K/mm3 (142-424); Red Blood Count 4.08 M/mm3 (4.20-5.40); Red Cell Distribution Width 18.3 % (11.5-17.5); White Blood Count 8.1 K/mm3 (4.8-10.8)
[2019-10-11 22:44] LABS: Chloride 99 mmol/L (98-107); Potassium 4.4 mmoL/L (3.5-5.1); Sodium 134 mmol/L (136-145)
[2019-10-11 22:47] LABS: Blood Urea Nitrogen 18 mg/dl (7-17); Creatinine Clearance Estimated 57 mL/min (50-200); Estimated Glomerular Filt Rate 60 ml/min (>60); GFR (African American) 73 ML/MIN (>60)
[2019-10-11 22:48] LABS: Anion Gap 12.4 mEq/L (5-15); Calcium 8.9 mg/dl (8.4-10.2); Carbon Dioxide 27 mmol/L (22.0-30.0); Glucose 115 mg/dl (74-100)
[2019-10-11 23:02] LABS: Appearance,Urine CLEAR (Clear); Bilirubin,Urine Negative (Negative); Blood, Urine Negative (Negative); Color,Urine YELLOW (Yellow); Glucose,Urine (UA) Negative (Negative); Ketones,Urine Negative (Negative); Leukocyte Esterase,Urine Negative (Negative); Nitrate,Urine Negative (Negative); Protein,Urine Negative (Negative); Urobilinogen,Urine 0.2 EU/dl (0.2)
[2019-10-11 23:04] LABS: Troponin I < 0.01 ng/ml (0.00-0.034)
[2019-10-11 23:05] LABS: Amorphous Sediment,Urine Trace /lpf
--- NOTE | 2019-10-11 23:12 | CT_ITS ---
PROCEDURE: CT CERVICAL SPINE WO CON CLINICAL INDICATION: fall Neck pain following injury Neck injury with pain, contusion/abrasion or hematoma, cervical sprain/strain the COMPARISON: CT CERVICAL SPINE WO CON from 04/16/2019 TECHNIQUE: Axial images obtained with sagittal and coronal reformats. All CT scans at the facility use one or more dose reduction, viz: automated exposure control, ma/kV adjustment per patient size (including targeted exams where dose is matched to indication, i.e. head), or iterative reconstruction technique. Axial spiral CT scanning performed of the cervical spine beginning at the base of the skull and continuing to the upper T-spine. 3-D multiplanar reconstruction with 3-D manipulation of volumetric data set in image rendering was completed by the radiologist and/or technologist with the supervision of the radiologist on independent workstation. FINDINGS: There is an old fracture at the base of the dens. This is ununited. The fracture does not appear significantly displaced. There is multilevel cervical spondylosis with senescent changes. There is diffuse osteopenia C2-C3: Degenerative disc disease. C3-C4: Unremarkable. C4-C5: Mild left-sided foraminal narrowing from uncovertebral and facet hypertrophy. C5-C6: Degenerate disc disease with endplate hypertrophic change with bilateral foraminal narrowing C6-C7: Degenerate disc disease with mild bilateral foraminal narrowing. Degenerative changes upper thoracic spine. Lung apices are unremarkable. The trachea is deviated toward the right from prominent vascular ectasia IMPRESSION: 1. No acute fracture. 2. Old ununited fracture at the base of the dens 3. Cervical spondylosis with osteopenia Dictated by: Triston Gaytan MD 10/12/2019 07:41 Electronically signed by Triston Gaytan MD in [place] 10/12/2019 07:41
--- NOTE | 2019-10-11 23:12 | CT_ITS ---
PROCEDURE: CT HEAD/BRAIN WO CON CLINICAL INDICATION: fall Head injury with headache/pain, contusion, abrasion or hematoma Blunt trauma with contusion or hematoma, headache and stiff neck COMPARISON: CT HEAD/BRAIN WO CON from 04/16/2019 TECHNIQUE: Axial images obtained. All CT scans at the facility use one or more dose reduction, viz: automated exposure control, ma/kV adjustment per patient size (including targeted exams where dose is matched to indication, i.e. head), or iterative reconstruction technique. FINDINGS: No midline shift, mass effect, intracranial hemorrhage, hydrocephalus, or extra-axial fluid collection is evident. There is generalized atrophy with hypoattenuation of the periventricular white matter consistent with microangiopathic changes. The calvarium has an unremarkable appearance. No mastoid effusion. No sinus air-fluid level. IMPRESSION: No acute intracranial finding Dictated by: Triston Gaytan MD 10/12/2019 07:35 Electronically signed by Triston Gaytan MD in [place] 10/12/2019 07:35
--- NOTE | 2019-10-11 23:24 | HMH.EDFALL ---
ED Disposition Clinical Impression: Obesity (BMI 30-39.9) Syncope Qualifiers: Syncope type: unspecified Qualified Code(s): R55 - Syncope and collapse Disposition: Admitted as Observation Condition on Discharge: Good Referrals: Kiko Pitt MD [Primary Care Provider] - - Critical Care Critical Care Time: No Attestation: On 10/11/19, the high probability of a clinically significant, sudden or life threatening deterioration of the following system(s) required my full and direct attention, intervention and personal management. The time I documented below is in addition to time spent performing reported procedures but includes the following listed in this critical care notation. Medical Decision Making - Medical Records Medical records reviewed: Yes: I reviewed the patient's medical records. - Chidi Inquiry Pt receiving controlled substance: No Vital Signs: 10/11/19 22:07 10/11/19 22:36 10/12/19 00:27 Temperature 98.3 F Temperature Source Oral Pulse Rate [Left Radial] 67 78 61 Respiratory Rate 16 18 18 Blood Pressure [Right Arm] 139/76 134/52 L 142/73 H Blood Pressure Mean [Right Arm] 97 79 96 Blood Pressure Source [Right Arm] Automatic Cuff Blood Pressure Position [Right Arm] Sitting 02 Sat by Pulse Oximetry 98 96 98 Oxygen Delivery Method Room Air Room Air Room Air 10/12/19 00:50 Temperature Temperature Source Pulse Rate [Left Radial] 74 Respiratory Rate 18 Blood Pressure [Right Arm] 139/87 Blood Pressure Mean [Right Arm] 104 Blood Pressure Source [Right Arm] Blood Pressure Position [Right Arm] 02 Sat by Pulse Oximetry 96 Oxygen Delivery Method Room Air - Lab Data Lab results reviewed: Yes: I reviewed the patient's lab results. Lab Results 10/11/19 22:00: WBC 8.1, RBC 4.08 L, Hgb 10.0 L, Hct 31.9 L, MCV 78.3 L, MCH 24.5 L, MCHC 31.2 L, RDW 18.3 H, Plt Count 281, MPV 8.0, Neut % (Auto) 49.7, Lymph % (Auto) 39.0, [place] % (Auto) 7.2, Eos % (Auto) 3.5, Baso % (Auto) 0.6, Neut # (Auto) 4.0, Lymph # (Auto) 3.2, [place] # (Auto) 0.6, Eos # (Auto) 0.3, Baso # (Auto) 0.1 10/11/19 22:00: Sodium 134 L, Potassium 4.4, Chloride 99, Carbon Dioxide 27, Anion Gap 12.4, BUN 18 H, Creatinine 0.90, Estimated Creat Clear 57, Estimated GFR 60, Est GFR ( Amer) 73, Glucose 115 H, Calcium 8.9, Troponin I < 0.01 10/11/19 22:36: Urine Color Yellow, Urine Appearance Clear, Urine pH 6.0, Ur Specific [place] 1.010, Urine Protein Negative, Urine Glucose (UA) Negative, Urine Ketones Negative, Urine Blood Negative, Urine Nitrate Negative, Urine Bilirubin Negative, Urine Urobilinogen 0.2, Ur Leukocyte Esterase Negative, Urine WBC 3-5, Amorphous Sediment Trace Result diagrams: 10/11/19 22:00 10/11/19 22:00 Orders (Tests/Meds): ED MEDICATIONS Discontinued Medications Generic Name Dose Route Start Last Admin Trade Name Freq PRN Reason Stop Dose Admin Ioversol 75 ml 10/12/19 01:26 10/12/19 01:27 Rad-Optiray 350 100ml Vial IV 10/12/19 01:27 75 ml ONCE ONE Administration Protocol Sodium Chloride 10 ml 10/12/19 01:26 10/12/19 01:27 Rad-Saline Flush 10ml Syringe IV 10/12/19 01:27 10 ml ONCE ONE Administration ORDERS Category Date Time Status CT abdomen pelvis w con Stat Cat Scan 10/11/19 22:[address] cervical spine wo con Stat Cat Scan 10/11/19 23:[address] head/brain wo con Stat Cat Scan 10/11/19 23:12 Taken XR chest AP Stat Exams 10/11/19 22:33 Taken XR humerus RT Stat Exams 10/11/19 22:33 Taken XR pelvis 1-2V Stat Exams 10/11/19 22:33 Taken XR shoulder RT min 2V Stat Exams 10/11/19 22:33 Taken Troponin I Q3H Lab 10/12/19 01:45 Ordered Troponin I Q3H Lab 10/12/19 04:45 Ordered - Radiology Data #1 Image(s): Chest, Shoulder, Humerus, Pelvis Image Reviewed: Yes I reviewed the patient's radiology image Preliminary Findings: No Fracture Seen - CT Data CT Scan: Head, Abdomen, Pelvis Time Received: 01:[address] Reviewed: Yes: I have viewed
[2019-10-12] VITALS (8 sets, daily range): BP systolic 105–142; BP diastolic 50–87; PULSE 60–99; RESP 16–22; TEMP 36.4–36.9; O2SAT 92–98; BMI 32.0
--- NOTE | 2019-10-12 02:01 | PC.NURSE ---
patient arrived on floor via stretcher
[2019-10-12 02:57] LABS: Troponin I < 0.01 ng/ml (0.00-0.034)
--- NOTE | 2019-10-12 04:49 | PC.NURSE ---
Pt new admit this shift for syncope. Pt is A&Ox4 and has rested well since arrival. No c/o dizziness, SOA, N/V/D, or pain. NSR on telemetry. Pt was bathed this shift. She does have moments of incontinence. New IV to right AC d/t left AC IV occluding on transfer from ED. Med list verified w/ family member in ED, pt does not manage her own medication at home. Family will bring medication this AM, will pass along in report.
[2019-10-12 05:42] LABS: Basophils # 0.1 K/mm3 (0-0.2); Basophils % 1.2 % (0.1-2.0); Eosinophils # 0.3 K/mm3 (0.0-0.4); Eosinophils % 4.1 % (0.1-12.0); Hematocrit 30.8 % (37.0-47.0); Hemoglobin 9.6 g/dL (12.2-16.2); Lymphocytes # 2.3 K/mm3 (0.7-4.5); Lymphocytes % 35.8 % (10-50); Mean Corpuscular HGB Conc 31.1 g/dL (31.8-35.4); Mean Corpuscular Hemoglobin 24.4 pg (27.0-31.2); Mean Corpuscular Volume 78.2 fl (81-99); Mean Platelet Volume 7.3 fl (7.4-10.4); Monocytes # 0.5 K/mm3 (0.1-1.0); Monocytes % 8.2 % (1.7-9.3); Neutrophils # 3.3 K/mm3 (1.8-7.8); Neutrophils % 50.7 % (37.0-80.0); Platelet Count 247 K/mm3 (142-424); Red Blood Count 3.94 M/mm3 (4.20-5.40); Red Cell Distribution Width 18.3 % (11.5-17.5); White Blood Count 6.5 K/mm3 (4.8-10.8)
[2019-10-12 06:00] LABS: Anion Gap 8.3 mEq/L (5-15); Blood Urea Nitrogen 16 mg/dl (7-17); Calcium 8.7 mg/dl (8.4-10.2); Carbon Dioxide 26 mmol/L (22.0-30.0); Chloride 106 mmol/L (98-107); Creatinine Clearance Estimated 57 mL/min (50-200); Estimated Glomerular Filt Rate 81 ml/min (>60); GFR (African American) 98 ML/MIN (>60); Glucose 97 mg/dl (74-100); Potassium 4.3 mmoL/L (3.5-5.1); Sodium 136 mmol/L (136-145)
[2019-10-12 06:16] LABS: Troponin I < 0.01 ng/ml (0.00-0.034)
--- NOTE | 2019-10-12 08:13 | HMH.HPDC ---
General - General Admission date:: 10/12/19 *Admission Date: 10/12/19 *Chief complaint: Falls at home *History of present illness: 79-year-old female presented to the emergency department with family after multiple falls at home. Patient reports 2 falls on and at least 2 more falls on Monday. With the patient's first fall on Monday she was able to get to a telephone and contact family. Family came and helped her to her feet and she continued to try to ambulate to the bathroom where she fell again. It was at this point the decision was made to bring her to the emergency department for evaluation. Patient has had similar presentations in the past and has had urinary tract infections which may cause weakness. Patient also takes several medications which could contribute to falls. Work-up in the emergency department was unremarkable. Decision was made to admit the patient overnight for observation. This morning the patient has no complaints. She admits she has been feeling weak for the last few days. While she had these falls at home she denies loss of consciousness. She denies chest pain or palpitations prior to fall. She denies any change in her dyspnea caused by chronic asthma. [facility] History I have reviewed the patient's past medical history: Yes Medical History: Reports:: Chronic Obstructive Pulmonary Disease (COPD), Hypertension, Peripheral Vascular Disease Denies:: Cancer, Diabetes Mellitus Type 1, Diabetes Mellitus Type 2, MRSA *Have you ever received a pneumonia vaccine?: Yes *Have you received a flu vaccine this season?: Yes Other Medical History: Reports: Cataracts (surgical repair bilat), Other Laterality Cases: Left: Arthroscopy Knee, Right: Total Hip Replacement, Bilateral: Tonsillectomy Other Surgeries: Yes: Appendectomy, Cholecystectomy, Hysterectomy-Total, Other Amputation: No Fractures: (NECK,ARM,HIP) - *Social History Educational Level: Completed High School Smoking Status: Never smoker Alcohol Intake: never Alcohol Intake Frequency:: other Substance Use Type: denies use *Occupational Status:: retired Housing: house Household Members: none *Travel in the last 8 weeks: None Family Hx:: Heart Attack WICK TENDER history: Spontaneous , Endometriosis Review of Systems - Constitutional Reports fatigue, Reports lack of energy, Denies anorexia, Denies body ache(s), Denies chills, Denies fever(s), Denies malaise, Denies night sweats - ENT Denies abnormal hearing - *Cardiovascular Denies chest pain, Denies chest pain at rest - *Respiratory Denies change in phlegm color, Denies chest congestion - *Gastrointestinal Denies abdominal pain - *Genitourinary Denies difficulty urinating, Denies painful urination - *Musculoskeletal Reports joint pain (Bilateral shoulder) - *Neurologic Reports fainting, Denies localized weakness, Denies headache(s), Denies seizure-like activity Exam Vital signs and Labs for Last 24 Hours: Temp Pulse Resp BP Pulse Ox 97.8 F 63 20 105/50 L 96 10/12/19 04:00 10/12/19 04:00 10/12/19 04:00 10/12/19 04:00 10/12/19 04:00 Laboratory Results - last 24 hr 10/11/19 22:00: WBC 8.1, RBC 4.08 L, Hgb 10.0 L, Hct 31.9 L, MCV 78.3 L, MCH 24.5 L, MCHC 31.2 L, RDW 18.3 H, Plt Count 281, MPV 8.0, Neut % (Auto) 49.7, Lymph % (Auto) 39.0, [place] % (Auto) 7.2, Eos % (Auto) 3.5, Baso % (Auto) 0.6, Neut # (Auto) 4.0, Lymph # (Auto) 3.2, [place] # (Auto) 0.6, Eos # (Auto) 0.3, Baso # (Auto) 0.1 10/11/19 22:00: Sodium 134 L, Potassium 4.4, Chloride 99, Carbon Dioxide 27, Anion Gap 12.4, BUN 18 H, Creatinine 0.90, Estimated Creat Clear 57, Estimated GFR 60, Est GFR ( Amer) 73, Glucose 115 H, Calcium 8.9, Troponin I < 0.01 10/11/19 22:36: Urine Color Yellow, Urine Appearance Clear, Urine pH 6.0, Ur Specific [place] 1.010, Urine Protein Negative, Urine Glucose (UA) Negative, Urine Ketones Negative, Urine Blood Negative, Urine Nitrate Negative, Urine Bilirubin Negative, Urine
--- NOTE | 2019-10-12 08:49 | HMH.PHAVTE ---
[facility] Pharmacy VTE Monitoring - Patient Demographics Admission date: 10/11/19 Report Date: 10/12/19 Time: 08:49 Allergies/Adverse Reactions: Patient Allergies celecoxib [From CELEBREX] Allergy (Unknown, Verified 07/15/19 10:31) Height: 1.57 m Weight: 78.925 kg Patient Problems: Current Active Problems Syncope (Acute) Fall at home (Acute) Obesity (BMI 30-39.9) (Acute) - VTE Risk Labs: VTE Related Lab Results Hgb 9.6 g/dL (12.2-16.2) L 10/12/19 05:10 Hct 30.8 % (37.0-47.0) L 10/12/19 05:10 Plt Count 247 K/mm3 (142-424) 10/12/19 05:10 BUN 16 mg/dl (7-17) 10/12/19 05:10 Creatinine 0.70 mg/dl (0.52-1.04) D 10/12/19 05:10 Estimated Creat Clear 57 mL/min (50-200) 10/12/19 05:10 VTE Score: 5 VTE Risk Level: Low Risk - Prophylaxis VTE Prophylaxis Ordered?: Yes Types of VTE Prophylaxis: TEDS Knee High Location of Applied Device: Bilateral Lower Extremeties - VTE Diagnosis Confirmed Treatment or plan recommended: Continue Current Treatment
--- NOTE | 2019-10-12 14:34 | HMH.PHAINT ---
DISCHARGE COUNSELING COMPLETED ON PATIENT. PATIENT IS TO CONTINUE ALL CURRENT HOME MEDICATIONS WITH THE EXCEPTION OF AMLODIPINE. PATIENT IS FOLLOWING UP WITH DR. ROSARIO ON MONDAY. PATIENT VERBALIZED UNDERSTANDING AND HAD NO QUESTIONS AT THIS TIME. -STACI MURCIA, BLANCAD
== END 2019-10-12 13:30 | disposition home or self-care (01) ==
LOC: ER 22:30 → 2ND 10-12 01:37
PROVIDERS: Admitting Provider Emergency Medicine; Emergency Provider Emergency Medicine; PCP Family Medicine; Visit Provider Family Medicine
DX: M19.90 Unspecified osteoarthritis, unspecified site (principal); Z91.81 History of falling; J44.9 Chronic obstructive pulmonary disease, unspecified; I10 Essential (primary) hypertension; I70.203 Unspecified atherosclerosis of native arteries of extremities, bilateral legs; Z79.51 Long term (current) use of inhaled steroids; Z79.899 Other long term (current) drug therapy; Z96.1 Presence of intraocular lens; Z96.641 Presence of right artificial hip joint; Z90.710 Acquired absence of both cervix and uterus
CPT/HCPCS: 36415; 70450; 71045; 72125; 72170; 73030; 73060; 74177; 80048; 81001; 83735; 84484; 85025; 93005; 96365; 96375; 99285; G0378; J2405; Q9967

== ENCOUNTER → 2019-12-20 13:14 | Outpatient (CLI) | payer MEDICARE, OTHER, SELFPAY ==
[2019-12-20 14:25] LABS: Basophils # 0.1 K/mm3 (0-0.2); Basophils % 0.7 % (0.1-2.0); Eosinophils # 0.2 K/mm3 (0.0-0.4); Eosinophils % 3.6 % (0.1-12.0); Hematocrit 32.4 % (37.0-47.0); Hemoglobin 10.1 g/dL (12.2-16.2); Lymphocytes # 2.3 K/mm3 (0.7-4.5); Lymphocytes % 34.2 % (10-50); Mean Corpuscular HGB Conc 31.3 g/dL (31.8-35.4); Mean Corpuscular Hemoglobin 25.7 pg (27.0-31.2); Mean Corpuscular Volume 82.1 fl (81-99); Mean Platelet Volume 8.1 fl (7.4-10.4); Monocytes # 0.4 K/mm3 (0.1-1.0); Monocytes % 5.7 % (1.7-9.3); Neutrophils # 3.8 K/mm3 (1.8-7.8); Neutrophils % 55.8 % (37.0-80.0); Platelet Count 248 K/mm3 (142-424); Red Blood Count 3.95 M/mm3 (4.20-5.40); Red Cell Distribution Width 17.7 % (11.5-17.5); White Blood Count 6.8 K/mm3 (4.8-10.8)
[2019-12-20 15:13] LABS: Alanine Aminotransferase 10 U/L (12-78); Albumin Level 3.4 g/dl (3.5-5.0); Albumin/Globulin Ratio 1.3 (1.1-1.8); Alkaline Phosphatase 63 U/L (38-126); Anion Gap 12.6 mEq/L (5-15); Aspartate Amino Transferase 25 U/L (14-36); Bilirubin,Total 0.3 mg/dl (0.2-1.3); Blood Urea Nitrogen 18 mg/dl (7-17); Calcium 9.1 mg/dl (8.4-10.2); Carbon Dioxide 28 mmol/L (22.0-30.0); Chloride 99 mmol/L (98-107); Estimated Glomerular Filt Rate 69 ml/min (>60); GFR (African American) 84 ML/MIN (>60); Globulin 2.7 g/dL (1.3-3.2); Glucose 111 mg/dl (74-100); Potassium 4.6 mmoL/L (3.5-5.1); Sodium 135 mmol/L (136-145); Total Protein,Serum 6.1 g/dl (6.3-8.2)
== END ==
PROVIDERS: Visit Provider Internal Medicine Rheumatology
DX: L40.50 Arthropathic psoriasis, unspecified (principal); M81.0 Age-related osteoporosis without current pathological fracture; N28.9 Disorder of kidney and ureter, unspecified; R41.3 Other amnesia; R53.83 Other fatigue
CPT/HCPCS: 36415; 80053; 85025

== ENCOUNTER → 2020-03-24 15:50 | Outpatient (CLI) | payer MEDICARE, OTHER, SELFPAY ==
[2020-03-24 16:09] LABS: Basophils # 0.1 K/mm3 (0-0.2); Basophils % 0.7 % (0.1-2.0); Eosinophils # 0.2 K/mm3 (0.0-0.4); Eosinophils % 3.1 % (0.1-12.0); Hematocrit 39.6 % (37.0-47.0); Hemoglobin 12.3 g/dL (12.2-16.2); Lymphocytes # 2.4 K/mm3 (0.7-4.5); Lymphocytes % 32.9 % (10-50); Mean Corpuscular HGB Conc 31.1 g/dL (31.8-35.4); Mean Corpuscular Volume 83.8 fl (81-99); Mean Platelet Volume 7.5 fl (7.4-10.4); Monocytes # 0.4 K/mm3 (0.1-1.0); Monocytes % 5.8 % (1.7-9.3); Neutrophils # 4.2 K/mm3 (1.8-7.8); Neutrophils % 57.6 % (37.0-80.0); Platelet Count 290 K/mm3 (142-424); Red Blood Count 4.72 M/mm3 (4.20-5.40); Red Cell Distribution Width 17.8 % (11.5-17.5); White Blood Count 7.2 K/mm3 (4.8-10.8)
[2020-03-24 16:34] LABS: Chloride 101 mmol/L (98-107); Potassium 4.2 mmoL/L (3.5-5.1); Sodium 136 mmol/L (136-145)
[2020-03-24 16:37] LABS: Alanine Aminotransferase 10 U/L (12-78); Albumin Level 4.2 g/dl (3.5-5.0); Albumin/Globulin Ratio 1.3 (1.1-1.8); Alkaline Phosphatase 85 U/L (38-126); Anion Gap 11.2 mEq/L (5-15); Aspartate Amino Transferase 24 U/L (14-36); Bilirubin,Total 0.3 mg/dl (0.2-1.3); Blood Urea Nitrogen 11 mg/dl (7-17); Carbon Dioxide 28 mmol/L (22.0-30.0); Estimated Glomerular Filt Rate 81 ml/min (>60); GFR (African American) 97 ML/MIN (>60); Globulin 3.2 g/dL (1.3-3.2); Total Protein,Serum 7.4 g/dl (6.3-8.2)
[2020-03-24 16:38] LABS: Calcium 9.1 mg/dl (8.4-10.2); Glucose 97 mg/dl (74-100)
== END ==
PROVIDERS: Visit Provider Internal Medicine Rheumatology
DX: K21.9 Gastro-esophageal reflux disease without esophagitis (principal); K76.89 Other specified diseases of liver; L40.50 Arthropathic psoriasis, unspecified; M25.511 Pain in right shoulder; M79.7 Fibromyalgia
CPT/HCPCS: 36415; 80053; 85025

== ENCOUNTER 2020-04-24 10:17 | Emergency (ER) | payer MEDICARE, OTHER, SELFPAY ==
--- NOTE | 2020-04-24 10:10 | ECG_ITS ---
APPROVED REPORT Exam: Resting ECG HR:53 bpm ECG Measurements Heart Rate 53 AXES RI 182 P 32 QRSd 88 QRS 0 QT 476 T 49 QTc 446 Conclusion Sinus bradycardia Otherwise normal ECG Electronically signed by : Kiko Simpson, 04/25/2020 10:34:45
[2020-04-24 10:18] VITALS: BP 176/64; PULSE 63; RESP 18; TEMP 36.8; O2SAT 95
--- NOTE | 2020-04-24 10:28 | XR_ITS ---
PROCEDURE: XR CHEST PORTABLE CLINICAL HISTORY: general weakness COMPARISON: CR XR CHEST PORTABLE from 05/13/2019 CR XR CHEST 2V from 06/06/2019 CR XR CHEST AP from 10/11/2019 FINDINGS: The lung ng are well-expanded appear clear of infiltrate. 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 There is mild generalized cardiomegaly mild aortic tortuosity. There is no pulmonary congestion pleural fluid. There are multiple old healed rib fractures right-side. There is severe far advanced degenerative changes both shoulders right side greater than left. There is a calcified right paratracheal node. IMPRESSION: Mild to moderate generalized cardiomegaly, no acute cardiopulmonary disease seen. Dictated by: Dr. Cayden March MD 04/24/2020 11:23 Dr. Cayden March MD in [place] 04/24/2020 11:23
--- NOTE | 2020-04-24 10:29 | CT_ITS ---
PROCEDURE: CT HEAD/BRAIN WO CON CLINICAL INDICATION: dizziness COMPARISON: CT CT HEAD/BRAIN WO CON from 10/11/2019 TECHNIQUE: Axial images obtained. All CT scans at the facility use one or more dose reduction, viz: automated exposure control, ma/kV adjustment per patient size (including targeted exams where dose is matched to indication, i.e. head), or iterative reconstruction technique. FINDINGS: No midline shift, mass effect, intracranial hemorrhage, hydrocephalus, or extra-axial fluid collection is evident. The sylvian fissures and cortical sulci appear prominent as noted on the most recent exam. There are mild periventricular hypodensities consistent with chronic ischemic white matter changes. The calvarium has an unremarkable appearance, both internal auditory canals appear normal. There is prominent focal calcification of the falx cerebri anteriorly. No mastoid effusion. No sinus air-fluid level. IMPRESSION: Findings of moderate cortical atrophy, no acute intracranial pathology Dictated by: Dr. Cayden March MD 04/24/2020 11:21 Dr. Cayden March MD in [place] 04/24/2020 11:21
[2020-04-24 10:42] LABS: Basophils % 0.4 % (0.1-2.0); Eosinophils # 0.2 K/mm3 (0.0-0.4); Eosinophils % 2.9 % (0.1-12.0); Hematocrit 35.2 % (37.0-47.0); Hemoglobin 10.8 g/dL (12.2-16.2); Lymphocytes # 2.2 K/mm3 (0.7-4.5); Lymphocytes % 35.5 % (10-50); Mean Corpuscular HGB Conc 30.8 g/dL (31.8-35.4); Mean Corpuscular Hemoglobin 26.3 pg (27.0-31.2); Mean Corpuscular Volume 85.4 fl (81-99); Mean Platelet Volume 10.1 fl (7.4-10.4); Monocytes # 0.3 K/mm3 (0.1-1.0); Monocytes % 5.7 % (1.7-9.3); Neutrophils # 3.4 K/mm3 (1.8-7.8); Neutrophils % 55.5 % (37.0-80.0); Platelet Count 269 K/mm3 (142-424); Red Blood Count 4.12 M/mm3 (4.20-5.40); Red Cell Distribution Width 17.4 % (11.5-17.5)
[2020-04-24 10:46] LABS: Chloride 103 mmol/L (98-107)
[2020-04-24 10:47] LABS: Potassium 4.2 mmoL/L (3.5-5.1); Sodium 138 mmol/L (136-145)
[2020-04-24 10:50] LABS: Anion Gap 8.2 mEq/L (5-15); Blood Urea Nitrogen 16 mg/dl (7-17); Carbon Dioxide 31 mmol/L (22.0-30.0); Creatinine Clearance Estimated 56 mL/min (50-200); Estimated Glomerular Filt Rate 69 ml/min (>60); GFR (African American) 84 ML/MIN (>60); Glucose 118 mg/dl (74-100)
--- NOTE | 2020-04-24 10:52 | PC.NURSE ---
PT GOING TO CT
--- NOTE | 2020-04-24 10:57 | HMH.EDGENADL ---
ED Disposition Clinical Impression: Weakness Disposition: Home, Self-Care Condition on Discharge: Good Additional Instructions: Work-up in the emergency department relatively unremarkable including CT head, chest x-ray, CBC, BMP, troponin, urinalysis. At this time, please use a walker and be very careful at home. Avoid any activities that would increase risk of fall. Follow-up with your doctor next week. Immediately return if any increased unsteadiness, weakness, or other new concerning symptoms. Referrals: Kiko Pitt MD [Primary Care Provider] - - Critical Care Critical Care Time: No Attestation: On 04/24/20, the high probability of a clinically significant, sudden or life threatening deterioration of the following system(s) required my full and direct attention, intervention and personal management. The time I documented below is in addition to time spent performing reported procedures but includes the following listed in this critical care notation. Medical Decision Making - Medical Records Medical records reviewed: Yes: I reviewed the patient's medical records. - Chidi Inquiry Pt receiving controlled substance: No Vital Signs: 04/24/20 10:18 04/24/20 11:52 04/24/20 12:28 Temperature 98.2 F Temperature Source Oral Pulse Rate [Left Radial] 63 59 L 59 L Respiratory Rate 18 18 18 Blood Pressure [Right Arm] 176/64 H 194/81 H 217/98 H Blood Pressure Mean [Right Arm] 101 118 137 Blood Pressure Source [Right Arm] Automatic Cuff Automatic Cuff Automatic Cuff Blood Pressure Position [Right Arm] Sitting Sitting Sitting 02 Sat by Pulse Oximetry 95 95 98 Oxygen Delivery Method Room Air 04/24/20 13:08 Temperature Temperature Source Pulse Rate [Left Radial] 50 L Respiratory Rate 20 Blood Pressure [Right Arm] 179/77 H Blood Pressure Mean [Right Arm] 111 Blood Pressure Source [Right Arm] Blood Pressure Position [Right Arm] 02 Sat by Pulse Oximetry 97 Oxygen Delivery Method - Lab Data Lab Results 04/24/20 10:15: WBC 6.0, RBC 4.12 L, Hgb 10.8 L, Hct 35.2 L, MCV 85.4, MCH 26.3 L, MCHC 30.8 L, RDW 17.4, Plt Count 269, MPV 10.1, Neut % (Auto) 55.5, Lymph % (Auto) 35.5, [place] % (Auto) 5.7, Eos % (Auto) 2.9, Baso % (Auto) 0.4, Neut # (Auto) 3.4, Lymph # (Auto) 2.2, [place] # (Auto) 0.3, Eos # (Auto) 0.2, Baso # (Auto) 0.0 04/24/20 10:15: Sodium 138, Potassium 4.2, Chloride 103, Carbon Dioxide 31 H, Anion Gap 8.2, BUN 16, Creatinine 0.80, Estimated Creat Clear 56, Estimated GFR 69, Est GFR ( Amer) 84, Glucose 118 H, Calcium 9.0, Troponin I < 0.01 04/24/20 12:00: Urine Color Yellow, Urine Appearance Clear, Urine pH 7.0, Ur Specific [place] 1.015, Urine Protein Negative, Urine Glucose (UA) Negative, Urine Ketones Negative, Urine Blood Negative, Urine Nitrate Negative, Urine Bilirubin Negative, Urine Urobilinogen 0.2, Ur Leukocyte Esterase Negative, Urine WBC 3-5, Ur Squamous Epith Cells 3-5 Result diagrams: 04/24/20 10:15 04/24/20 10:15 Orders (Tests/Meds): ED MEDICATIONS Discontinued Medications Generic Name Dose Route Start Last Admin Trade Name Freq PRN Reason Stop Dose Admin Acetaminophen 500 mg 04/24/20 12:33 04/24/20 12:46 Acetaminophen 500mg Tab PO 04/24/20 12:34 500 mg ONCE ONE Administration ORDERS Category Date Time Status Troponin I Q3H Lab 04/24/20 13:30 Ordered Troponin I Q3H Lab 04/24/20 16:30 Ordered - ECG Data Tracing #1 ECG normal with no acute: arrhythmias, ischemia, conduction abnormalities, chamber hypertrophy Arrhythmias present: sinus marlene Medical Decision Narrative: Patient is an 80-year-old female presenting with global weakness. On arrival, she is hemodynamically stable with no abnormal findings on neurologic exam. EKG obtained in straight some sinus bradycardia without any ischemic changes or abnormal intervals/arrhythmias. Heart rate will be monitored closely while patient remains on telemetry throughout ER stay. At this t
[2020-04-24 11:07] LABS: Troponin I < 0.01 ng/ml (0.00-0.034)
[2020-04-24 11:52] VITALS: BP 194/81; PULSE 59; RESP 18; O2SAT 95
[2020-04-24 12:17] LABS: Microscopic, Urine URINE MICROSCOPIC (MICROSCOPIC)
[2020-04-24 12:20] LABS: Appearance,Urine CLEAR (Clear); Bilirubin,Urine Negative (Negative); Blood, Urine Negative (Negative); Color,Urine YELLOW (Yellow); Glucose,Urine (UA) Negative (Negative); Ketones,Urine Negative (Negative); Leukocyte Esterase,Urine Negative (Negative); Nitrate,Urine Negative (Negative); Protein,Urine Negative (Negative); Specific Gravity, Urine 1.015 (1.005-1.030); Urobilinogen,Urine 0.2 EU/dl (0.2)
[2020-04-24 12:28] VITALS: BP 217/98; PULSE 59; RESP 18; O2SAT 98
[2020-04-24 13:08] VITALS: BP 179/77; PULSE 50; RESP 20; O2SAT 97
--- NOTE | 2020-04-24 13:45 | PC.NURSE ---
Dr Sung speaking with Dr Pitt
[2020-04-24 14:00] VITALS: BP 158/61; PULSE 60; RESP 19; TEMP 36.8; O2SAT 98
== END 2020-04-24 14:05 | disposition home or self-care (01) ==
PROVIDERS: Emergency Provider Emergency Medicine; PCP Family Medicine
DX: R53.83 Other fatigue (principal); R42 Dizziness and giddiness; J44.9 Chronic obstructive pulmonary disease, unspecified; I10 Essential (primary) hypertension; I73.9 Peripheral vascular disease, unspecified; Z96.641 Presence of right artificial hip joint; Z90.710 Acquired absence of both cervix and uterus; Z90.49 Acquired absence of other specified parts of digestive tract
CPT/HCPCS: 70450; 71045; 80048; 81001; 84484; 85025; 93005; 99283

== ENCOUNTER 2020-07-22 15:02 | Inpatient (IN) | payer MEDICARE, OTHER, SELFPAY ==
[2020-07-22] VITALS (13 sets, daily range): BP systolic 126–188; BP diastolic 66–99; PULSE 67–101; RESP 15–20; TEMP 36.7–36.9; O2SAT 92–97; BMI 29.8; BMI 30.6
--- NOTE | 2020-07-22 15:36 | CT_ITS ---
PROCEDURE: CT THORACIC SPINE WO CON CLINICAL HISTORY: fall Posttraumatic pain COMPARISON: CT CT CERVICAL SPINE WO CON from 10/11/2019 TECHNIQUE: Axial images obtained with sagittal and coronal reformats. All CT scans at the facility use one or more dose reduction, viz: automated exposure control, ma/kV adjustment per patient size (including targeted exams where dose is matched to indication, i.e. head), or iterative reconstruction technique. FINDINGS: Kyphoscoliosis with multilevel thoracic spondylosis. There is minimal wedge contour multiple thoracic vertebra which may be chronic. No fracture lines or retropulsed fragments are evident. Mild wedging of T2 which was present on a older study of 10/11/2019 IMPRESSION: Kyphoscoliosis with spondylosis No definite acute finding. MRI may provide further evaluation if clinically warranted Dictated by: Triston Gaytan MD 07/23/2020 07:27 Triston Gaytan MD in [facility] 07/23/2020 07:27
--- NOTE | 2020-07-22 15:36 | CT_ITS ---
PROCEDURE: CT HEAD/BRAIN WO CON CLINICAL INDICATION: fall Head injury with headache/pain, contusion, abrasion or hematoma COMPARISON: CT CT HEAD/BRAIN WO CON from 04/24/2020 TECHNIQUE: Axial images obtained. All CT scans at the facility use one or more dose reduction, viz: automated exposure control, ma/kV adjustment per patient size (including targeted exams where dose is matched to indication, i.e. head), or iterative reconstruction technique. FINDINGS: No midline shift, mass effect, intracranial hemorrhage, hydrocephalus, or extra-axial fluid collection is evident. There is generalized atrophy with hypoattenuation of the periventricular white matter consistent with microangiopathic changes. The calvarium has an unremarkable appearance. No mastoid effusion. No sinus air-fluid level. IMPRESSION: No acute intracranial finding Dictated by: Triston Gaytan MD 07/23/2020 07:12 Triston Gaytan MD in [facility] 07/23/2020 07:12
--- NOTE | 2020-07-22 15:36 | CT_ITS ---
PROCEDURE: CT CERVICAL SPINE WO CON CLINICAL INDICATION: fall Neck injury with pain, contusion/abrasion or hematoma, cervical sprain/strain the COMPARISON: CT CT CERVICAL SPINE WO CON from 10/11/2019 TECHNIQUE: Axial images obtained with sagittal and coronal reformats. All CT scans at the facility use one or more dose reduction, viz: automated exposure control, ma/kV adjustment per patient size (including targeted exams where dose is matched to indication, i.e. head), or iterative reconstruction technique. Axial spiral CT scanning performed of the cervical spine beginning at the base of the skull and continuing to the upper T-spine. 3-D multiplanar reconstruction with 3-D manipulation of volumetric data set in image rendering was completed by the radiologist and/or technologist with the supervision of the radiologist on independent workstation. FINDINGS: Generalized osteopenia with multilevel cervical spondylosis. There is an old ununited fracture at the base of the odontoid. There is minimal is posterior displacement of the superior fracture fragment. Multilevel cervical spondylosis is present with degenerative disc disease at C5-C6 and C6-C7 with uncovertebral and facet hypertrophic change. IMPRESSION: Chronic type 2 odontoid fracture with minimal posterior displacement overall not significantly changed. No acute fracture apparent Cervical spondylosis Dictated by: Triston Gaytan MD 07/23/2020 07:15 Triston Gaytan MD in [facility] 07/23/2020 07:15
--- NOTE | 2020-07-22 15:38 | CT_ITS ---
PROCEDURE: CT ANGIO CHEST CLINCIAL INDICATION: chest trauma Blunt trauma with injury and pain, contusion/abrasion or hematoma following injury COMPARISON: CR XR CHEST AP from 10/11/2019 CR XR SHOULDER LT MIN 2V from 07/22/2020 TECHNIQUE: IV Contrast: 70ML Isovue 370 Axial images obtained with sagittal and coronal reformats. All CT scans at the facility use one or more dose reduction, viz: automated exposure control, ma/kV adjustment per patient size (including targeted exams where dose is matched to indication, i.e. head), or iterative reconstruction technique. FINDINGS: HEART AND MEDIASTINAL STRUCTURES: No evidence of pulmonary embolus, aortic aneurysm, or aortic dissection. LUNGS AND PLEURAL SPACES: Calcified granuloma right lower lobe. BONY STRUCTURES: There is a nondisplaced fracture involving the distal aspect of the left coracoid process. There are degenerative changes in the shoulders. Mild thoracic scoliosis convex left. There is thoracic kyphosis with multilevel degenerative change in the thoracic spine. There are old bilateral rib fractures. Bilateral shoulder joint effusions are noted. 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 IMPRESSION: 1. Left coracoid fracture nondisplaced 2. Old bilateral rib fractures with other nonacute findings as described above. Dictated by: Triston Gaytan MD 07/23/2020 07:22 Triston Gaytan MD in [place] 07/23/2020 07:22
--- NOTE | 2020-07-22 15:38 | XR_ITS ---
PROCEDURE: XR SHOULDER LT MIN 2V CLINICAL INDICATION: fall Pain COMPARISON: CR [id number] VIEWS from 03/12/2013 CR SHOULDCMRT XR shoulder RT min 2V from 09/05/2017 CR [id number] XR shoulder LT min 2V from 09/05/2017 CR XR SHOULDER RT MIN 2V from 10/11/[address] ANGIO CHEST from 07/22/2020 FINDINGS: Osteoarthritic changes involve the glenohumeral joint and acromioclavicular joint. Images are somewhat limited due to difficulty in positioning the patient. There is a fracture of the left coracoid process much better demonstrated on CT scan of the chest of the same day. Other findings:None. IMPRESSION: Fracture of the left coracoid process best demonstrated on the CT scan of the same day. Osteoarthritic changes Dictated by: Triston Gaytan MD 07/23/2020 05:42 Triston Gaytan MD in [place] 07/23/2020 05:42
--- NOTE | 2020-07-22 15:41 | HMH.EDGENADL ---
ED Disposition Clinical Impression: Rhabdomyolysis Qualifiers: Rhabdomyolysis type: traumatic Encounter type: initial encounter Qualified Code(s): T79.6XXA - Traumatic ischemia of muscle, initial encounter Back contusion Qualifiers: Encounter type: initial encounter Laterality: left Qualified Code(s): S20.222A - Contusion of left back wall of thorax, initial encounter Fall Qualifiers: Encounter type: initial encounter Qualified Code(s): W19.XXXA - Unspecified fall, initial encounter Disposition: Admitted as Observation Condition on Discharge: [facility] - Critical Care Critical Care Time: No Attestation: On 07/22/20, the high probability of a clinically significant, sudden or life threatening deterioration of the following system(s) required my full and direct attention, intervention and personal management. The time I documented below is in addition to time spent performing reported procedures but includes the following listed in this critical care notation. Medical Decision Making - Chidi Inquiry Pt receiving controlled substance: Yes Chidi was queried for this patient: Yes Risks and benefits of using a controlled substance: were not discussed with pt by me Vital Signs: 07/22/20 15:03 07/22/20 16:03 07/22/20 16:30 Temperature 98.1 F Temperature Source Oral Pulse Rate [Right] 84 86 67 Respiratory Rate 17 18 Blood Pressure [Right Arm] 160/84 H 127/80 188/81 H Blood Pressure Mean [Right Arm] 109 95 116 Blood Pressure Source [Right Arm] Automatic Cuff Blood Pressure Position [Right Arm] Sitting 02 Sat by Pulse Oximetry 97 96 94 L Oxygen Delivery Method Room Air Room Air 07/22/20 17:41 07/22/20 19:00 07/22/20 19:30 Temperature Temperature Source Pulse Rate [Right] 86 92 H 90 Respiratory Rate 17 17 Blood Pressure [Right Arm] 182/99 H 150/71 H 177/66 H Blood Pressure Mean [Right Arm] 126 97 103 Blood Pressure Source [Right Arm] Automatic Cuff Automatic Cuff Automatic Cuff Blood Pressure Position [Right Arm] Supine Supine 02 Sat by Pulse Oximetry 92 L 95 95 Oxygen Delivery Method Room Air Room Air - Lab Data Lab results reviewed: Yes: I reviewed the patient's lab results. Lab Results 07/22/20 15:50: WBC 14.6 H, RBC 4.26, Hgb 11.2 L, Hct 36.5 L, MCV 85.6, MCH 26.4 L, MCHC 30.8 L, RDW 15.6, Plt Count 282, MPV 8.0, Neut % (Auto) 82.8 H, Lymph % (Auto) 11.2, [place] % (Auto) 5.0, Eos % (Auto) 0.6, Baso % (Auto) 0.4, Neut # (Auto) 12.1 H, Lymph # (Auto) 1.6, [place] # (Auto) 0.7, Eos # (Auto) 0.1, Baso # (Auto) 0.1 07/22/20 15:50: Sodium 137, Potassium 4.2, Chloride 105, Carbon Dioxide 24, Anion Gap 12.2, BUN 21 H, Creatinine 1.00, Estimated Creat Clear 51, Estimated GFR 53 L, Est GFR ( Amer) 65, Glucose 116 H, Calcium 9.6 07/22/20 15:50: Total Creatine Kinase 1113 H*, CK-MB (CK-2) 16.2 H*, CK-MB (CK-2) Rel Index 1.5, Troponin I < 0.01 Result diagrams: 07/22/20 15:50 07/22/20 15:50 Orders (Tests/Meds): ED MEDICATIONS Generic Name Dose Route Start Last Admin Trade Name Freq PRN Reason Stop Dose Admin Acetaminophen 650 mg 07/22/20 18:05 Acetaminophen 325mg Tab PO 08/21/20 18:04 Q4HP PRN As Needed for Fever or Pain Albuterol Sulfate puffs 07/22/20 21:00 Albuterol-Hfa 90mcg/Puff Inhaler 8gm IH 08/21/20 20:59 BID LOIS Baclofen 5 mg 07/22/20 18:05 Baclofen 10mg Tablet PO 08/21/20 18:04 DIRECTED LOIS Baclofen 10 mg 07/22/20 21:00 Baclofen 10mg Tablet PO 08/21/20 20:59 HS LOIS Donepezil HCl 10 mg 07/22/20 21:00 Donepezil 10mg Tab PO 08/21/20 20:59 HS LOIS Duloxetine HCl mg 07/23/20 09:00 Duloxetine 30mg Capsule. PO 08/22/20 08:59 DAILY LOIS Sodium Chloride 1,000 mls @ 150 mls/hr 03/10/21 18:05 Sod Chlor 0.9% 1000ml Bag IV 08/21/20 18:04 .Q6H40M LOIS Metoprolol Succinate 50 mg 07/22/20 21:00 Metoprolol Succinate Xl 50mg Tablet PO 08/21/20 20:59 HS LOIS Miscellaneous 1 unit 07/22/20
[2020-07-22 15:58] LABS: Basophils # 0.1 K/mm3 (0-0.2); Basophils % 0.4 % (0.1-2.0); Eosinophils # 0.1 K/mm3 (0.0-0.4); Eosinophils % 0.6 % (0.1-12.0); Hematocrit 36.5 % (37.0-47.0); Hemoglobin 11.2 g/dL (12.2-16.2); Lymphocytes # 1.6 K/mm3 (0.7-4.5); Lymphocytes % 11.2 % (10-50); Mean Corpuscular HGB Conc 30.8 g/dL (31.8-35.4); Mean Corpuscular Hemoglobin 26.4 pg (27.0-31.2); Mean Corpuscular Volume 85.6 fl (81-99); Monocytes # 0.7 K/mm3 (0.1-1.0); Neutrophils # 12.1 K/mm3 (1.8-7.8); Neutrophils % 82.8 % (37.0-80.0); Platelet Count 282 K/mm3 (142-424); Red Blood Count 4.26 M/mm3 (4.20-5.40); Red Cell Distribution Width 15.6 % (11.5-17.5); White Blood Count 14.6 K/mm3 (4.8-10.8)
[2020-07-22 16:02] LABS: Chloride 105 mmol/L (98-107); Potassium 4.2 mmoL/L (3.5-5.1); Sodium 137 mmol/L (136-145)
[2020-07-22 16:05] LABS: Anion Gap 12.2 mEq/L (5-15); Blood Urea Nitrogen 21 mg/dl (7-17); Carbon Dioxide 24 mmol/L (22.0-30.0); Creatinine Clearance Estimated 51 mL/min (50-200); Estimated Glomerular Filt Rate 53 ml/min (>60); GFR (African American) 65 ML/MIN (>60)
[2020-07-22 16:06] LABS: Calcium 9.6 mg/dl (8.4-10.2); Creatine Kinase 1113 U/L (30-135); Glucose 116 mg/dl (74-100)
[2020-07-22 16:15] LABS: CKMB Relative Index 1.5 U/L (0-4.0)
--- NOTE | 2020-07-22 16:22 | PC.NURSE ---
pt going to ct
[2020-07-22 16:29] LABS: Creatine Kinase MB 16.2 ng/ml (0.0-2.03); Troponin I < 0.01 ng/ml (0.00-0.034)
--- NOTE | 2020-07-22 16:56 | ECG_ITS ---
APPROVED REPORT Exam: Resting ECG HR:83 bpm ECG Measurements Heart Rate 83 AXES RI 184 P 44 QRSd 90 QRS -15 QT 432 T 44 QTc 507 Conclusion Normal sinus rhythm Prolonged QT Abnormal ECG Electronically signed by : Kiko Simpson, 07/23/2020 08:38:35
--- NOTE | 2020-07-22 17:41 | PC.NURSE ---
NERISSA CHACON speaking with Dr. Simpson who is iron launder operator for Dr. Pitt
--- NOTE | 2020-07-22 17:46 | PC.NURSE ---
HOUSE CALLED FOR BED
--- NOTE | 2020-07-22 18:35 | PC.NURSE ---
Patient sitting up in bed, eating food. Updated on wait status for admit.
--- NOTE | 2020-07-22 22:25 | PC.NURSE ---
patient to the floor at this time via wheel chair
--- NOTE | 2020-07-22 22:29 | PC.NURSE ---
patient up to floor via stretcher.
--- NOTE | 2020-07-23 01:32 | PC.WOUNDNOTE ---
Wound Location: left upper back Length: Width: Depth: Undermining Y/N: Tunneling cm: Granulation %: Slough/necrotic tissue %: Inflammation/swelling Y/N: Pain and/or tenderness Y/N: Exudate: Serosanguinous Sanguinous Serosanguinous Seropurulent Purulent Color: Clear [place] Cloudy/milky [place] Red Green Yellow Brown Bains Blue Consistency: Thick Thin Amount: None Scant Small Moderate Large Odor Y/N:
--- NOTE | 2020-07-23 03:35 | PC.NURSE ---
Pt A&O x4 and has slept well through the night. No complaints of pain. Lungs CTA, on room air. Bowel sounds x4, abd soft and nontender. Pulses present/equal throughout. IV patent, NS @150. Pt able to ambulate with assist x 1. Pt has been incontinent, voiding in brief. VSS, call light in reach, no concerns at this time.
[2020-07-23 04:00] VITALS: BP 139/84; PULSE 111; RESP 18; TEMP 37.3; O2SAT 93
[2020-07-23 05:00] VITALS: BMI 30.7
[2020-07-23 07:05] LABS: Anion Gap 7.7 mEq/L (5-15); Blood Urea Nitrogen 13 mg/dl (7-17); Calcium 8.7 mg/dl (8.4-10.2); Carbon Dioxide 23 mmol/L (22.0-30.0); Chloride 109 mmol/L (98-107); Creatine Kinase 767 U/L (30-135); Creatinine Clearance Estimated 52 mL/min (50-200); Estimated Glomerular Filt Rate 69 ml/min (>60); GFR (African American) 84 ML/MIN (>60); Glucose 95 mg/dl (74-100); Potassium 3.7 mmoL/L (3.5-5.1); Sodium 136 mmol/L (136-145)
--- NOTE | 2020-07-23 07:16 | HMH.PHAVTE ---
[facility] Pharmacy VTE Monitoring - Patient Demographics Admission date: 07/22/20 Report Date: 07/23/20 Time: 07:16 Allergies/Adverse Reactions: Patient Allergies celecoxib [From CELEBREX] Allergy (Unknown, Verified 07/15/19 10:31) Height: 1.55 m Weight: 73.936 kg Patient Problems: Current Active Problems Rhabdomyolysis (Acute) Back contusion (Acute) Fall (Acute) - VTE Risk Labs: VTE Related Lab Results Hgb 11.2 g/dL (12.2-16.2) L 07/22/20 15:50 Hct 36.5 % (37.0-47.0) L 07/22/20 15:50 Plt Count 282 K/mm3 (142-424) 07/22/20 15:50 BUN 13 mg/dl (7-17) D 07/23/20 06:37 Creatinine 0.80 mg/dl (0.52-1.04) 07/23/20 06:37 Estimated Creat Clear 52 mL/min (50-200) 07/23/20 06:37 Was VTE Risk Assessment Performed: Yes VTE Risk Level: Low Risk Clinical Trial Participant: No - Prophylaxis VTE Prophylaxis Ordered?: Yes Types of VTE Prophylaxis: TEDS Knee High
--- NOTE | 2020-07-23 07:23 | HMH.HPDC ---
General - General Admission date:: 07/22/20 *Admission Date: 07/22/20 *Chief complaint: Fall at home *History of present illness: 80-year-old female had an unwitnessed fall at home early yesterday morning. It was unclear whether the patient hit her head. She presented to my office and while was able to ambulate and answer questions appropriately patient had fluctuating level of consciousness in the office. She seemed to be falling asleep when not being interacted with directly. Patient blamed this on her long night from her fall at home where she struck her back and then laid on the floor for several hours. However due to concern about her level of consciousness and the traumatic nature of her injury with unknown trauma to the head patient was sent over to the ER for further evaluation. Traumatic work-up was unrevealing but patient was found to have rhabdomyolysis. Patient was admitted for IV fluids. [facility] History I have reviewed the patient's past medical history: Yes Medical History: Reports:: Chronic Obstructive Pulmonary Disease (COPD), Hypertension, Peripheral Vascular Disease Denies:: Cancer, Diabetes Mellitus Type 1, Diabetes Mellitus Type 2, MRSA *Have you ever received a pneumonia vaccine?: No *Have you received a flu vaccine this season?: No Other Medical History: Reports: Cataracts (surgical repair bilat), Other Laterality Cases: Left: Arthroscopy Knee, Right: Total Hip Replacement, Bilateral: Tonsillectomy Other Surgeries: Yes: Appendectomy, Cholecystectomy, Hysterectomy-Total, Other Amputation: No Fractures: (NECK,ARM,HIP) - *Social History Last grade of school completed: High school graduate Smoking Status: Never smoker Alcohol Intake: never Alcohol Intake Frequency:: other Substance Use Type: denies use *Occupational Status:: retired Housing: house Household Members: none *Travel in the last 8 weeks: None Family Hx:: Unable to obtain [employer] history: Spontaneous , Endometriosis Review of Systems - Constitutional Reports body ache(s), Denies anorexia, Denies chills, Denies lack of energy - Eyes Denies blurry vision - ENT Denies abnormal hearing, Denies bleeding gums - *Cardiovascular Denies chest pain, Denies chest pain at rest - *Respiratory Denies change in phlegm color, Denies chest congestion - *Gastrointestinal Denies abdominal pain, Denies belching, Denies bloating - *Genitourinary Denies painful urination - *Musculoskeletal Denies abnormal walking, Denies joint pain - Integumentary/Breasts Denies hair loss, Denies redness - *Neurologic Denies abnormal hearing, Denies headache(s), Denies numbness, Denies weakness - Psychiatric Reports abnormal sleep pattern, Denies lack of enjoyment Exam Vital signs and Labs for Last 24 Hours: Temp Pulse Resp BP Pulse Ox 99.1 F 111 H 18 139/84 93 L 07/23/20 04:00 07/23/20 04:00 07/23/20 04:00 07/23/20 04:00 07/23/20 04:00 Laboratory Results - last 24 hr 07/22/20 15:50: WBC 14.6 H, RBC 4.26, Hgb 11.2 L, Hct 36.5 L, MCV 85.6, MCH 26.4 L, MCHC 30.8 L, RDW 15.6, Plt Count 282, MPV 8.0, Neut % (Auto) 82.8 H, Lymph % (Auto) 11.2, [place] % (Auto) 5.0, Eos % (Auto) 0.6, Baso % (Auto) 0.4, Neut # (Auto) 12.1 H, Lymph # (Auto) 1.6, [place] # (Auto) 0.7, Eos # (Auto) 0.1, Baso # (Auto) 0.1 07/22/20 15:50: Sodium 137, Potassium 4.2, Chloride 105, Carbon Dioxide 24, Anion Gap 12.2, BUN 21 H, Creatinine 1.00, Estimated Creat Clear 51, Estimated GFR 53 L, Est GFR ( Amer) 65, Glucose 116 H, Calcium 9.6 07/22/20 15:50: Total Creatine Kinase 1113 H*, CK-MB (CK-2) 16.2 H*, CK-MB (CK-2) Rel Index 1.5, Troponin I < 0.01 07/23/20 06:37: Sodium 136, Potassium 3.7, Chloride 109 H, Carbon Dioxide 23, Anion Gap 7.7, BUN 13 D, Creatinine 0.80, Estimated Creat Clear 52, Estimated GFR 69, Est GFR ( Amer) 84 D, Glucose 95, Calcium 8.7, Total Creatine Kinase 767 H* D I & O for Last 24 hours: Intake & Output 07/20/20 07/21/20 07/22/20 0
--- NOTE | 2020-07-23 07:58 | XR_ITS ---
PROCEDURE: XR CHEST PORTABLE CLINICAL HISTORY: acute hypoxia COMPARISON: CR XR CHEST 2V from 06/06/2019 CR XR CHEST AP from 10/11/2019 CR XR CHEST PORTABLE from 04/24/[address] ANGIO CHEST from 07/22/2020 FINDINGS: The cardiomediastinal silhouette and pulmonary vascularity are within normal limits. The lungs are clear without infiltrates, suspicious nodules, or pleural effusions. There are old right-sided rib fractures. Degenerative changes of the shoulders. IMPRESSION: No acute findings. Dictated by: Triston Gaytan MD 07/23/2020 09:55 Triston Gaytan MD in [place] 07/23/2020 09:55
[2020-07-23 08:00] VITALS: BP 166/73; PULSE 101; RESP 18; TEMP 37.2; O2SAT 98
--- NOTE | 2020-07-23 08:01 | HMH.ACPN2 ---
Internal Medicine - PN: Subj *Date: 07/23/20 *Time: 08:01 Interval history: On reassessment this morning by nursing staff patient was found to be hypoxic with O2 sats in the 70s and 80s. She had altered level of consciousness. Oxygen was been applied to the patient and sats have risen to 98%. Patient remains drowsy. She awakens with tactile stimulus. She reports getting choked when eating breakfast this morning. Exam Vital signs and Labs for Last 24 Hours: Temp Pulse Resp BP Pulse Ox 98.9 F 101 H 18 166/73 H 98 07/23/20 08:00 07/23/20 08:00 07/23/20 08:00 07/23/20 08:00 07/23/20 08:00 Laboratory Results - last 24 hr 07/22/20 15:50: WBC 14.6 H, RBC 4.26, Hgb 11.2 L, Hct 36.5 L, MCV 85.6, MCH 26.4 L, MCHC 30.8 L, RDW 15.6, Plt Count 282, MPV 8.0, Neut % (Auto) 82.8 H, Lymph % (Auto) 11.2, [place] % (Auto) 5.0, Eos % (Auto) 0.6, Baso % (Auto) 0.4, Neut # (Auto) 12.1 H, Lymph # (Auto) 1.6, [place] # (Auto) 0.7, Eos # (Auto) 0.1, Baso # (Auto) 0.1 07/22/20 15:50: Sodium 137, Potassium 4.2, Chloride 105, Carbon Dioxide 24, Anion Gap 12.2, BUN 21 H, Creatinine 1.00, Estimated Creat Clear 51, Estimated GFR 53 L, Est GFR ( Amer) 65, Glucose 116 H, Calcium 9.6 07/22/20 15:50: Total Creatine Kinase 1113 H*, CK-MB (CK-2) 16.2 H*, CK-MB (CK-2) Rel Index 1.5, Troponin I < 0.01 07/23/20 06:37: Sodium 136, Potassium 3.7, Chloride 109 H, Carbon Dioxide 23, Anion Gap 7.7, BUN 13 D, Creatinine 0.80, Estimated Creat Clear 52, Estimated GFR 69, Est GFR ( Amer) 84 D, Glucose 95, Calcium 8.7, Total Creatine Kinase 767 H* D I & O for Last 24 hours: Intake & Output 07/20/20 07/21/20 07/22/20 07/23/20 11:59 11:59 11:59 11:59 Intake Total 360 / 360 Balance 360 / 360 Weight 163 lb Microbiology Reports for the Last 24 Hours: Microbiology 07/22/20 17:40 Nasopharyngeal Coronavirus COVID-19 PCR - Final - Constitutional somnolent - *Routine Respiratory Exam Present: rhonchi Comments: Right sided rhonchi - *Routine Cardiovascular Exam Present: RRR - *Routine Abdominal Exam Present: soft, normoactive bowel sounds. Absent: tenderness Assessment and Plan (1) Rhabdomyolysis Status: Acute Category: Medical Code(s): M62.82 - Rhabdomyolysis (2) Fall at home Status: Acute Category: Medical Code(s): W19.XXXA - Unspecified fall, initial encounter; Y92.009 - Unspecified place in unspecified non-institutional (private) residence as the place of occurrence of the external cause (3) Polypharmacy Status: Acute Category: Medical Code(s): Z79.899 - Other senior care (current) drug therapy (4) Altered mental status Status: Acute Category: Medical Code(s): R41.82 - Altered mental status, unspecified (5) Hypoxia Status: Acute Category: Medical Code(s): R09.02 - Hypoxemia - Assessment and plan all Dx Assessment and Plan for all problems:: 1. Chest x-ray 2. DC IV fluids and give 40 of Lasix IV 3. BNP will be added to morning labs
[2020-07-23 08:48] LABS: NT Pro Brain Natriuretic Pep. 866 pg/mL (0-450)
--- NOTE | 2020-07-23 10:02 | PC.NURSE ---
Upon entering room this AM for assessment @ around 0745, noted that pt was very drowsy and unable to carry on a conversation (see VS). O2 sat noted to be in 70's on room air, pt was having long periods of apnea as well as snoring when she would drift back off to sleep. Pt placed on 4 L O2 per nasal cannula, sat did not respond, likely d/t pt mouth breathing. Pt placed on 30% venturi mask, SPO2 increased to high 90's. Dr. Pitt @ bedside to assess pt. CXR ordered, 40 IV Lasix, and pt placed on tely. Sinus tach noted on tely. Pt currently resting comfortably, now on room air ( SPO2 now 93-96%). Pt has had 700 cc of urine out thus far since receiving lasix. Daughter updated on pt plan of care via telephone.
[2020-07-23 12:00] VITALS: PULSE 86
[2020-07-23 15:38] VITALS: BP 137/56; PULSE 98; RESP 20; TEMP 36.9; O2SAT 100
--- NOTE | 2020-07-23 16:43 | PC.NURSE ---
Pt has been much more alert this afternoon since daughter has came to visit. She remains on room air. HR regular, remains tachy w/ rate 90 - 110. Abdomen soft, non-tender w/ active BS in all quad. Has been incontinent of bladder this shift, purewick in place to keep track of output. Urine is yellow & clear. Skin intact. Bruise noted to back. No complaints voiced this shift. Denies pain. Remains afebrile. Call ceja w/in reach.
[2020-07-23 17:52] LABS: Microscopic, Urine URINE MICROSCOPIC (MICROSCOPIC)
[2020-07-23 17:54] LABS: Appearance,Urine CLEAR (Clear); Bilirubin,Urine Negative (Negative); Blood, Urine Negative (Negative); Color,Urine YELLOW (Yellow); Glucose,Urine (UA) Negative (Negative); Ketones,Urine Negative (Negative); Leukocyte Esterase,Urine Negative (Negative); Nitrate,Urine Negative (Negative); PH,Urine 5.5 (5.0-8.5); Protein,Urine Negative (Negative); Specific Gravity, Urine 1.015 (1.005-1.030); Urobilinogen,Urine 0.2 EU/dl (0.2)
[2020-07-23 18:18] VITALS: O2SAT 95
[2020-07-23 20:00] VITALS: BP 149/76; PULSE 120; PULSE 98; RESP 26; TEMP 36.9; O2SAT 95
[2020-07-24] VITALS: BP 125/48; PULSE 70; PULSE 80; RESP 20; TEMP 37; O2SAT 96
--- NOTE | 2020-07-24 03:45 | PC.NURSE ---
Pt A&O x4 and has slept fairly well through the night. PT reported difficulty falling asleep and had body aches all over . Tylenol was given x2 per mar and pt was sleeping afterwards. Pt on room air at beginning of shift, this RN placed her on 2L NC while sleeping due to periods of apnea and sat of 90. Pt able to answer orientation questions appropriately and had no difficulty taking PM meds. Pt has been incontinent of urine, brief and purwick in place draining clear yellow urine. Lungs were diminshed but clear overall, bowel sounds x4, abd soft and nontender. Tele reads NSR. vitals have been stable, call light in reach, no concerns at this time.
[2020-07-24 04:00] VITALS: BP 147/72; PULSE 70; PULSE 72; RESP 18; TEMP 36.6; O2SAT 97
[2020-07-24 05:00] VITALS: BMI 28.3
[2020-07-24 06:35] VITALS: O2SAT 96
[2020-07-24 06:45] LABS: Basophils % 0.5 % (0.1-2.0); Eosinophils # 0.3 K/mm3 (0.0-0.4); Eosinophils % 2.9 % (0.1-12.0); Hematocrit 33.3 % (37.0-47.0); Hemoglobin 10.4 g/dL (12.2-16.2); Lymphocytes # 2.6 K/mm3 (0.7-4.5); Mean Corpuscular HGB Conc 31.2 g/dL (31.8-35.4); Mean Corpuscular Volume 83.5 fl (81-99); Mean Platelet Volume 8.1 fl (7.4-10.4); Monocytes # 0.5 K/mm3 (0.1-1.0); Neutrophils # 5.4 K/mm3 (1.8-7.8); Neutrophils % 61.6 % (37.0-80.0); Platelet Count 239 K/mm3 (142-424); Red Blood Count 3.99 M/mm3 (4.20-5.40); Red Cell Distribution Width 15.5 % (11.5-17.5); White Blood Count 8.8 K/mm3 (4.8-10.8)
[2020-07-24 06:53] LABS: Anion Gap 6.7 mEq/L (5-15); Blood Urea Nitrogen 13 mg/dl (7-17); Carbon Dioxide 27 mmol/L (22.0-30.0); Chloride 106 mmol/L (98-107); Creatinine Clearance Estimated 52 mL/min (50-200); Estimated Glomerular Filt Rate 81 ml/min (>60); GFR (African American) 97 ML/MIN (>60); Glucose 102 mg/dl (74-100); Potassium 3.7 mmoL/L (3.5-5.1); Sodium 136 mmol/L (136-145)
--- NOTE | 2020-07-24 07:06 | P.PN_ITS ---
Internal Medicine - PN: Subj *Date: 07/24/20 *Time: 07:06 Interval history: After patient's discharge was canceled yesterday she was placed on supplemental oxygen. Patient's O2 sats remained in the mid to high 90s through the remainder of the day until patient was able to be weaned from oxygen while awake. Overnight nurse reapplied oxygen due to witnessed apneic episodes. This morning the patient awakens easily. She denies shortness of breath. Patient was placed on telemetry yesterday and has not had any arrhythmias Exam Vital signs and Labs for Last 24 Hours: Temp Pulse Resp BP Pulse Ox 97.9 F 72 18 147/72 H 96 07/24/20 04:00 07/24/20 04:00 07/24/20 04:00 07/24/20 04:00 07/24/20 06:35 Laboratory Results - last 24 hr 07/23/20 06:37: Sodium 136, Potassium 3.7, Chloride 109 H, Carbon Dioxide 23, Anion Gap 7.7, BUN 13 D, Creatinine 0.80, Estimated Creat Clear 52, Estimated GFR 69, Est GFR ( Amer) 84 D, Glucose 95, Calcium 8.7, Total Creatine Kinase 767 H* D 07/23/20 06:37: NT-Pro-B Natriuret Pep 866 H 07/23/20 17:30: Urine Color Yellow, Urine Appearance Clear, Urine pH 5.5, Ur Specific [place] 1.015, Urine Protein Negative, Urine Glucose (UA) Negative, Urine Ketones Negative, Urine Blood Negative, Urine Nitrate Negative, Urine Bilirubin Negative, Urine Urobilinogen 0.2, Ur Leukocyte Esterase Negative, Urine RBC None, Urine WBC None, Ur Squamous Epith Cells None, Urine Bacteria None 07/24/20 06:25: Sodium 136, Potassium 3.7, Chloride 106, Carbon Dioxide 27, Anion Gap 6.7, BUN 13, Creatinine 0.70, Estimated Creat Clear 52, Estimated GFR 81, Est GFR ( Amer) 97, Glucose 102 H, Calcium 9.0 I & O for Last 24 hours: Intake & Output 07/21/20 07/22/20 07/23/20 07/24/20 11:59 11:59 11:59 11:59 Intake Total 360 / 360 300 / 300 Output Total 700 / 700 400 / 400 Balance -340 / -340 -100 / -100 Weight 163 lb - Constitutional no acute distress - *Routine Respiratory Exam Present: CTA bilaterally - *Routine Cardiovascular Exam Present: RRR Assessment and Plan (1) Rhabdomyolysis Status: Acute Category: Medical Code(s): M62.82 - Rhabdomyolysis (2) Fall at home Status: Acute Category: Medical Code(s): W19.XXXA - Unspecified fall, initial encounter; Y92.009 - Unspecified place in unspecified non-institutional (private) residence as the place of occurrence of the external cause (3) Polypharmacy Status: Acute Category: Medical Code(s): Z79.899 - Other group home (current) drug therapy (4) Obstructive sleep apnea Status: Acute Category: Medical Code(s): G47.33 - Obstructive sleep apnea (adult) (pediatric) (5) Hypoxia Status: Acute Category: Medical Code(s): R09.02 - Hypoxemia - Assessment and plan all Dx Assessment and Plan for all problems:: 1. Patient will be discharged to home 2. Patient will be set up with home oxygen 3. Outpatient sleep study will be arranged at follow-up 4. Patient has been advised to discontinue all sedative medicines including baclofen, sleep aids, narcotic pain medication
--- NOTE | 2020-07-24 07:08 | HMH.DCSUM ---
General - General Admission date:: 07/23/20 Discharge date: 07/24/20 HPI HPI: 80-year-old female had an unwitnessed fall at home early yesterday morning. It was unclear whether the patient hit her head. She presented to my office and while was able to ambulate and answer questions appropriately patient had fluctuating level of consciousness in the office. She seemed to be falling asleep when not being interacted with directly. Patient blamed this on her long night from her fall at home where she struck her back and then laid on the floor for several hours. However due to concern about her level of consciousness and the traumatic nature of her injury with unknown trauma to the head patient was sent over to the ER for further evaluation. Traumatic work-up was unrevealing but patient was found to have rhabdomyolysis. Patient was admitted for IV fluids. Hospital Course Hospital Course: Patient was admitted for rhabdomyolysis and then started on IV fluids of normal saline at 150 mL's per hour. Patient maintained good urine output and after an uneventful first night of admission initial plan had been to discharge the patient on the morning of the . However after eating breakfast patient was found asleep and hypoxic with O2 sats in the 70s and 80s on room air. Nursing staff had witnessed apneic episodes overnight. Patient was placed on supplemental oxygen, chest x-ray was ordered, patient was given IV Lasix 40 mg x 1. Patient diuresed well. Chest x-ray was negative for infiltrates or effusions. Patient's labs from the morning were unchanged. Patient was placed on library monitor. She maintained a sinus rhythm. She was observed throughout the day and able to be weaned from oxygen. Overnight patient was kept on 2 L of oxygen per minute which maintained her sats in the mid to high 90s. She continued to have witnessed episodes of apnea. Following morning patient had no complaints. She had rested well. Patient was discharged home. She will continue home oxygen. She will discontinue her baclofen, trazodone, Seroquel, oxycodone due to her recent fall. Objective Vital signs: Temp Pulse Resp BP Pulse Ox 97.9 F 72 18 147/72 H 96 07/24/20 04:00 07/24/20 04:00 07/24/20 04:00 07/24/20 04:00 03/12/21 06:35 no acute distress - *Routine Respiratory Exam Present: CTA bilaterally - *Routine Cardiovascular Exam Present: RRR, Normal S1, Normal S2 Results Labs on day of discharge: Labs from last 24 hours 07/24/20 07/23/20 07/23/20 06:25 17:30 06:37 Sodium 136 Potassium 3.7 Chloride 106 Carbon Dioxide 27 Anion Gap 6.7 BUN 13 Creatinine 0.70 Estimated Creat Clear 52 Estimated GFR 81 Est GFR ( Amer) 97 Glucose 102 H Calcium 9.0 NT-Pro-B Natriuret Pep 866 H Urine Color Yellow Urine Appearance Clear Urine pH 5.5 Ur Specific [place] 1.015 Urine Protein Negative Urine Glucose (UA) Negative Urine Ketones Negative Urine Blood Negative Urine Nitrate Negative Urine Bilirubin Negative Urine Urobilinogen 0.2 Ur Leukocyte Esterase Negative Urine RBC None Urine WBC None Ur Squamous Epith Cells None Urine Bacteria None DS: Diagnosis - Discharge Diagnosis (1) Rhabdomyolysis Status: Acute (2) Fall at home Status: Acute (3) Polypharmacy Status: Acute (4) Obstructive sleep apnea Status: Acute (5) Hypoxia Status: Acute Discharge Plan - Patient Discharge Instructions ACTIVITY: Continue current activity DIET: continue same diet Patient Instructions: DI for Contusion, How to Prevent Falls, DI for Rhabdomyolysis - Follow up Plan Follow up with: Kiko Pitt MD [Primary Care Provider] - 1 week Disposition: Home, Self-Residential Medications: Home Medications Medication Instructions Recorded Confirmed Type Donepezil HCl [Aricept 10mg 10 mg PO HS 06/02/1707/13
[2020-07-24 08:00] VITALS: BP 152/69; PULSE 65; PULSE 90; RESP 16; TEMP 36.5; O2SAT 100; O2SAT 95
--- NOTE | 2020-07-24 09:39 | PC.NURSE ---
PT ROOM AIR SAT IS 88% ON RA. 2LNC REAPPLIED AT THIS TIME AND O2 SAT REBOUNDED TO 96%. PT WOULD BENEFIT FROM HOME O2 UPON DISCHARGE.
--- NOTE | 2020-07-24 09:56 | SW/DCPLANNER ---
SET UP HOME O2 FOR THIS PATIENT... PATIENT'S 02 SAT ROOM AIR WAS 88% WHICH QUALIFIED HER... OFELIA PER PATIENT CHOICE WILL BE BRINGING UP A PORTABLE TANK AND SHE WILL DISCHARGE AFTER ITS DELIVERED..
== END 2020-07-24 10:50 | disposition home or self-care (01) | DRG 558 ==
LOC: ER 17:47 → 2ND 18:31
PROVIDERS: Admitting Provider Internal Medicine Adolescent Medicine; Emergency Provider Emergency Medicine; PCP Family Medicine; Visit Provider Family Medicine
DX: M62.82 Rhabdomyolysis (principal); S20.222A Contusion of left back wall of thorax, initial encounter; J44.9 Chronic obstructive pulmonary disease, unspecified; R09.02 Hypoxemia; Z79.899 Other long term (current) drug therapy; Z79.51 Long term (current) use of inhaled steroids; W18.11XA Fall from or off toilet without subsequent striking against object, initial encounter; Y92.012 Bathroom of single-family (private) house as the place of occurrence of the external cause; Z99.81 Dependence on supplemental oxygen
CPT/HCPCS: 36415; 70450; 71045; 71275; 72125; 72128; 73030; 80048; 81001; 82550; 82553; 83880; 84484; 85025; 93005; 94640; 96375; 99284; G0378; J2405; Q9967; U0003

== ENCOUNTER → 2020-08-18 14:31 | Outpatient (CLI) | payer MEDICARE, OTHER, SELFPAY ==
[2020-08-18 15:23] LABS: Basophils # 0.1 K/mm3 (0-0.2); Basophils % 0.6 % (0.1-2.0); Eosinophils # 0.3 K/mm3 (0.0-0.4); Eosinophils % 3.4 % (0.1-12.0); Hemoglobin 11.3 g/dL (12.2-16.2); Lymphocytes # 3.5 K/mm3 (0.7-4.5); Lymphocytes % 40.7 % (10-50); Mean Corpuscular HGB Conc 32.3 g/dL (31.8-35.4); Mean Corpuscular Hemoglobin 26.5 pg (27.0-31.2); Mean Platelet Volume 8.3 fl (7.4-10.4); Monocytes # 0.5 K/mm3 (0.1-1.0); Monocytes % 5.5 % (1.7-9.3); Neutrophils # 4.2 K/mm3 (1.8-7.8); Neutrophils % 49.7 % (37.0-80.0); Platelet Count 270 K/mm3 (142-424); Red Blood Count 4.28 M/mm3 (4.20-5.40); Red Cell Distribution Width 15.2 % (11.5-17.5); White Blood Count 8.5 K/mm3 (4.8-10.8)
[2020-08-18 16:48] LABS: Alanine Aminotransferase 15 U/L (12-78); Albumin Level 3.7 g/dl (3.5-5.0); Albumin/Globulin Ratio 1.4 (1.1-1.8); Alkaline Phosphatase 71 U/L (38-126); Anion Gap 12.9 mEq/L (5-15); Aspartate Amino Transferase 28 U/L (14-36); Bilirubin,Total 0.2 mg/dl (0.2-1.3); Blood Urea Nitrogen 15 mg/dl (7-17); Calcium 9.2 mg/dl (8.4-10.2); Carbon Dioxide 25 mmol/L (22.0-30.0); Chloride 97 mmol/L (98-107); Estimated Glomerular Filt Rate 69 ml/min (>60); GFR (African American) 84 ML/MIN (>60); Globulin 2.7 g/dL (1.3-3.2); Glucose 96 mg/dl (74-100); Potassium 4.9 mmoL/L (3.5-5.1); Sodium 130 mmol/L (136-145); Total Protein,Serum 6.4 g/dl (6.3-8.2)
[2020-08-18 17:03] LABS: 25-OH Vitamin D, Total 31.4 ng/mL (30-100)
== END ==
PROVIDERS: Visit Provider Internal Medicine Rheumatology
DX: L40.50 Arthropathic psoriasis, unspecified (principal); M81.0 Age-related osteoporosis without current pathological fracture; N28.9 Disorder of kidney and ureter, unspecified; Z79.899 Other long term (current) drug therapy; Z68.32 Body mass index [BMI] 32.0-32.9, adult
CPT/HCPCS: 36415; 80053; 82306; 85025

== ENCOUNTER 2020-12-09 13:00 | Outpatient (RCR) | payer MEDICARE, OTHER, SELFPAY | END 2020-12-09 13:05 | disposition home or self-care (01) | LOC: OT 13:00 | PROVIDERS: PCP Family Medicine; Visit Provider Internal Medicine Rheumatology | DX: M25.511 Pain in right shoulder (principal); M25.512 Pain in left shoulder | CPT/HCPCS: 97014; 97035; 97140; 97164; 97165; 97530; G0283 ==

== ENCOUNTER 2021-01-22 08:05 | Emergency (ER) | payer MEDICARE, OTHER, SELFPAY ==
[2021-01-22 08:05] VITALS: BP 124/80; PULSE 76; RESP 20; TEMP 36.7; O2SAT 94; BMI 29.2
--- NOTE | 2021-01-22 08:07 | PC.NURSE ---
Pt's daughter left phone number Reva Tee [phone]
--- NOTE | 2021-01-22 08:15 | CT_ITS ---
PROCEDURE: CT HEAD/BRAIN WO CON CLINICAL INDICATION: fall Injury with pain COMPARISON: CT CT HEAD/BRAIN WO CON from 07/22/2020 TECHNIQUE: Axial images obtained. All CT scans at the facility use one or more dose reduction, viz: automated exposure control, ma/kV adjustment per patient size (including targeted exams where dose is matched to indication, i.e. head), or iterative reconstruction technique. FINDINGS: No midline shift, mass effect, intracranial hemorrhage, hydrocephalus, or extra-axial fluid collection is evident. There is generalized atrophy with hypoattenuation of the periventricular white matter consistent with microangiopathic changes. The calvarium has an unremarkable appearance. No mastoid effusion. No sinus air-fluid level. Scalp soft tissue swelling is present in the left frontal area IMPRESSION: 1. No acute intracranial findings. 2. Left frontal scalp hematoma Dictated by: Triston Gaytan MD 01/22/2021 09:14 Triston Gaytan MD in [facility] 01/22/2021 09:14
--- NOTE | 2021-01-22 08:15 | CT_ITS ---
PROCEDURE: CT CERVICAL SPINE WO CON CLINICAL INDICATION: fall Neck injury with pain, contusion/abrasion or hematoma, cervical sprain/strain the COMPARISON: CT CT CERVICAL SPINE WO CON from 07/22/2020 TECHNIQUE: Axial images obtained with sagittal and coronal reformats. All CT scans at the facility use one or more dose reduction, viz: automated exposure control, ma/kV adjustment per patient size (including targeted exams where dose is matched to indication, i.e. head), or iterative reconstruction technique. Axial spiral CT scanning performed of the cervical spine beginning at the base of the skull and continuing to the upper T-spine. 3-D multiplanar reconstruction with 3-D manipulation of volumetric data set in image rendering was completed by the radiologist and/or technologist with the supervision of the radiologist on independent workstation. FINDINGS: There is an old type 2 odontoid process fracture. No malalignment. Mild ossification is present posterior to the odontoid tip. These findings are not significantly changed. There is stable mild multilevel degenerative disc disease at C2-C3, C5-C6, C6-C7, C7-T1. There is minimal anterolisthesis of C7 on T1 and T1 on T2 of 2-3 mm not significantly changed. Mild wedging involves T2 which is stable with loss of height anteriorly of 30 percent. Mild multilevel facet and uncovertebral hypertrophy with mild bilateral foraminal narrowing at C4-C5 C5-C6 and C6-C7 No acute fracture or dislocation Lung apices show no acute finding. Scattered small nodes are present in the neck. The trachea is shifted toward the right secondary to prominent right brachiocephalic artery not significantly changed. With mild loss of height of C5 and C6 not significantly changed. IMPRESSION: No acute fracture. Multilevel cervical spondylosis with chronic C2 fracture and chronic mild compression changes of C5-C6 and T2 Dictated by: Triston Gaytan MD 01/22/2021 09:20 Triston Gaytan MD in [facility] 01/22/2021 09:20
--- NOTE | 2021-01-22 08:15 | XR_ITS ---
PROCEDURE: XR KNEE RT 3V CLINICAL INDICATION: bruising, fall COMPARISON: CR KNEE3L KNEE-3 VIEWS-LT from 03/22/2013 FINDINGS: No fracture or dislocation. No lytic or blastic change. There is normal mineralization. There are tricompartmental osteoarthritic changes. Chondrocalcinosis involves the menisci. There is some soft tissue swelling in the prepatellar region and the proximal pretibial area. Other findings:None. IMPRESSION: No acute fracture Osteoarthritis with chondrocalcinosis Dictated by: Triston Gaytan MD 01/22/2021 09:32 Triston Gaytan MD in [facility] 01/22/2021 09:32
--- NOTE | 2021-01-22 08:15 | XR_ITS ---
PROCEDURE: XR FINGER RT MIN 2V CLINICAL INDICATION: fall Injury with pain COMPARISON: No exams were available for comparison FINDINGS: On the lateral exam there is a oblique lucency along the proximal aspect of the middle phalanx of the 2nd digit suggesting a nondisplaced fracture. This is not well visualized on the additional images. Please correlate as the patient's area of pain and tenderness. There are osteoarthritic changes at the 1st metacarpal-carpal joint with lateral subluxation of the 1st metacarpal and extra-articular ossicle at that region. Osteoarthritis also noted at the DIP joint of the 3rd digit Other findings:None. IMPRESSION: Suspected oblique nondisplaced fracture proximal aspect of the middle phalanx of the 2nd digit Dictated by: Triston Gaytan MD 01/22/2021 09:37 Triston Gaytan MD in [facility] 01/22/2021 09:37
--- NOTE | 2021-01-22 08:15 | XR_ITS ---
PROCEDURE: XR SHOULDER LT MIN 2V CLINICAL INDICATION: pain, fall COMPARISON: CR SHOULDCMRT XR shoulder RT min 2V from 09/05/2017 CR SHOULDCMLT XR shoulder LT min 2V from 09/05/2017 CR XR SHOULDER RT MIN 2V from 10/11/2019 CR XR SHOULDER LT MIN 2V from 07/22/2020 FINDINGS: No fracture or dislocation. No lytic or blastic change. There is normal mineralization. There is severe left subacromial stenosis with high-riding humeral head and loss of the subacromial joint space consistent with left-sided rotator cuff tear. This is slightly worse compared to 07/22/2020. Other findings:None. IMPRESSION: No acute fracture. Severe subacromial stenosis with high-riding humeral head consistent with rotator cuff tear with osteoarthritic change Dictated by: Triston Gaytan MD 01/22/2021 09:31 Triston Gaytan MD in [facility] 01/22/2021 09:31
--- NOTE | 2021-01-22 08:16 | CT_ITS ---
PROCEDURE: CT FACIAL BONES WO CON CLINICAL HISTORY: fall, facial injury COMPARISON: CT CT HEAD/BRAIN WO CON from 07/22/2020 TECHNIQUE: Axial images obtained with sagittal and coronal reformats. All CT scans at the facility use one or more dose reduction, viz: automated exposure control, ma/kV adjustment per patient size (including targeted exams where dose is matched to indication, i.e. head), or iterative reconstruction technique. FINDINGS: There is a small scalp hematoma in the left frontal area. No sinus air-fluid level. No obvious facial fracture. Status post bilateral lens replacement. The orbits have an otherwise unremarkable appearance. IMPRESSION: Left frontal scalp hematoma otherwise negative Dictated by: Triston Gaytan MD 01/22/2021 09:24 Triston Gaytan MD in [facility] 01/22/2021 09:24
--- NOTE | 2021-01-22 08:16 | HMH.EDGENADL ---
ED Disposition Clinical Impression: Forehead laceration Qualifiers: Encounter type: initial encounter Qualified Code(s): S01.81XA - Laceration without foreign body of other part of head, initial encounter Contusion of right knee Qualifiers: Encounter type: initial encounter Qualified Code(s): S80.01XA - Contusion of right knee, initial encounter Contusion of left shoulder Qualifiers: Encounter type: initial encounter Qualified Code(s): S40.012A - Contusion of left shoulder, initial encounter Rotator cuff arthropathy Qualifiers: Laterality: left Qualified Code(s): M12.812 - Other specific arthropathies, not elsewhere classified, left shoulder Fall Qualifiers: Encounter type: initial encounter Qualified Code(s): W19.XXXA - Unspecified fall, initial encounter Fracture of phalanx of right index finger Qualifiers: Encounter type: initial encounter Fracture type: closed Phalanx: middle Fracture alignment: nondisplaced Qualified Code(s): S62.650A - Nondisplaced fracture of middle phalanx of right index finger, initial encounter for closed fracture Disposition: Home, Self-Care Condition on Discharge: Fair Instructions: DI for Laceration Repair, DI for Contusion, How to Prevent Falls, DI for Closed Head Injury, DI for Finger Fracture Additional Instructions: Tylenol as needed for pain. Ice 20 minutes 4-5 times a day for swelling. Keep splint on finger until follow-up with orthopedics. Call orthopedics, Dr. Truong, to schedule follow-up appointment to be seen within 1 week for finger fracture. Additional instructions for FACIAL LACERATION: Clean the wound daily with soap and water. You may shower. Apply a thin film of antibiotic ointment such as neosporin or triple antibiotic after showering. Avoid submerging the wound, no swimming. See your primary care physician or return to the [facility] in 7 days for suture removal. The [facility] is open 9AM to 9 PM, 7 days a week. Return if any signs of infection including increasing pain, pus drainage, swelling, redness, red streaks, or fever. Additional instructions for HEAD INJURY: See your physician as soon as possible for further evaluation. Return immediately if severe headache, vomiting, problems with vision or speech, numbness or weakness of the extremities, or severe neck pain. Referrals: Provider,Referral, [Referring] - Jose Martin Truong MD [Staff Physician] - - Critical Care Critical Care Time: No Attestation: On , the high probability of a clinically significant, sudden or life threatening deterioration of the following system(s) required my full and direct attention, intervention and personal management. The time I documented below is in addition to time spent performing reported procedures but includes the following listed in this critical care notation. Medical Decision Making - Chidi Inquiry Pt receiving controlled substance: No Vital Signs: 01/22/21 08:05 Temperature 98.1 F Temperature Source Oral Pulse Rate [Right Radial] 76 Respiratory Rate 20 Blood Pressure [Right Arm] 124/80 Blood Pressure Mean [Right Arm] 94 Blood Pressure Source [Right Arm] Automatic Cuff Blood Pressure Position [Right Arm] Sitting 02 Sat by Pulse Oximetry 94 L Oxygen Delivery Method Room Air Orders (Tests/Meds): ED MEDICATIONS Discontinued Medications Generic Name Dose Route Start Last Admin Trade Name Freq PRN Reason Stop Dose Admin Lidocaine/Epinephrine 20 ml 01/22/21 08:35 01/22/21 09:16 Lidocaine 1% W/Epi 1:100,000 20ml Vial SQ 01/22/21 08:36 5 cc ONCE ONE Administration Tetanus/Diphtheria Toxoids 0.5 ml 01/22/21 08:28 01/22/21 09:15 Tetanus-Diphth Toxoid, Adult 0.5ml Syr IM 01/22/21 08:29 0.5 ml .ONCE ONE Administration - Radiology Data #1 Image(s): Chest, Shoulder, Finger(s)/Thumb, Pelvis, Knee Image Reviewed: Yes I have reviewed radiologist's interpretation PROCEDURE: XR
--- NOTE | 2021-01-22 08:18 | PC.NURSE ---
notified rad of orders on pt, spoke with Jacobo
--- NOTE | 2021-01-22 08:27 | PC.NURSE ---
Pt to rad
--- NOTE | 2021-01-22 08:29 | XR_ITS ---
PROCEDURE: XR CHEST AP CLINICAL HISTORY: fall Pain COMPARISON: CR XR CHEST AP from 10/11/2019 CR XR CHEST PORTABLE from 04/24/[address] ANGIO CHEST from 07/22/2020 CR XR CHEST PORTABLE from 07/23/2020 FINDINGS: Unremarkable cardiovascular structures. There are old left-sided rib fractures. Pleural thickening noted in the right mid lower lung zone laterally. No acute infiltrate pneumothorax or effusion. Postsurgical changes right distal clavicle with high-riding humeral heads on both sides. IMPRESSION: No acute findings. Dictated by: Triston Gaytan MD 01/22/2021 09:29 Triston Gaytan MD in [facility] 01/22/2021 09:29
--- NOTE | 2021-01-22 08:29 | XR_ITS ---
PROCEDURE: XR PELVIS 1-2V CLINICAL INDICATION: fall Pain COMPARISON: CR XR PELVIS 1-2V from 10/11/2019 TECHNIQUE: XR Pelvis AP View FINDINGS: No fracture or dislocation is evident. Mild osteoarthritic change of the hips Numerous pelvic phleboliths IMPRESSION: No acute findings. Dictated by: Triston Gaytan MD 01/22/2021 09:27 Triston Gaytan MD in [facility] 01/22/2021 09:27
--- NOTE | 2021-01-22 09:04 | PC.NURSE ---
pt return from CT
[2021-01-22 09:30] VITALS: BP 138/65; PULSE 61; O2SAT 96
[2021-01-22 10:00] VITALS: BP 116/54; PULSE 58; RESP 16; O2SAT 96
[2021-01-22 10:44] VITALS: BP 132/74; PULSE 78; RESP 16; TEMP 36.6; O2SAT 98
== END 2021-01-22 10:46 | disposition home or self-care (01) ==
PROVIDERS: Emergency Provider Emergency Medicine; PCP Family Medicine
DX: S01.81XA Laceration without foreign body of other part of head, initial encounter (principal); S80.01XA Contusion of right knee, initial encounter; S40.012A Contusion of left shoulder, initial encounter; S62.650A Nondisplaced fracture of middle phalanx of right index finger, initial encounter for closed fracture; Z23 Encounter for immunization; J44.9 Chronic obstructive pulmonary disease, unspecified; W18.12XA Fall from or off toilet with subsequent striking against object, initial encounter; Y92.012 Bathroom of single-family (private) house as the place of occurrence of the external cause
CPT/HCPCS: 12053; 70450; 70486; 71045; 72125; 72170; 73030; 73140; 73562; 90471; 90714; 99284

== ENCOUNTER 2021-01-29 12:59 | Emergency (ER) | payer MEDICARE, OTHER, SELFPAY ==
[2021-01-29 13:50] VITALS: BP 181/82; PULSE 55; RESP 18; TEMP 36.6; O2SAT 97; BMI 32.1
[2021-01-29 14:14] VITALS: BP 181/82; PULSE 55; RESP 18; TEMP 36.6; O2SAT 97
== END 2021-01-29 14:15 | disposition home or self-care (01) ==
PROVIDERS: Emergency Provider Nurse Practitioner Family; PCP Family Medicine
DX: S01.81XD Laceration without foreign body of other part of head, subsequent encounter (principal)
CPT/HCPCS: G0463; 99202

== ENCOUNTER → 2021-02-15 13:44 | Outpatient (CLI) | payer MEDICARE, OTHER, SELFPAY ==
[2021-02-15 14:18] LABS: Basophils # 0.1 K/mm3 (0-0.2); Basophils % 1.2 % (0.1-2.0); Eosinophils # 0.3 K/mm3 (0.0-0.4); Eosinophils % 4.4 % (0.1-12.0); Hematocrit 37.5 % (37.0-47.0); Hemoglobin 11.9 g/dL (12.2-16.2); Lymphocytes % 41.5 % (10-50); Mean Corpuscular HGB Conc 31.7 g/dL (31.8-35.4); Mean Corpuscular Hemoglobin 27.2 pg (27.0-31.2); Mean Platelet Volume 8.9 fl (7.4-10.4); Monocytes # 0.6 K/mm3 (0.1-1.0); Monocytes % 7.9 % (1.7-9.3); Neutrophils # 3.2 K/mm3 (1.8-7.8); Platelet Count 321 K/mm3 (142-424); Red Blood Count 4.36 M/mm3 (4.20-5.40); Red Cell Distribution Width 14.3 % (11.5-17.5); White Blood Count 7.2 K/mm3 (4.8-10.8)
[2021-02-15 14:38] LABS: Alanine Aminotransferase 12 U/L (12-78); Albumin Level 3.5 g/dl (3.5-5.0); Albumin/Globulin Ratio 1.1 (1.1-1.8); Alkaline Phosphatase 73 U/L (38-126); Anion Gap 13.6 mEq/L (5-15); Aspartate Amino Transferase 27 U/L (14-36); Bilirubin,Total 0.2 mg/dl (0.2-1.3); Blood Urea Nitrogen 15 mg/dl (7-17); Calcium 9.6 mg/dl (8.4-10.2); Carbon Dioxide 27 mmol/L (22.0-30.0); Chloride 103 mmol/L (98-107); Estimated Glomerular Filt Rate 48 ml/min (>60); GFR (African American) 58 ML/MIN (>60); Globulin 3.1 g/dL (1.3-3.2); Glucose 107 mg/dl (74-100); Potassium 4.6 mmoL/L (3.5-5.1); Sodium 139 mmol/L (136-145); Total Protein,Serum 6.6 g/dl (6.3-8.2)
== END ==
PROVIDERS: Visit Provider Internal Medicine Rheumatology
DX: K21.9 Gastro-esophageal reflux disease without esophagitis (principal); K76.89 Other specified diseases of liver; L40.50 Arthropathic psoriasis, unspecified; M25.511 Pain in right shoulder; M79.7 Fibromyalgia
CPT/HCPCS: 36415; 80053; 85025

== ENCOUNTER → 2021-03-19 09:32 | Outpatient (CLI) | payer MEDICARE, OTHER, SELFPAY ==
--- NOTE | 2021-03-19 09:37 | XR_ITS ---
PROCEDURE: XR HAND RT MIN 3V CLINICAL INDICATION: RT hand Pain COMPARISON: CR XR FINGER RT MIN 2V from 01/22/2021 FINDINGS: No fracture or dislocation. No lytic or blastic change. There is normal mineralization. Severe osteoarthritic changes are present at the 1st carpal metacarpal junction with mild lateral subluxation of the 1st metacarpal and subchondral cystic changes base of the 1st metacarpal. Osteoarthritic changes are present at DIP joints of the 3rd and 4th finger Other findings:None. IMPRESSION: Osteoarthritis, no acute fracture apparent Dictated by: Triston Gaytan MD 03/19/2021 11:38 Triston Gaytan MD in [facility] 03/19/2021 11:38
== END ==
PROVIDERS: PCP Family Medicine; Visit Provider Orthopaedic Surgery
DX: S62.600A Fracture of unspecified phalanx of right index finger, initial encounter for closed fracture (principal)
CPT/HCPCS: 73130

== ENCOUNTER → 2021-07-20 13:06 | Outpatient (CLI) | payer MEDICARE, OTHER, SELFPAY ==
[2021-07-20 14:02] LABS: Basophils % 0.9 % (0.1-2.0); Eosinophils % 1.6 % (0.1-12.0); Hematocrit 37.5 % (37.0-47.0); Hemoglobin 11.8 g/dL (12.2-16.2); Lymphocytes % 27.7 % (10-50); Mean Corpuscular HGB Conc 31.4 g/dL (31.8-35.4); Mean Corpuscular Hemoglobin 26.9 pg (27.0-31.2); Mean Corpuscular Volume 85.7 fl (81-99); Mean Platelet Volume 8.4 fl (7.4-10.4); Monocytes % 5.6 % (1.7-9.3); Neutrophils % 64.2 % (37.0-80.0); Platelet Count 305 K/mm3 (142-424); Red Blood Count 4.37 M/mm3 (4.20-5.40); Red Cell Distribution Width 16.5 % (11.5-17.5)
[2021-07-20 14:03] LABS: Basophils # 0.1 K/mm3 (0-0.2); Eosinophils # 0.2 K/mm3 (0.0-0.4); Lymphocytes # 2.8 K/mm3 (0.7-4.5); Monocytes # 0.6 K/mm3 (0.1-1.0); Neutrophils # 6.4 K/mm3 (1.8-7.8)
[2021-07-20 14:23] LABS: Alanine Aminotransferase 14 U/L (12-78); Albumin Level 3.9 g/dl (3.5-5.0); Albumin/Globulin Ratio 1.4 (1.1-1.8); Alkaline Phosphatase 70 U/L (38-126); Anion Gap 12.2 mEq/L (5-15); Aspartate Amino Transferase 25 U/L (14-36); Bilirubin,Total 0.3 mg/dl (0.2-1.3); Blood Urea Nitrogen 21 mg/dl (7-17); Calcium 8.9 mg/dl (8.4-10.2); Carbon Dioxide 29 mmol/L (22.0-30.0); Chloride 102 mmol/L (98-107); Estimated Glomerular Filt Rate 53 ml/min (>60); GFR (African American) 64 ML/MIN (>60); Globulin 2.7 g/dL (1.3-3.2); Glucose 96 mg/dl (74-100); Potassium 5.2 mmoL/L (3.5-5.1); Sodium 138 mmol/L (136-145); Total Protein,Serum 6.6 g/dl (6.3-8.2)
== END ==
PROVIDERS: Visit Provider Internal Medicine Rheumatology
DX: K21.9 Gastro-esophageal reflux disease without esophagitis (principal); L40.50 Arthropathic psoriasis, unspecified; M79.7 Fibromyalgia; M81.0 Age-related osteoporosis without current pathological fracture; M25.511 Pain in right shoulder
CPT/HCPCS: 36415; 80053; 85025

== ENCOUNTER → 2021-08-19 13:15 | Outpatient (CLI) | payer MEDICARE, OTHER, SELFPAY ==
[2021-08-19 14:22] LABS: Basophils # 0.2 K/mm3 (0-0.2); Basophils % 2.6 % (0.1-2.0); Eosinophils # 0.1 K/mm3 (0.0-0.4); Hematocrit 36.6 % (37.0-47.0); Hemoglobin 11.7 g/dL (12.2-16.2); Lymphocytes # 2.4 K/mm3 (0.7-4.5); Lymphocytes % 33.9 % (10-50); Mean Corpuscular HGB Conc 31.8 g/dL (31.8-35.4); Mean Corpuscular Hemoglobin 27.5 pg (27.0-31.2); Mean Corpuscular Volume 86.4 fl (81-99); Mean Platelet Volume 8.5 fl (7.4-10.4); Monocytes # 0.5 K/mm3 (0.1-1.0); Monocytes % 6.5 % (1.7-9.3); Neutrophils # 3.9 K/mm3 (1.8-7.8); Neutrophils % 54.9 % (37.0-80.0); Platelet Count 268 K/mm3 (142-424); Red Blood Count 4.24 M/mm3 (4.20-5.40); Red Cell Distribution Width 16.8 % (11.5-17.5)
[2021-08-19 14:56] LABS: Chloride 99 mmol/L (98-107); Potassium 4.6 mmoL/L (3.5-5.1); Sodium 136 mmol/L (136-145)
[2021-08-19 14:58] LABS: Blood Urea Nitrogen 18 mg/dl (7-17); Estimated Glomerular Filt Rate 60 ml/min (>60); GFR (African American) 73 ML/MIN (>60)
[2021-08-19 14:59] LABS: Alanine Aminotransferase 19 U/L (12-78); Albumin Level 3.7 g/dl (3.5-5.0); Albumin/Globulin Ratio 1.4 (1.1-1.8); Alkaline Phosphatase 81 U/L (38-126); Anion Gap 10.6 mEq/L (5-15); Aspartate Amino Transferase 28 U/L (14-36); Bilirubin,Total 0.5 mg/dl (0.2-1.3); Calcium 8.8 mg/dl (8.4-10.2); Carbon Dioxide 31 mmol/L (22.0-30.0); Globulin 2.7 g/dL (1.3-3.2); Glucose 92 mg/dl (74-100); Total Protein,Serum 6.4 g/dl (6.3-8.2)
[2021-08-19 15:14] LABS: 25-OH Vitamin D, Total 35.9 ng/mL (30-100)
== END ==
PROVIDERS: Visit Provider Internal Medicine Rheumatology
DX: L40.50 Arthropathic psoriasis, unspecified (principal); Z79.899 Other long term (current) drug therapy
CPT/HCPCS: 36415; 80053; 82306; 85025

== ENCOUNTER 2022-04-08 12:09 | Emergency (ER) | payer MEDICARE, OTHER, SELFPAY ==
--- NOTE | 2022-04-08 12:29 | ECG_ITS ---
APPROVED REPORT Exam: Resting ECG HR:48 bpm ECG Measurements Heart Rate 48 AXES MS 181 P 25 QRSd 93 QRS 13 QT 509 T 46 QTc 474 Conclusion SINUS BRADYCARDIA PROLONGED QT INTERVAL ABNORMAL ECG UNCONFIRMED REPORT Electronically signed by : Kiko Simpson MD 04/08/2022 16:21:30
--- NOTE | 2022-04-08 12:53 | XR_ITS ---
FINAL REPORT CLINICAL HISTORY: soa COMPARISON: 01/22/2021 FINDINGS: A single view of the chest was obtained. The heart is enlarged. The mediastinum is unremarkable. There is no active disease. There is no pleural effusion. There is no pneumothorax. Multiple chronic right rib fractures are seen. Degenerative changes are seen in both shoulders. IMPRESSION: No acute cardiopulmonary process. Reviewed, Interpreted and Dictated by Randall Victor III, MD Transcribed by Rachel Garcia Authenticated and [facility]
[2022-04-08 12:56] VITALS: BP 218/86; PULSE 49; RESP 18; TEMP 36.9; O2SAT 99; BMI 28.1
[2022-04-08 13:23] LABS: Coronavirus 19, PCR Not Detected (NotDetected); Influenza A, PCR Not Detected (NotDetected); Influenza B, PCR Not Detected (NotDetected)
[2022-04-08 13:27] LABS: Chloride 103 mmol/L (98-107)
[2022-04-08 13:28] LABS: Potassium 4.4 mmoL/L (3.5-5.1); Sodium 136 mmol/L (136-145)
[2022-04-08 13:30] LABS: Alanine Aminotransferase 34 U/L (12-78); Alkaline Phosphatase 131 U/L (38-126); Anion Gap 9.4 mEq/L (5-15); Aspartate Amino Transferase 93 U/L (14-36); Blood Urea Nitrogen 18 mg/dl (7-17); Carbon Dioxide 28 mmol/L (22.0-30.0); Creatinine Clearance Estimated 48 mL/min (50-200); Estimated Glomerular Filt Rate 60 ml/min (>60); GFR (African American) 73 ML/MIN (>60)
[2022-04-08 13:31] LABS: Albumin Level 3.4 g/dl (3.5-5.0); Albumin/Globulin Ratio 1.1 (1.1-1.8); Calcium 8.2 mg/dl (8.4-10.2); Globulin 3.1 g/dL (1.3-3.2); Glucose 90 mg/dl (74-100); Total Protein,Serum 6.5 g/dl (6.3-8.2)
[2022-04-08 13:38] LABS: Bilirubin,Total 0.1 mg/dl (0.2-1.3)
[2022-04-08 13:40] LABS: NT Pro Brain Natriuretic Pep. 302 pg/mL (0-450)
[2022-04-08 13:44] LABS: Basophils # 0.1 K/mm3 (0-0.2); Basophils % 0.9 % (0.1-2.0); Eosinophils # 0.3 K/mm3 (0.0-0.4); Eosinophils % 2.8 % (0.1-12.0); Hematocrit 34.5 % (37.0-47.0); Hemoglobin 10.4 g/dL (12.2-16.2); Lymphocytes # 2.3 K/mm3 (0.7-4.5); Lymphocytes % 23.9 % (10-50); Mean Corpuscular Hemoglobin 26.8 pg (27.0-31.2); Mean Corpuscular Volume 89.4 fl (81-99); Mean Platelet Volume 7.3 fl (7.4-10.4); Monocytes # 0.5 K/mm3 (0.1-1.0); Monocytes % 5.4 % (1.7-9.3); Neutrophils # 6.4 K/mm3 (1.8-7.8); Neutrophils % 67.1 % (37.0-80.0); Platelet Count 312 K/mm3 (142-424); Red Blood Count 3.86 M/mm3 (4.20-5.40); Red Cell Distribution Width 16.5 % (11.5-17.5); White Blood Count 9.6 K/mm3 (4.8-10.8)
[2022-04-08 13:46] LABS: Troponin I < 0.01 ng/ml (0.00-0.034)
[2022-04-08 13:52] VITALS: BP 180/89; PULSE 54; RESP 18; O2SAT 100
--- NOTE | 2022-04-08 14:16 | HMH.EDGENADL ---
Discharge Plan Disposition Chief Complaint: Upper Respiratory Infection Prescriptions Prescriptions: No Action duloxetine 30 mg capsule,delayed release(DR/EC) 30 mg PO DAILY albuterol sulfate 90 mcg/actuation HFA aerosol inhaler 2 puff INHALATION BID oxycodone 10 MG tablet 10 mg PO TIDP PRN (Reason: Moderate Pain) esomeprazole magnesium 20 MG capsule,delayed release(DR/EC) 40 mg PO DAILY metoprolol succinate 50 MG tablet 50 mg PO HS folic acid 0.4 MG tablet 1 mg PO DAILY ropinirole 1 MG tablet 2 mg PO 1600 Label Comments: 1-3 hours before bedtime donepezil 10 MG tablet 10 mg PO HS simvastatin 20 MG tablet 20 mg PO HS Label Comments: TAKE 1 TABLET ONCE A DAY IN THE EVENING baclofen 10 MG tablet 10 mg PO HSP PRN (Reason: MUSCLE SPASMS) methotrexate sodium 2.5 MG tablet 7.5 mg PO WEEKLY umeclidinium-vilanterol 1 EACH blister with device 1 inh IH DAILY Referrals Follow up/Referrals: Sherri Wild MD [Primary Care Provider] - See instructions Discharge ED Provider: Delmer Chan General Adult HPI General Chief complaint: Upper Respiratory Infection Stated complaint: sob, back pain, chest congestion Time Seen by Provider: 04/08/22 12:48 Mode of Arrival: Wheelchair Source of Information: Patient and Relative Limitations: No Limitations Description of Symptoms (Recalled from ER Triage Doc. by RN): pateint and daughter state she has been sick for 2 days.She states she has a dry cough and weakness. She states it hurts in her ribs when she coughs. History of Present Illness HPI narrative: Patient presents with a 2-day history of dry cough and generalized body aches. She has some discomfort to her chest wall and back when she coughs. She describes symptoms as moderate. There is been no associated fever, vomiting or diarrhea. Related Data Home Medications Medication Instructions Recorded Confirmed donepezil 10 mg tablet 10 mg PO HS DEMENTIA 06/02/17 03/19/21 esomeprazole magnesium 20 mg 40 mg PO DAILY acid reflux 06/02/17 03/19/21 capsule,delayed release folic acid 400 mcg tablet 1 mg PO DAILY methotrexate rescue 06/02/17 03/19/21 metoprolol succinate 50 mg 50 mg PO HS Hypertension 06/02/17 03/19/21 tablet,extended release 24 hr ropinirole 1 mg tablet 2 mg PO 1600 Restless leg syndrome 06/02/17 03/19/21 oxycodone 10 mg tablet 10 mg PO TIDP PRN Moderate Pain 06/16/17 03/19/21 simvastatin 20 mg tablet 20 mg PO HS Cholesterol 06/07/18 03/19/21 albuterol sulfate 90 mcg/actuation 2 puff inhalation BID COPD 07/15/19 03/19/21 aerosol inhaler duloxetine 30 mg capsule,delayed 30 mg PO DAILY anxiety 07/15/19 03/19/21 release baclofen 10 mg tablet 10 mg PO HSP PRN MUSCLE SPASMS 07/22/20 03/19/21 methotrexate sodium 2.5 mg tablet 7.5 mg PO WEEKLY Arthritis 07/23/20 03/19/21 umeclidinium 62.5 mcg-vilanterol 1 inh IH DAILY COPD 07/23/20 03/19/21 25 mcg/actuation powdr for inhalation Allergies Allergy/AdvReac Type Severity Reaction Status Date / Time celecoxib [From CELEBREX] Allergy Unknown [facility]19[facility]21 10[facility] Social History Smoking Status: Never smoker second hand exposure: Yes () alcohol intake: never counseling provided: provider counseling substance use type: denies use current occupational status: retired Travel in the last 8 weeks: None household members: none housing: house current occupation: homemaker ROS Obtained: Yes All systems reviewed & no additional complaints except as documented Physical Exam General General appearance: alert and in no apparent distress Head Head exam: atraumatic, normocephalic and normal inspection Eye Eye exam: Present normal appearance, PERRL and EOMI ENT ENT exam: Present normal exam, normal oropharynx, mucous membranes moist, TM's normal bilaterally and normal external ear exam Neck
[2022-04-08 14:29] VITALS: BP 161/74; PULSE 54; RESP 20; O2SAT 100
[2022-04-08 14:30] VITALS: BP 161/74; PULSE 54; RESP 16; TEMP 36.9; O2SAT 100
== END 2022-04-08 14:32 | disposition home or self-care (01) ==
PROVIDERS: Emergency Provider Emergency Medicine; PCP Family Medicine
DX: J06.9 Acute upper respiratory infection, unspecified (principal); Z79.51 Long term (current) use of inhaled steroids; Z79.899 Other long term (current) drug therapy; K21.9 Gastro-esophageal reflux disease without esophagitis; I10 Essential (primary) hypertension; G25.81 Restless legs syndrome; J44.9 Chronic obstructive pulmonary disease, unspecified; F41.9 Anxiety disorder, unspecified; M19.90 Unspecified osteoarthritis, unspecified site; Z88.8 Allergy status to other drugs, medicaments and biological substances
CPT/HCPCS: 71045; 80053; 83880; 84484; 85025; 93005; 99285; C9803; U0003; U0005

== ENCOUNTER → 2022-09-12 00:08 | Outpatient (CLI) | payer MEDICARE, OTHER, SELFPAY ==
[2022-09-12 07:45] LABS: Microscopic, Urine URINE MICROSCOPIC (MICROSCOPIC)
[2022-09-12 07:59] LABS: Appearance,Urine CLOUDY (Clear); Bilirubin,Urine Negative (Negative); Blood, Urine 2+ (Negative); Color,Urine YELLOW (Yellow); Glucose,Urine (UA) Negative (Negative); Ketones,Urine Negative (Negative); Leukocyte Esterase,Urine 2+ (Negative); Nitrate,Urine Negative (Negative); Protein,Urine 1+ (Negative); Urobilinogen,Urine 0.2 EU/dl (0.2)
[2022-09-12 08:03] LABS: Basophils % 0.3 % (0.1-2.0); Eosinophils % 2.4 % (0.1-12.0); Hematocrit 31.7 % (37.0-47.0); Hemoglobin 10.2 g/dL (12.2-16.2); Lymphocytes % 30.4 % (10-50); Mean Corpuscular HGB Conc 32.2 g/dL (31.8-35.4); Mean Corpuscular Hemoglobin 28.1 pg (27.0-31.2); Mean Corpuscular Volume 87.1 fl (81-99); Monocytes % 7.4 % (1.7-9.3); Neutrophils % 57.6 % (37.0-80.0); Platelet Count 237 K/mm3 (142-424); Red Blood Count 3.64 M/mm3 (4.20-5.40); Red Cell Distribution Width 17.3 % (11.5-17.5); White Blood Count 7.3 K/mm3 (4.8-10.8)
[2022-09-12 08:04] LABS: Eosinophils # 0.2 K/mm3 (0.0-0.4); Lymphocytes # 2.2 K/mm3 (0.7-4.5); Monocytes # 0.5 K/mm3 (0.1-1.0); Neutrophils # 4.2 K/mm3 (1.8-7.8)
[2022-09-12 08:43] LABS: Chloride 98 mmol/L (98-107); Sodium 134 mmol/L (136-145)
[2022-09-12 08:46] LABS: Blood Urea Nitrogen 21 mg/dl (7-17); Calcium 8.9 mg/dl (8.4-10.2); Carbon Dioxide 29 mmol/L (22.0-30.0); Estimated Glomerular Filt Rate 60 ml/min (>60); GFR (African American) 73 ML/MIN (>60); Glucose 73 mg/dl (74-100)
[2022-09-12 08:48] LABS: Bacteria,Urine 1+ /lpf; WBC,Urine 50-100 #/hpf (0-3)
== END ==
PROVIDERS: PCP Nurse Practitioner Family; Visit Provider Internal Medicine Adolescent Medicine
DX: N39.0 Urinary tract infection, site not specified (principal); B96.29 Other Escherichia coli [E. coli] as the cause of diseases classified elsewhere; L40.50 Arthropathic psoriasis, unspecified; Z79.899 Other long term (current) drug therapy
CPT/HCPCS: 80048; 81001; 85025; 87086; 87088; 87186

== ENCOUNTER → 2022-10-10 07:03 | Outpatient (CLI) | payer MEDICARE, OTHER, SELFPAY ==
[2022-10-10 07:28] LABS: Alanine Aminotransferase 17 U/L (12-78); Albumin Level 3.5 g/dl (3.5-5.0); Albumin/Globulin Ratio 1.3 (1.1-1.8); Alkaline Phosphatase 81 U/L (38-126); Aspartate Amino Transferase 26 U/L (14-36); Bilirubin,Total 0.3 mg/dl (0.2-1.3); Blood Urea Nitrogen 26 mg/dl (7-17); Carbon Dioxide 32 mmol/L (22.0-30.0); Chloride 97 mmol/L (98-107); Estimated Glomerular Filt Rate 60 ml/min (>60); GFR (African American) 73 ML/MIN (>60); Globulin 2.6 g/dL (1.3-3.2); Glucose 62 mg/dl (74-100); Sodium 138 mmol/L (136-145); Total Protein,Serum 6.1 g/dl (6.3-8.2)
[2022-10-10 07:31] LABS: Basophils # 0.1 K/mm3 (0-0.2); Basophils % 0.6 % (0.1-2.0); Eosinophils # 0.3 K/mm3 (0.0-0.4); Eosinophils % 2.9 % (0.1-12.0); Hematocrit 37.5 % (37.0-47.0); Hemoglobin 11.5 g/dL (12.2-16.2); Lymphocytes # 2.5 K/mm3 (0.7-4.5); Lymphocytes % 28.6 % (10-50); Mean Corpuscular HGB Conc 30.5 g/dL (31.8-35.4); Mean Corpuscular Hemoglobin 26.5 pg (27.0-31.2); Mean Corpuscular Volume 86.9 fl (81-99); Mean Platelet Volume 9.1 fl (7.4-10.4); Monocytes # 0.7 K/mm3 (0.1-1.0); Monocytes % 8.3 % (1.7-9.3); Neutrophils # 5.3 K/mm3 (1.8-7.8); Neutrophils % 59.7 % (37.0-80.0); Platelet Count 250 K/mm3 (142-424); Red Blood Count 4.32 M/mm3 (4.20-5.40); Red Cell Distribution Width 16.5 % (11.5-17.5); White Blood Count 8.9 K/mm3 (4.8-10.8)
== END ==
PROVIDERS: PCP Nurse Practitioner Family; Visit Provider Internal Medicine Adolescent Medicine
DX: I10 Essential (primary) hypertension (principal)
CPT/HCPCS: 80053; 85025

== ENCOUNTER → 2022-11-12 09:47 | Outpatient (CLI) | payer MEDICARE, OTHER, SELFPAY ==
[2022-11-12 10:08] LABS: Basophils % 0.3 % (0.1-2.0); Eosinophils # 0.3 K/mm3 (0.0-0.4); Eosinophils % 3.1 % (0.1-12.0); Hematocrit 35.5 % (37.0-47.0); Hemoglobin 11.2 g/dL (12.2-16.2); Lymphocytes # 2.2 K/mm3 (0.7-4.5); Lymphocytes % 27.3 % (10-50); Mean Corpuscular HGB Conc 31.4 g/dL (31.8-35.4); Mean Corpuscular Hemoglobin 27.2 pg (27.0-31.2); Mean Corpuscular Volume 86.6 fl (81-99); Mean Platelet Volume 8.5 fl (7.4-10.4); Monocytes # 0.6 K/mm3 (0.1-1.0); Monocytes % 7.7 % (1.7-9.3); Neutrophils # 4.9 K/mm3 (1.8-7.8); Neutrophils % 61.5 % (37.0-80.0); Platelet Count 266 K/mm3 (142-424); Red Cell Distribution Width 17.2 % (11.5-17.5)
[2022-11-12 10:25] LABS: Anion Gap 14.2 mEq/L (5-15); Blood Urea Nitrogen 14 mg/dl (7-17); Carbon Dioxide 29 mmol/L (22.0-30.0); Chloride 94 mmol/L (98-107); Estimated Glomerular Filt Rate 53 ml/min (>60); GFR (African American) 64 ML/MIN (>60); Glucose 107 mg/dl (74-100); Potassium 4.2 mmoL/L (3.5-5.1); Sodium 133 mmol/L (136-145)
== END ==
PROVIDERS: PCP Nurse Practitioner Family; Visit Provider Nurse Practitioner Family
DX: I10 Essential (primary) hypertension (principal)
CPT/HCPCS: 80048; 85025

== ENCOUNTER → 2023-02-10 22:20 | Outpatient (CLI) | payer MEDICARE, OTHER, SELFPAY ==
[2023-02-10 22:43] LABS: Basophils % 0.3 % (0.1-2.0); Eosinophils # 0.1 K/mm3 (0.0-0.4); Eosinophils % 1.4 % (0.1-12.0); Hematocrit 37.4 % (37.0-47.0); Hemoglobin 11.8 g/dL (12.2-16.2); Lymphocytes # 2.1 K/mm3 (0.7-4.5); Lymphocytes % 23.4 % (10-50); Mean Corpuscular HGB Conc 31.6 g/dL (31.8-35.4); Mean Corpuscular Hemoglobin 26.1 pg (27.0-31.2); Mean Corpuscular Volume 82.7 fl (81-99); Mean Platelet Volume 8.1 fl (7.4-10.4); Monocytes # 0.5 K/mm3 (0.1-1.0); Monocytes % 5.3 % (1.7-9.3); Neutrophils # 6.4 K/mm3 (1.8-7.8); Neutrophils % 69.7 % (37.0-80.0); Platelet Count 304 K/mm3 (142-424); Red Blood Count 4.52 M/mm3 (4.20-5.40); Red Cell Distribution Width 15.5 % (11.5-17.5); White Blood Count 9.1 K/mm3 (4.8-10.8)
[2023-02-10 23:14] LABS: Chloride 92 mmol/L (98-107)
[2023-02-10 23:15] LABS: Potassium 4.4 mmoL/L (3.5-5.1); Sodium 127 mmol/L (136-145)
[2023-02-10 23:17] LABS: Alanine Aminotransferase 15 U/L (12-78); Aspartate Amino Transferase 24 U/L (14-36); Blood Urea Nitrogen 14 mg/dl (7-17); Estimated Glomerular Filt Rate 69 ml/min (>60); GFR (African American) 83 ML/MIN (>60)
[2023-02-10 23:18] LABS: Albumin Level 3.4 g/dl (3.5-5.0); Albumin/Globulin Ratio 1.1 (1.1-1.8); Alkaline Phosphatase 161 U/L (38-126); Anion Gap 11.4 mEq/L (5-15); Bilirubin,Total 0.2 mg/dl (0.2-1.3); Carbon Dioxide 28 mmol/L (22.0-30.0); Glucose 113 mg/dl (74-100); Total Protein,Serum 6.4 g/dl (6.3-8.2)
== END ==
PROVIDERS: PCP Nurse Practitioner Family; Visit Provider Nurse Practitioner Family
DX: R31.9 Hematuria, unspecified (principal)
CPT/HCPCS: 80053; 85025

== ENCOUNTER → 2023-02-17 22:57 | Outpatient (CLI) | payer MEDICARE, OTHER, SELFPAY ==
--- OUTSIDE RECORDS SUMMARY | 2023-02-17 23:00 | XMS_ITS | Continuity of Care Document ---
Author Name Unknown Organization [facility] Address [address] [place] [address] [address] [place] [address] Phone Care Team Providers Care Manager Country Name Role Phone Zulma TYSHAWNMary Unavailable Unavailable Advance Directives Directive Yes / No Effective Date File Name No Information Encounters Encounter Description Practice Location Reason(s) For Visit Diagnoses Date Provider Providers Copied on Encounter [address] [place] [address], [id number] [place], [place] [address], [place], [place], [id number], [place] tel:[phone] [facility] No Information Zulma Mary. [place], [place], [place]. tel:[phone] Family History Family Member Type Diagnosis Age At Onset No Information Payers Payer name Insurance type Covered green party ID Authoriza tion(s) No Information Social History Type Description Quantity Date Captured Comments Sex Female Smoking Status No Information Chief Complaint And Reason For Visit No Information Reason For Referral Reason For Referral No Information History Of Present Illness Encounter Date Complaint History Of Prese nt Illness No Information Functional Status
--- OUTSIDE RECORDS SUMMARY | 2023-02-17 23:00 | XMS_ITS | Continuity of Care Document ---
Author Name Unknown Organization [facility] Address [address] [address] Phone Care Team Providers Care Meter Reader Name Role Phone Ej CHACON, Eileen Unavailable Unavailable Allergies, Adverse Reactions, Alerts Substance Reaction Status Criticality celecoxib Active No Information leflunomide Pruritus, Rash Active No Informatio n Medications Medication Instructions Dosage Effective Dates (start - stop) Status Comments Prolia 60 mg/mL subcutaneous syringe inject 1 milliliter by subcutaneous route every 6 months in the upper arm, upper thigh or abdomen 60 MG - Active M81.0 folic acid 1 mg tablet take 1 tablet by oral route every day 1 MG - Active diclofenac 1 % topical gel apply (2G) by topical route 2 times every day to the affected area(s) 2 G - Active methotrexate sodium 2.5 mg tablet take 2 tablet by oral route every week 5 MG - Active Nexium 40 mg capsule,delayed release TAKE 1 CAPSULE BY MOUTH EVERY DAY - Active Calcium Citrate + D 315 mg-5 mcg (200 unit) tablet once daily - Active meclizine 12.5 mg tablet take 1 tablet by oral route 3 geovanni
[2023-02-17 23:37] LABS: Anion Gap 11.7 mEq/L (5-15); Blood Urea Nitrogen 15 mg/dl (7-17); Calcium 9.1 mg/dl (8.4-10.2); Carbon Dioxide 26 mmol/L (22.0-30.0); Chloride 92 mmol/L (98-107); Estimated Glomerular Filt Rate 80 ml/min (>60); GFR (African American) 97 ML/MIN (>60); Glucose 99 mg/dl (74-100); Potassium 4.7 mmoL/L (3.5-5.1); Sodium 125 mmol/L (136-145)
== END ==
PROVIDERS: Nurse Practitioner Family; PCP Internal Medicine Adolescent Medicine; Visit Provider Internal Medicine Adolescent Medicine
DX: M06.9 Rheumatoid arthritis, unspecified (principal)
CPT/HCPCS: 80048

== ENCOUNTER 2023-02-20 21:20 | Observation (INO) | payer MEDICARE, OTHER, SELFPAY ==
[2023-02-20 21:20] VITALS: BP 118/67; PULSE 72; RESP 19; TEMP 36.5; O2SAT 97; BMI 26.4
--- NOTE | 2023-02-20 21:32 | ECG_ITS ---
APPROVED REPORT Exam: Resting ECG HR:73 bpm ECG Measurements Heart Rate 73 AXES FL 99 P 211 QRSd 101 QRS 21 QT 457 T 89 QTc 483 Conclusion Sinus RHYTHM WITH SHORT FL INTERVAL PROLONGED QT INTERVAL ABNORMAL ECG WARNING: DATA QUALITY MAY AFFECT INTERPRETATION UNCONFIRMED REPORT Electronically signed by : Kiko Simpson MD 02/25/2023 11:12:55
--- NOTE | 2023-02-20 22:00 | XR_ITS ---
PROCEDURE INFORMATION: Exam: XR Chest Exam date and time: 02/20/2023 10:29 PM Age: 83 years old Clinical indication: Shortness of breath; Additional info: SOA TECHNIQUE: Imaging protocol: Radiologic exam of the chest. Views: 1 view. COMPARISON: CR XR CHEST PORTABLE 04/08/2022 1:12 PM FINDINGS: Lungs: Chronic underlying interstitial lung markings. Pleural spaces: Unremarkable. No pleural effusion. No pneumothorax. Heart/Mediastinum: Unremarkable. No cardiomegaly. Vasculature: Tortuous aorta. Bones/joints: Unremarkable. IMPRESSION: No acute radiographic findings identified.
[2023-02-20 22:07] LABS: Chloride 90 mmol/L (98-107); Potassium 4.1 mmoL/L (3.5-5.1); Sodium 124 mmol/L (136-145)
[2023-02-20 22:09] LABS: Blood Urea Nitrogen 16 mg/dl (7-17); Creatinine Clearance Estimated 41 mL/min (50-200); Estimated Glomerular Filt Rate 60 ml/min (>60); GFR (African American) 72 ML/MIN (>60)
[2023-02-20 22:10] LABS: Alanine Aminotransferase 19 U/L (12-78); Albumin Level 3.4 g/dl (3.5-5.0); Alkaline Phosphatase 123 U/L (38-126); Anion Gap 14.1 mEq/L (5-15); Aspartate Amino Transferase 34 U/L (14-36); Basophils % 0.4 % (0.1-2.0); Bilirubin,Total 0.2 mg/dl (0.2-1.3); Calcium 8.5 mg/dl (8.4-10.2); Carbon Dioxide 24 mmol/L (22.0-30.0); Eosinophils # 0.2 K/mm3 (0.0-0.4); Eosinophils % 1.8 % (0.1-12.0); Globulin 3.4 g/dL (1.3-3.2); Glucose 114 mg/dl (74-100); Hematocrit 35.9 % (37.0-47.0); Hemoglobin 11.7 g/dL (12.2-16.2); Mean Corpuscular HGB Conc 32.5 g/dL (31.8-35.4); Mean Corpuscular Hemoglobin 26.4 pg (27.0-31.2); Mean Corpuscular Volume 81.3 fl (81-99); Mean Platelet Volume 7.8 fl (7.4-10.4); Monocytes # 0.5 K/mm3 (0.1-1.0); Neutrophils # 6.7 K/mm3 (1.8-7.8); Neutrophils % 71.7 % (37.0-80.0); Platelet Count 344 K/mm3 (142-424); Red Blood Count 4.41 M/mm3 (4.20-5.40); Red Cell Distribution Width 15.7 % (11.5-17.5); Total Protein,Serum 6.8 g/dl (6.3-8.2); White Blood Count 9.3 K/mm3 (4.8-10.8)
[2023-02-20 22:32] LABS: VBG Base Excess -4.4 mmol/L (-2.4-2.3); VBG HCO3 21.9 mmol/L (23-30); VBG Oxygen Saturation 92.2 % (50-70); VBG PCO2 44.9 mmol/L (35-51); VBG PH 7.31 mmol/L (7.31-7.41); VBG PO2 69.5 mmol/L (28-40); VBG Total CO2 23.3 mmol/L (23-27)
--- NOTE | 2023-02-20 22:38 | CT_ITS ---
PROCEDURE INFORMATION: Exam: CT Head Without Contrast Exam date and time: 02/20/2023 11:01 PM Age: 83 years old Clinical indication: Altered mental status/memory loss; Additional info: AMS TECHNIQUE: Imaging protocol: Computed tomography of the head without contrast. Radiation optimization: All CT scans at this facility use at least one of these dose optimization techniques: automated exposure control; mA and/or kV adjustment per patient size (includes targeted exams where dose is matched to clinical indication); or iterative reconstruction. REPORTING DATA: Count of CT and Cardiac NM exams in prior 12 months: This patient has received 0 known CTs and 0 known cardiac nuclear medicine studies in the 12 months prior to the current study. COMPARISON: CT HEAD/BRAIN WO CON 01/22/2021 8:30 AM FINDINGS: Brain: Diffuse periventricular white matter changes. Parenchymal cortical volume loss. Cerebral ventricles: No ventriculomegaly. Paranasal sinuses: Visualized sinuses are unremarkable. No fluid levels. Mastoid air cells: Visualized mastoid air cells are well aerated. Bones/joints: Unremarkable. No acute fracture. Soft tissues: Unremarkable. Other findings: Some image degradation secondary to motion artifacts. Symmetric sulcation and gyration. IMPRESSION: 1. No acute intracranial findings by CT criteria. 2. Chronic, underlying changes.
[2023-02-20 22:44] LABS: NT Pro Brain Natriuretic Pep. 477 pg/mL (0-450)
[2023-02-20 22:53] LABS: Troponin I 0.12 ng/ml (0.00-0.034)
--- NOTE | 2023-02-20 23:08 | ECG_ITS ---
APPROVED REPORT Exam: Resting ECG HR:58 bpm ECG Measurements Heart Rate 58 AXES NH 185 P 47 QRSd 96 QRS 36 QT 489 T 93 QTc 485 Conclusion SINUS BRADYCARDIA PROLONGED QT INTERVAL ABNORMAL ECG UNCONFIRMED REPORT Electronically signed by : Kiko Simpson MD 02/25/2023 11:12:09
--- NOTE | 2023-02-20 23:23 | HMH.EDGENADL ---
Discharge Plan Disposition Patient Disposition: Home, Self-Care Chief Complaint: Shortness of Breath/Dyspnea Prescriptions Prescriptions: No Action quetiapine 25 mg tablet 25 mg PO HS metoprolol succinate 50 mg tablet extended release 24 hr 50 mg PO DAILY donepezil 10 mg tablet 10 mg PO DAILY methotrexate sodium 2.5 mg tablet 2.5 mg PO DAILY ropinirole 2 mg tablet 2 mg PO HS simvastatin 20 mg tablet 20 mg PO HS esomeprazole magnesium 40 mg capsule,delayed release(DR/EC) 40 mg PO DAILY losartan 25 mg tablet 25 mg PO DAILY folic acid 1 mg tablet 1 mg PO DAILY memantine 10 mg tablet 10 mg PO BID duloxetine 30 mg capsule,delayed release(DR/EC) 30 mg PO DAILY oxycodone 10 mg tablet 10 mg PO QID Clinical Impressions Clinical Impression: Non-ST elevation AK (NSTEMI), AMS (altered mental status), Acute hyponatremia Discharge ED Provider: Delmer Clark General Adult HPI General Chief complaint: Shortness of Breath/Dyspnea Stated complaint: SOA Time Seen by Provider: 02/20/23 21:30 Mode of Arrival: EMS Source of Information: Relative and EMS Limitations: Altered Mental Status Description of Symptoms (Recalled from ER Triage Doc. by RN): EMS was called to nursing facility for SANDRA, pt doesnt normally wear oxygen and was 92% on RA. pt is 97% on 2L of o2 via nasal canannula. per ems fbs 151 and pt has recently had her nightime pain pills and is very sleepy History of Present Illness HPI narrative: 83-year-old female with history of hypertension, hyperlipidemia, COPD not on home oxygen, dementia presenting with concern for confusion, oxygen requirement. Patient has been having contractures, has been noted to have electrolyte abnormalities. Patient was last known to be normal earlier this morning on 02/20. Since that time, patient has become progressively confused. No falls, patient not on anticoagulation. Family at bedside stating that patient is usually alert, conversational, appropriate. Other history unable to be obtained secondary to confusion Related Data Home Medications Medication Instructions Recorded Confirmed donepezil 10 mg tablet 10 mg PO DAILY Memory 02/20/23 02/20/23 duloxetine 30 mg capsule,delayed 30 mg PO DAILY Mood 02/20/23 02/20/23 release esomeprazole magnesium 40 mg 40 mg PO DAILY Acid Reflux 02/20/23 02/20/23 capsule,delayed release folic acid 1 mg tablet 1 mg PO DAILY Supplement 02/20/23 02/20/23 losartan 25 mg tablet 25 mg PO DAILY High Blood Pressure 02/20/23 02/20/23 memantine 10 mg tablet 10 mg PO BID Memory 02/20/23 02/20/23 methotrexate sodium 2.5 mg tablet 2.5 mg PO DAILY Psoriatic arthritis 02/20/23 02/20/23 metoprolol succinate 50 mg 50 mg PO DAILY High Blood Pressure 02/20/23 02/20/23 tablet,extended release 24 hr oxycodone 10 mg tablet 10 mg PO QID Chronic pain 02/20/23 02/20/23 quetiapine 25 mg tablet 25 mg PO HS Psych 02/20/23 02/20/23 ropinirole 2 mg tablet 2 mg PO HS RLS 02/20/23 02/20/23 simvastatin 20 mg tablet 20 mg PO HS High Cholesterol 02/20/23 02/20/23 Allergies Allergy/AdvReac Type Severity Reaction Status Date / Time celecoxib [From CELEBREX] Allergy Unknown Verified 03/19/21 10:45 [facility] Disclaimer: The information contained in this section may have been updated after the patient was seen, as this information can be updated by other users. Medical History (Updated 02/20/23 @ 23:40 by Delmer Clark MD) Alzheimer disease COPD (chronic obstructive pulmonary disease) Fibromyalgia Hip fx Hyperlipidemia Hypertension Osteoarthritis Rheumatoid arthritis Surgical History (Updated 02/20/23 @ 22:06 by Bari Hugo RN) H/O: hysterectomy History of knee replacement Previous back surgery Social History Smoking Status: Never smoker second hand exposure: Yes () alcohol intake: never counseling provided:
--- NOTE | 2023-02-20 23:26 | PC.NURSE ---
John on for Tatiana; Paged at this time for attending
--- NOTE | 2023-02-20 23:28 | PC.NURSE ---
Attending speaking to John
--- NOTE | 2023-02-20 23:33 | PC.NURSE ---
spoke with electrician apprentice powerhouse regarding admission and bed assignment
[2023-02-20 23:47] VITALS: BP 100/54; PULSE 55; RESP 14; TEMP 36.7; O2SAT 97
--- NOTE | 2023-02-20 23:50 | PC.NURSE ---
Report to [facility]; Awaiting transport
[2023-02-21] VITALS (7 sets, daily range): BP systolic 114–145; BP diastolic 51–65; PULSE 60–80; RESP 17–20; TEMP 36.7–37.1; O2SAT 94–95; BMI 28.8
--- NOTE | 2023-02-21 00:22 | PC.NURSE ---
pt arrived to the floor via stretcher @12:10
--- NOTE | 2023-02-21 02:14 | PC.NURSE ---
critical trop not called to provider, see provider notification in worklist
[2023-02-21 04:58] LABS: Troponin I 1.46 ng/ml (0.00-0.034)
--- NOTE | 2023-02-21 05:12 | PC.NURSE ---
Since arriving to the floor the patient has rested. When first arriving to the floor the patient did complain with pain in her bilateral hip. Spoke to Dr. Lopez and since giving medication has not complained since. Patient was on 2L NC when arriving to the floor but the patient would not keep it in her nose while sleeping. Patient is 95 on RA. no other issue or concerns were stated by patient or family
--- NOTE | 2023-02-21 07:29 | P.CONPHA_ITS ---
Pharmacy Intervention Comments: MEDICATION RECONCILIATION COMPLETED ON PATIENT USING MAR FROM LONG-TERM. -STACI MURCIA, BLANCAD
--- NOTE | 2023-02-21 07:29 | HMH.PHAINT1 ---
Pharmacy Intervention Comments: MEDICATION RECONCILIATION COMPLETED ON PATIENT USING MAR FROM HALFWAY. -STACI MURCIA, BLANCAD
--- NOTE | 2023-02-21 08:21 | EXP.HP ---
History of Present Illness *Admission Date: 02/21/23 *Reason for visit:: Mental status changes *History of present illness: 83-year-old female with multiple medical problems including Alzheimer's dementia, chronic degenerative arthritis on multiple medications for pain, muscle spasms, etc., history of sundowning and confusion who was in her normal state of somewhat confused health yesterday but through the evening yesterday became increasingly somnolent above and beyond her baseline and was brought to the ER. In the ER she was somnolent, GCS 11, initial work-up was unrevealing except for slightly elevated troponins and she was admitted to the hospital for oxygen therapy and further diagnostic evaluation. This morning on rounds she is more awake and responsive, pleasant and smiles, has eaten some breakfast and her family thinks that she is back to her baseline. [facility] Disclaimer: The information contained in this section may have been updated after the patient was seen, as this information can be updated by other users. Medical History (Updated 02/21/23 @ 08:24 by Kiko Simpson MD) Alzheimer disease COPD (chronic obstructive pulmonary disease) Fibromyalgia Hip fx Hyperlipidemia Hypertension Osteoarthritis Rheumatoid arthritis Surgical History (Updated 02/20/23 @ 22:06 by Bari Hugo RN) H/O: hysterectomy History of knee replacement Previous back surgery Social History Smoking Status: Never smoker second hand exposure: Yes () alcohol intake: never counseling provided: provider counseling substance use type: denies use current occupational status: retired Travel in the last 8 weeks: None household members: none housing: house current occupation: homemaker Meds Home Medications and Allergies Home Medications Medication Instructions Recorded Confirmed Type donepezil 10 mg tablet 10 mg PO HS Memory 02/20/23 02/21/23 History duloxetine 30 mg capsule,delayed 30 mg PO HS Depression 02/20/23 02/21/23 History release esomeprazole magnesium 40 mg 40 mg PO DAILY Acid Reflux 02/20/23 02/20/23 History capsule,delayed release folic acid 1 mg tablet 1 mg PO DAILY Supplement 02/20/23 02/20/23 History losartan 25 mg tablet 25 mg PO DAILY High Blood Pressure 02/20/23 02/20/23 History memantine 10 mg tablet 10 mg PO BID Memory 02/20/23 02/20/23 History methotrexate sodium 2.5 mg tablet 7.5 mg PO MO Psoriatic arthritis 02/20/23 02/21/23 History metoprolol succinate 50 mg 50 mg PO DAILY High Blood Pressure 02/20/23 02/20/23 History tablet,extended release 24 hr oxycodone 10 mg tablet 10 mg PO DAILYP PRN Moderate Pain 02/20/23 02/21/23 History (Scale Score 5-6) ropinirole 2 mg tablet 2 mg PO 1300,2100 Restless Leg(S) 02/20/23 02/21/23 History simvastatin 20 mg tablet 20 mg PO HS Cholesterol 02/20/23 02/21/23 History acetaminophen 500 mg tablet 500 mg PO TID PRN Mild Pain (Scale 02/21/23 02/21/23 History Score 1-4) baclofen 10 mg tablet 10 mg PO HSP PRN muscle spasms 02/21/23 02/21/23 History calcium carbonate 600 mg-vitamin 1 tab PO DAILY Supplement 02/21/23 02/21/23 History D3 20 mcg (800 unit) tablet (Caltrate with Vitamin D3) cranberry 400 mg capsule 400 mg PO DAILY 02/21/23 02/21/23 History lidocaine 5 % topical patch 1 patch topical DAILY Pain 02/21/23 02/21/23 History loperamide 2 mg tablet (Imodium 2 mg PO BIDP PRN Diarrhea 02/21/23 02/21/23 History A-D) meclizine 12.5 mg tablet 12.5 mg PO BIDP PRN Nausea And 02/21/23 02/21/23 History Vomiting ondansetron 4 mg disintegrating 4 mg PO Q6HP PRN Nausea And 02/21/23 02/21/23 History tablet Vomiting oxycodone 10 mg tablet 10 mg PO TID Arthritis 02/21/23 02/21/23 History New Prescriptions to Start Prescriptions: Allergies Allergy/AdvReac Type Severity Reaction Status Date / Time celecoxib [From CELEBREX] Allergy Unknown Verified 03/19/21 10:45 Exam Da
--- NOTE | 2023-02-21 09:54 | HMH.PTEV ---
Physical Therapy Evaluation Rehab PT IP Evaluation Start: 02/21/23 08:20 Freq: ONCE Status: Active Protocol: Document 02/21/23 09:43 PHODEA (Rec: 02/21/23 09:49 PHORNE [id number]) Subjective/History History History 83 yowf adm to [facility] with AMS and possible NSTEMI. She has hx of alzheimer's dementia, HTN, HLD, fibromyalgia, RA. She lives at a SNF on personal care at baseline and she has not been ambulatory for several mos per family report. Subjective Subjective Pt with no c/o this am, agrees to mobility assessment. New diagnosis of cancer in past 12 No months? Rehab PT IP Eval Objective Appearance Patient Behavior Appropriate,Confused Patient Orientation Person,Birthday Difficulty following instructions mild Speech Pattern Clear Ambulation Patient Able to Ambulate Yes Ambulation Observation IP General Gait Pattern Observation Shuffling Step Ambulation Distance (feet) 4 Ambulation Assistive Device None Ambulation Ability Minimal x 2 (25% assist) Balance Ability to Arise Able, uses arms to help Sitting Balance Leans or slides in chair Standing Balance Unsteady Dynamic Sitting Balance Ability Fair Dynamic Standing Balance Ability Poor Transfers Bed Transfer Ability Minimal x 2 (25% assist) Chair Transfer Ability Minimal x 2 (25% assist) Sit to Stand Bed Transfer Ability Minimal x 2 (25% assist) Sit to Stand Chair Transfer Ability Minimal x 2 (25% assist) Rehab PT IP prob,goals,plan Problems Date of Evaluation: 02/21/23 PT IP Problems Bed Mobility,Transfers,Gait Rehab Potential Rehab Potential Good Plan PT Intervention Plan Bed Mobility,Transfers,Gait PT Plan Frequency Daily Duration LOS Discharge Goals Bed Transfer Ability Minimal x 1 (25% assist) Sit to Stand Chair Transfer Ability Minimal x 1 (25% assist) Ambulation Assistive Device Rolling Walker Ambulation Distance (feet) 10 Discharge Plan PT Discharge Plan Pt is currently most appropriate for rehab placement once medically stable for d/c. Eval Complexity Eval Charge Codes 38964 - High Complexity PHYSICIAN CERTIFICATION: I certify the specified therapy services for Anna Hinton are required, authorized, and reviewed every 30 days.
--- NOTE | 2023-02-21 09:59 | HMH.OTEV ---
OT Inpatient Evaluation Rehab OT IP Evaluation Start: 02/21/23 08:20 Freq: ONCE Status: Active Protocol: Document 02/21/23 09:43 CLIFWINNECONNE (Rec: 02/21/23 09:59 [facility] [id number]) Rehab OT IP Assessment Subjective History Pt oriented x 3 on arrival. Pt agreeable to engage in therapy evaluation. Pt's daughter present and supportive during evaluation. Pt admitted on 02/21/23 due to mental status change. 83- year-old female with multiple medical problems including Alzheimer's dementia, chronic degenerative arthritis on multiple medications for pain, muscle spasms, etc., history of owning and confusion who was in her normal state of somewhat confused health yesterday but through the evening yesterday became increasingly somnolent above and beyond her baseline and was brought to the ER. Prior to being in the hospital, pt lived at [facility]; personal care side. Daugther reports pt was requiring assistance with dressing and bathing. Daughter also explains she was walking minimally and usually used a walker during transfers. Pt was dependent upon staff for completion of IADLs. Subjective I can try. Objective Patient Orientation Person,Place,Birthday Upper Extremity Gross ROM Min Limitation <25% Shoulder ROM Limitations Muscle Weakness Elbow ROM Limitations Muscle Weakness Wrist Limitations of Range of Motion Muscle Weakness Bed Mobility bed mobility-scooting,bed mobility - supine/sit Assist Level Minimal x 2 (25% assist) Transfer Training Sit/Stand/Step Transfer Assist Level Minimal x 2 (25% assist) Rehab OT IP prob,goals,plan Problems Date of Evaluation: 02/21/23 OT IP Problems Bed Mobility,Transfers,Balance ,Self care,Safety Rehab P
--- NOTE | 2023-02-21 11:45 | SW/DCPLANNER ---
This patient currently resides at [facility] level of care. PT/OT was consulted during admission and recommended SNF level of care at time of discharge. I did have a discussion w/ Nevaeh from [place]: the plan for this patient is to return to [facility] level [facility] under private pay. Patient and family are agreeable to discharge plan. I have updated Dr Simpson.
--- NOTE | 2023-02-21 13:00 | EXP.DC.SUM ---
General Admission date:: 02/21/23 Discharge date: 02/21/23 HPI HPI HPI: 83-year-old female with multiple medical problems including Alzheimer's dementia, chronic degenerative arthritis on multiple medications for pain, muscle spasms, etc., history of sundowning and confusion who was in her normal state of somewhat confused health yesterday but through the evening yesterday became increasingly somnolent above and beyond her baseline and was brought to the ER. In the ER she was somnolent, GCS 11, initial work-up was unrevealing except for slightly elevated troponins and she was admitted to the hospital for oxygen therapy and further diagnostic evaluation. This morning on rounds she is more awake and responsive, pleasant and smiles, has eaten some breakfast and her family thinks that she is back to her baseline. Hospital Course Hospital Course Hospital Course: Patient was admitted, had evidence of very minimal troponin elevation and the diagnosis of non-STEMI was considered however given her advanced age and asymptomatic status I am not sure working this up would be indicated and the family agrees. Other labs were nondiagnostic of her confusion. Her CT scan showed no changes over baseline. Overnight she perked up very nicely and this morning is really back to her baseline, eating and responsive as she was at the personal-care facility. PT and OT evaluated her and felt that she would benefit from PT at the extended care facility and she will be moved to an [facility] waiting instead of the personal-care wing where she will be able to obtain PT and some more aggressive nursing care and safety measures given her multiple falls. Family has affirmed that she will be a DNR status going forward. Main focus will be on palliative/comfort care. We will continue her current narcotic pain medications and other medications as noted. Exam Data for Last 24 hours Vital signs and Labs for Last 24 Hours: Temp Pulse Resp BP Pulse Ox O2 Del Method O2 Flow Rate 98.1 F 65 18 145/51 H 95 Room Air 1 02/21/23 11:42 02/21/23 12:00 02/21/23 11:42 02/21/23 11:42 02/21/23 11:42 02/21/23 12:31 02/21/23 03:00 Laboratory Results - last 24 hr 02/20/23 21:42: WBC 9.3, RBC 4.41, Hgb 11.7 L, Hct 35.9 L, MCV 81.3, MCH 26.4 L, MCHC 32.5, RDW 15.7, Plt Count 344, MPV 7.8, Neut % (Auto) 71.7, Lymph % (Auto) 21.0, [place] % (Auto) 5.0, Eos % (Auto) 1.8, Baso % (Auto) 0.4, Neut # (Auto) 6.7, Lymph # (Auto) 2.0, [place] # (Auto) 0.5, Eos # (Auto) 0.2, Baso # (Auto) 0.0, Sodium 124 L, Potassium 4.1, Chloride 90 L, Carbon Dioxide 24, Anion Gap 14.1, BUN 16, Creatinine 0.90 D, Estimated Creat Clear 41, Estimated GFR 60, Est GFR ( Amer) 72 D, Glucose 114 H, Lactate 2.0, Calcium 8.5, Total Bilirubin 0.2, AST 34, ALT 19, Alkaline Phosphatase 123, Troponin I 0.12 H, NT-Pro-B Natriuret Pep 477 H, Total Protein 6.8, Albumin 3.4 L, Globulin 3.4 H, Albumin/Globulin Ratio 1.0 L 02/20/23 22:20: VBG pH 7.31, VBG pCO2 44.9, VBG pO2 69.5 H, VBG HCO3 21.9 L, VBG Total CO2 23.3, VBG O2 Saturation 92.2 H, VBG Base Excess -4.4 L 02/21/23 01:30: Troponin I 1.50 H 02/21/23 04:26: Troponin I 1.46 H I & O for Last 24 hours: Intake & Output 02/19/23 02/20/23 02/21/23 02/22/23 11:59 11:59 11:59 11:59 Intake Total 120 / 120 Output Total 0 / 0 Balance 120 / 120 Weight 147 lb 1.6 oz Constitutional Constitutional: no acute distress *Routine HEENT Exam Head: Present normocephalic Eye: Present EOMI and PERRL ENT: Present mucous membranes moist *Routine Neck Exam Neck: Present supple; Absent lymphadenopathy *Routine Respiratory Exam Respiratory: Present CTA bilaterally *Routine Cardiovascular Exam Cardiovascular: Present RRR *Routine Abdominal Exam Abdominal: Present soft and normoactive bowel sounds; Absent tenderness *Routine Extremities Exam Extremities: Absent cyanosis, clubbing or edema Comments: Multiple joint deformities consistent with her previous history of ar
== END 2023-02-21 14:20 ==
LOC: ER 21:31 → 2ND 23:40
PROVIDERS: Admitting Provider Family Medicine; Emergency Provider Emergency Medicine; PCP Internal Medicine Adolescent Medicine; Visit Provider Internal Medicine Adolescent Medicine
DX: G30.9 Alzheimer's disease, unspecified (principal); F02.80 Dementia in other diseases classified elsewhere, unspecified severity, without behavioral disturbance, psychotic disturbance, mood disturbance, and anxiety; M06.9 Rheumatoid arthritis, unspecified; R41.82 Altered mental status, unspecified; Z79.899 Other long term (current) drug therapy; J44.9 Chronic obstructive pulmonary disease, unspecified; I10 Essential (primary) hypertension; E78.5 Hyperlipidemia, unspecified; R06.9 Unspecified abnormalities of breathing; L40.50 Arthropathic psoriasis, unspecified; M24.50 Contracture, unspecified joint
CPT/HCPCS: 36415; 70450; 71045; 80053; 82803; 83605; 83880; 84484; 85025; 87040; 93005; 97163; 97166; 97530; 99285; G0378

== ENCOUNTER → 2023-03-21 06:54 | Outpatient (CLI) | payer MEDICARE, OTHER, SELFPAY ==
[2023-03-21 08:04] LABS: Anion Gap 12.5 mEq/L (5-15); Blood Urea Nitrogen 8 mg/dl (7-17); Calcium 8.5 mg/dl (8.4-10.2); Carbon Dioxide 26 mmol/L (22.0-30.0); Chloride 88 mmol/L (98-107); Estimated Glomerular Filt Rate 95 ml/min (>60); GFR (African American) 116 ML/MIN (>60); Glucose 83 mg/dl (74-100); Potassium 4.5 mmoL/L (3.5-5.1); Sodium 122 mmol/L (136-145)
== END ==
PROVIDERS: PCP Internal Medicine Adolescent Medicine; Visit Provider Internal Medicine Adolescent Medicine
DX: L40.50 Arthropathic psoriasis, unspecified (principal); Z79.899 Other long term (current) drug therapy
CPT/HCPCS: 80048

== ENCOUNTER → 2023-03-29 16:04 | Outpatient (CLI) | payer MEDICARE, OTHER, SELFPAY ==
[2023-03-29 17:48] LABS: Anion Gap 16.5 mEq/L (5-15); Blood Urea Nitrogen 12 mg/dl (7-17); Calcium 8.8 mg/dl (8.4-10.2); Carbon Dioxide 26 mmol/L (22.0-30.0); Chloride 85 mmol/L (98-107); Estimated Glomerular Filt Rate 80 ml/min (>60); GFR (African American) 97 ML/MIN (>60); Glucose 108 mg/dl (74-100); Potassium 4.5 mmoL/L (3.5-5.1); Sodium 123 mmol/L (136-145)
== END ==
PROVIDERS: PCP Internal Medicine Adolescent Medicine; Visit Provider Internal Medicine Adolescent Medicine
DX: R73.9 Hyperglycemia, unspecified (principal)
CPT/HCPCS: 80048

== ENCOUNTER → 2023-04-05 09:58 | Outpatient (CLI) | payer MEDICARE, OTHER, SELFPAY ==
--- NOTE | 2023-04-05 10:05 | CT_ITS ---
FINAL REPORT TECHNIQUE: Axial images were obtained from the lung apex to the mid abdomen by computed tomography. Coronal reformatted images were obtained. This study was performed with techniques to keep radiation doses as low as reasonably achievable, (ALARA). Individualized dose reduction techniques using automated exposure control or adjustment of mA and/or kV according to the patient''s size were employed. CLINICAL HISTORY: WEIGHT LOSS,HYPONATREMIA COMPARISON: 07/22/2020 FINDINGS: There is no axillary adenopathy. There is no hilar or mediastinal mass or adenopathy. Heart size is normal. There is no pericardial or pleural effusion. There is mild scarring. There is severe degenerative change in both shoulders. There is a presumed large amount of fluid in the subacromial/subdeltoid bursa. Multilevel compression fractures are noted at L2, T9, and T7 which are new since the prior and may be due to osteoporosis, but pathologic fractures are not excluded. There is worsening mid thoracic kyphosis. There are several subacute and chronic bilateral rib fractures. IMPRESSION: Compression fractures as above, may be due to osteoporosis but pathologic fractures not excluded. Reviewed, Interpreted and Dictated by Randall Victor III, MD Transcribed by Bailee Nath Authenticated and [facility]
--- NOTE | 2023-04-05 10:05 | CT_ITS ---
FINAL REPORT CLINICAL HISTORY: WEIGHT LOSS,HYPONATREMIA COMPARISON: None FINDINGS: CT OF THE ABDOMEN AND PELVIS WITH CONTRAST Axial CT images of the abdomen and pelvis were obtained after the administration of oral and iv contrast. Coronal reformatted images were also obtained and reviewed.This study was performed with techniques to keep radiation doses as low as reasonably achievable (ALARA). Individualized dose reduction techniques using automated exposure control or adjustment of mA and/or kV according to the patient's size were employed. Abdomen: The liver has an unremarkable appearance, without evidence of mass or biliary ductal dilatation. Postcholecystectomy. There is moderate biliary ductal dilatation. Mild anasarca is noted. The spleen is unremarkable. No adrenal mass is present. The pancreas has an unremarkable appearance. The kidneys are normal, without evidence of mass or hydronephrosis. The aorta is normal in caliber. There is no free fluid or adenopathy. No mass or abnormal fluid collection is seen. There is sigmoid diverticulosis. Pelvis: The appendix is not well-visualized. There is nonspecific bladder wall thickening favored to be inflammatory. There is no evidence of mass or adenopathy. There is no evidence of bowel obstruction. IMPRESSION: Nonspecific bladder wall thickening, favor inflammatory. Reviewed, Interpreted and Dictated by Randall Victor III, MD Transcribed by Bailee Nath Authenticated and . [facility]
== END ==
PROVIDERS: PCP Internal Medicine Adolescent Medicine; Visit Provider Nurse Practitioner Family
DX: R63.4 Abnormal weight loss (principal); E87.1 Hypo-osmolality and hyponatremia
CPT/HCPCS: 71250; 74177; Q9967